=== PATIENT | female | born 1945 | race Caucasian/White ===

== ENCOUNTER → 2016-12-01 | Outpatient (REF) | payer MEDICARE, BC | LOC: M LAB REF 16:26 | PROVIDERS: ATTEND Family Medicine | DX: Z01.89 Encounter for other specified special examinations (principal) ==

== ENCOUNTER → 2016-12-31 | Outpatient (CLI) | payer MEDICARE, BC ==
--- NOTE | 2016-12-31 15:36 | REPMRS ---
Patient History The patient states she has not had a clinical breast exam in over a year. Patient is postmenopausal. Family history of ovarian cancer in mother at age 45, breast cancer in maternal aunt at age 50 or over, ovarian cancer in maternal aunt, and colorectal cancer in paternal grandmother. Digital Woman Screen Mammo: December 31, 2016 - Exam #: [id number] Bilateral CC and MLO view(s) were taken. Technologist: Karlene Colvin, Technologist Prior study comparison: December 18, 2015, digital woman screen mammo performed at [facility]. November 16, 2014, digital woman screen mammo performed at [facility]. FINDINGS: There are scattered fibroglandular densities. There has been no change in the appearance of the mammogram from the prior studies. There is a mild amount of residual fibroglandular tissue which is fairly symmetric. There is no interval development of dominant mass, architectural distortion, or clustered microcalcification suggestive of malignancy. ASSESSMENT: BI-RADS/ACR category 1 mammogram. Negative. Recommendation Routine screening mammogram in 1 year (for women over age 40). This mammogram was interpreted with the aid of an FDA-approved computer-aided dectection system. Electronically Signed By: Ron West MD 12/31/16 [id number]
== END ==
LOC: M WHC 14:25
PROVIDERS: ATTEND Obstetrics & Gynecology
DX: Z12.31 Encounter for screening mammogram for malignant neoplasm of breast (principal); Z78.0 Asymptomatic menopausal state; Z80.41 Family history of malignant neoplasm of ovary

== ENCOUNTER 2017-03-26 07:34 | Day surgery (SDC) | payer MEDICARE, BC ==
[~2017-03-26] VITALS: Ht 162.6 cm; Wt 85.3 kg
[~2017-03-26 07:34] MED LIST: FISH500C PO; LEVO175T2 PO; MULT1TAB10 PO; OMEP40CA2 PO; SERT-138 PO; SIMV20TA2 PO; TROS60CA2 PO
[2017-03-26] MEDS ORDERED: NS 1,000 ML IV ONE (08:00)
[2017-03-26] MEDS ORDERED: LIDOCAINE 2% INJ 100 MG/5 ML SDV (FOR ANES.) As Ordered ONE (08:42)
[2017-03-26] MEDS ORDERED: PROPOFOL 200 MG/20 ML VIAL As Ordered ONE ×2 (08:42→09:01)
--- NOTE | 2017-03-26 09:09 | ROOR ---
Patient Name: Jane Winkler Procedure Date: 03/26/2017 8:32 AM Date of : 1945 Age: 72 Room: [facility] Gender: Female Note Status: Finalized Procedure: Colonoscopy Indications: Screening for colorectal malignant neoplasm Providers: Roby Hunt Jr, MD Referring MD: Hari Morales MD Requesting Provider: Medicines: Propofol per Anesthesia Complications: No immediate complications. Procedure: Pre-Anesthesia Assessment: - Prior to the procedure, a History and Physical was performed, and patient medications and allergies were reviewed. The patient is competent. The risks and benefits of the procedure and the sedation options and risks were discussed with the patient. All questions were answered and informed consent was obtained. Patient identification and proposed procedure were verified by the physician and the nurse in the pre-procedure area and in the procedure room. Mental Status Examination: alert and oriented. Airway Examination: normal oropharyngeal airway and neck mobility. Respiratory Examination: clear to auscultation. CV Examination: normal. ASA Grade Assessment: II - A patient with mild systemic disease. After reviewing the risks and benefits, the patient was deemed in satisfactory condition to undergo the procedure. The anesthesia plan was to use moderate sedation / analgesia (conscious sedation). Immediately prior to administration of medications, the patient was re-assessed for adequacy to receive sedatives. The heart rate, respiratory rate, oxygen saturations, blood pressure, adequacy of pulmonary ventilation, and response to care were monitored throughout the procedure. The physical status of the patient was re-assessed after the procedure. The Colonoscope was introduced through the anus and advanced to the cecum, identified by appendiceal orifice and ileocecal valve. The colonoscopy was performed with moderate difficulty due to a redundant colon and significant looping. The patient tolerated the procedure well. The quality of the bowel preparation was adequate and good. Findings: Multiple small and large-mouthed diverticula were found in the sigmoid colon. A few small-mouthed diverticula were found in the descending colon. The rectum, recto-sigmoid colon, descending colon, transverse colon, ascending colon, cecum, appendiceal orifice and ileocecal valve appeared normal. A diminutive polyp was found in the transverse colon. The polyp was removed with a jumbo cold forceps. Resection and retrieval were complete. Impression: - Diverticulosis in the sigmoid colon. - Diverticulosis in the descending colon. - The rectum, recto-sigmoid colon, descending colon, transverse colon, ascending colon, cecum, appendiceal orifice and ileocecal valve are normal. - One diminutive polyp in the transverse colon, removed with a jumbo cold forceps. Resected and retrieved. Recommendation: - Repeat colonoscopy in 5-10 years for surveillance based on pathology results. - Telephone my office for pathology results in 1 week. Roby Hunt MD Roby Hunt Jr, MD 03/26/2017 9:09:27 AM This report has been signed electronically. Number of Addenda: 0 Note Initiated On: 03/26/2017 8:32 AM Estimated Blood Loss: Estimated blood loss: none.
[2017-03-26 09:35] VITALS: BP 148/80
== END 2017-03-26 09:35 | disposition home or self-care (01) ==
LOC: M OPP 07:34
PROVIDERS: ATTEND Surgery
DX: Z12.11 Encounter for screening for malignant neoplasm of colon (principal); Z86.010 Personal history of colon polyps; D12.3 Benign neoplasm of transverse colon; K57.30 Diverticulosis of large intestine without perforation or abscess without bleeding; E03.9 Hypothyroidism, unspecified; Z87.19 Personal history of other diseases of the digestive system; R12 Heartburn; K21.9 Gastro-esophageal reflux disease without esophagitis; Z86.718 Personal history of other venous thrombosis and embolism; M19.90 Unspecified osteoarthritis, unspecified site; I63.9 Cerebral infarction, unspecified; Z96.652 Presence of left artificial knee joint; Z88.1 Allergy status to other antibiotic agents; Z88.5 Allergy status to narcotic agent; Z79.899 Other long term (current) drug therapy; Z80.42 Family history of malignant neoplasm of prostate; Z80.41 Family history of malignant neoplasm of ovary; Z87.891 Personal history of nicotine dependence

== ENCOUNTER → 2017-04-30 | Day surgery (SDC) | payer MEDICARE, BC ==
[~2017-04-30] VITALS: Ht 160 cm; Wt 84.7 kg
[~2017-04-30] MED LIST changes: +BUPIVACAINE HCL 0.25% 10 ML VIAL As Ordered ONE; +IBUPROFEN 600 MG TAB PO PRN; +LIDOCAINE 1% MDV 20ML VIAL SQ PRN; +LIDOCAINE 2% INJ 100 MG/5 ML SDV (FOR ANES.) As Ordered ONE; +LR 1,000 ML IV ONE; +LR 1,000 ML IV SCH; +MIDAZOLAM INJ 2 MG/2 ML VIAL (J2250) As Ordered ONE; +MORPHINE 10 MG/ML 1ML VIAL IV PRN; +ONDANSETRON 4MG/2ML VIAL (J2405) As Ordered ONE; +ONDANSETRON 4MG/2ML VIAL (J2405) IV PRN; +PERCOCET 5MG/325MG TAB PO PRN; +PROPOFOL 200 MG/20 ML VIAL As Ordered ONE; +dexameTHASONE 4 MG/ML 1ML VIAL (J1100) As Ordered ONE; +fentaNYL 100 MCG/2 ML INJECTION (J3010) As Ordered ONE
[2017-04-30] MEDS: VANCOMYCIN HCL 1,000 MG, VIAL MATE ADAPTER 1 EACH in D5W 250 ML IV ONE ×2 (07:20→08:20)
[2017-04-30 10:45] VITALS: BP 166/79
--- NOTE | 2017-05-02 21:14 | RO ---
DATE OF PROCEDURE: 04/30/2017 PREOPERATIVE DIAGNOSIS: Incontinence with intrinsic sphincteric deficiency. POSTOPERATIVE DIAGNOSIS: Incontinence with intrinsic sphincteric deficiency. PROCEDURE: Cystourethroscopy with periurethral bulking using Macroplastique. SURGEON: Dr. Carlota Perea TEACHER ASSISTANT: None. ANESTHESIA: MAC and local. She also had a periurethral local anesthetic block. DESCRIPTION OF PROCEDURE: Jane was brought to the operating room where sufficient sedation and then she was prepped, draped and positioned in the usual sterile fashion and a periurethral block using 0.25% Marcaine, approximately 4 mL was given. This was allowed to set up and then a cystoscope was placed. Her bladder was normal in appearance. The ureteral orifices were normal in appearance. There were normal jets of urine. The trigone was normal. A 360-degree evaluation of the bladder showed some changes consistent with the patient's age and history but no abnormalities. Backing into the urethra, though, at the bladder neck, the opening to the urethra was just wide open as shown in the operative photo. The needle for the Macroplastique was placed and then Macroplastique was used for periurethral bulking, injecting at 7 o'clock and 4 o'clock, approximately 1-1/2 ampules of Macroplastique used and following which the procedure was then ended with the bladder, of course, emptied at the end of the procedure. Estimated blood loss for the procedure was 1 mL or less. Fluid replacement was crystalloid. Complications: None. Jane tolerated the procedure well and was recovering in the recovery room in good condition.
== END | disposition home or self-care (01) ==
LOC: M SDC 07:05
PROVIDERS: ATTEND Obstetrics & Gynecology
DX: R32 Unspecified urinary incontinence (principal); N36.42 Intrinsic sphincter deficiency (ISD); E03.9 Hypothyroidism, unspecified; I10 Essential (primary) hypertension; K27.9 Peptic ulcer, site unspecified, unspecified as acute or chronic, without hemorrhage or perforation; K21.9 Gastro-esophageal reflux disease without esophagitis; M12.9 Arthropathy, unspecified; Z88.1 Allergy status to other antibiotic agents; Z88.5 Allergy status to narcotic agent; Z79.899 Other long term (current) drug therapy; Z86.718 Personal history of other venous thrombosis and embolism; Z86.73 Personal history of transient ischemic attack (TIA), and cerebral infarction without residual deficits; Z90.710 Acquired absence of both cervix and uterus; Z96.652 Presence of left artificial knee joint
CPT/HCPCS: 51715; J1100; J2250; J2405; J3010; J3370; L8606

== ENCOUNTER → 2018-01-13 | Outpatient (CLI) | payer MEDICARE, BC | LOC: M WHC 12:58 | DX: Z12.31 Encounter for screening mammogram for malignant neoplasm of breast (principal) | CPT/HCPCS: 77067 ==

== ENCOUNTER → 2018-03-15 | Outpatient (REF) | payer MEDICARE, BC ==
[2018-03-15 18:05] LABS: APPEARANCE, URINE CLEAR (CLEAR); BACTERIA, URINE AUTO NEGATIVE (NEGATIVE); BILIRUBIN, URINE AUTO NEGATIVE (NEGATIVE); BLOOD, URINE BLOOD NEGATIVE (NEGATIVE); COLOR, URINE STRAW (YELLOW); GLUCOSE, URINE (UA) AUTO NEGATIVE (NEGATIVE); KETONE, URINE AUTO NEGATIVE (NEGATIVE); LEUKOCYTE ESTERASE, URINE AUTO 1+ (NEGATIVE); NITRITE, URINE AUTO NEGATIVE (NEGATIVE); PROTEIN, URINE AUTO NEGATIVE (NEGATIVE); RBC, URINE AUTO 1 /HPF (0-3); SPECIFIC GRAVITY URINE AUTO 1.008 (1.002-1.035); SQUAMOUS EPITHELIAL CELL UR AU 1 /HPF (0-6); UROBILINOGEN, URINE AUTO 0.2 mg/dL (0.0-2.0); WBC, URINE AUTO 1 /HPF (0-3)
== END ==
LOC: M LAB REF 16:27
DX: R35.0 Frequency of micturition (principal); M54.5 Low back pain
CPT/HCPCS: 81001

== ENCOUNTER → 2018-03-29 | Outpatient (CLI) | payer MEDICARE, BC ==
[2018-03-29 17:13] LABS: BLOOD UREA NITROGEN 19 MG/DL (7-18)
[2018-03-29 17:13] LABS: CREATININE FOR GFR 0.65 MG/DL (0.55-1.30); GLOMERULAR FILTRATION RATE > 60.0 (>39)
== END ==
LOC: M WUC 15:12
DX: R10.31 Right lower quadrant pain (principal)
CPT/HCPCS: 82565

== ENCOUNTER → 2018-07-21 | Outpatient (CLI) | payer MEDICARE, BC ==
[~2018-07-21] MED LIST changes: -BUPIVACAINE HCL 0.25% 10 ML VIAL As Ordered ONE; -IBUPROFEN 600 MG TAB PO PRN; -LIDOCAINE 1% MDV 20ML VIAL SQ PRN; -LIDOCAINE 2% INJ 100 MG/5 ML SDV (FOR ANES.) As Ordered ONE; -LR 1,000 ML IV ONE; -LR 1,000 ML IV SCH; -MIDAZOLAM INJ 2 MG/2 ML VIAL (J2250) As Ordered ONE; -MORPHINE 10 MG/ML 1ML VIAL IV PRN; -ONDANSETRON 4MG/2ML VIAL (J2405) As Ordered ONE; -ONDANSETRON 4MG/2ML VIAL (J2405) IV PRN; -PERCOCET 5MG/325MG TAB PO PRN; -PROPOFOL 200 MG/20 ML VIAL As Ordered ONE; +ZANT300T9 PO; -dexameTHASONE 4 MG/ML 1ML VIAL (J1100) As Ordered ONE; -fentaNYL 100 MCG/2 ML INJECTION (J3010) As Ordered ONE
[2018-07-21 13:38] LABS: HEMATOCRIT 40.9 % (36.0-47.0); HEMOGLOBIN 13.4 g/dl (12.0-15.5); MEAN CORPUSCULAR HEMOGLOBIN 31.3 pg (27.0-33.0); MEAN CORPUSCULAR HGB CONC 32.8 g/dl (32.0-36.5); MEAN CORPUSCULAR VOLUME 95.6 fl (80.0-96.0); PLATELET COUNT, AUTOMATED 230 10^3/uL (150-450); RED BLOOD COUNT 4.28 10^6/uL (4.00-5.40); WHITE BLOOD COUNT 5.8 10^3/uL (4.0-10.0)
[2018-07-21 14:05] LABS: ALBUMIN 3.8 GM/DL (3.2-5.2); ALT/SGPT 23 U/L (12-78); BILIRUBIN,TOTAL 0.4 MG/DL (0.2-1.0); BLOOD UREA NITROGEN 22 MG/DL (7-18); CALCIUM LEVEL 9.6 MG/DL (8.8-10.2); CARBON DIOXIDE LEVEL 31 MEQ/L (21-32); CHLORIDE LEVEL 103 MEQ/L (98-107); GLOMERULAR FILTRATION RATE > 60.0 (>39); GLUCOSE, FASTING 87 MG/DL (70-100); POTASSIUM SERUM 4.4 MEQ/L (3.5-5.1); SODIUM LEVEL 139 MEQ/L (136-145); TOTAL PROTEIN 6.9 GM/DL (6.4-8.2)
--- NOTE | 2018-07-21 17:44 | ECGEPIP ---
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
== END ==
LOC: M LAB 13:11
PROVIDERS: ATTEND Anesthesiology
DX: Z01.810 Encounter for preprocedural cardiovascular examination (principal)

== ENCOUNTER 2018-07-27 06:21 | Day surgery (SDC) | payer MEDICARE, BC ==
[~2018-07-27] VITALS: Ht 162.6 cm; Wt 78.2 kg
[2018-07-27] MEDS ORDERED: ERTAPENEM SODIUM 1 GM in NS 50 ML IV ONE (07:00)
[2018-07-27] MEDS ORDERED: LR 1,000 ML IV ONE (07:00)
[2018-07-27] MEDS ORDERED: BUPIVACAINE/EPIN 0.25% 30 ML VIAL As Ordered ONE (07:12)
[2018-07-27] MEDS ORDERED: ONDANSETRON 4MG/2ML VIAL (J2405) As Ordered ONE (07:15)
[2018-07-27] MEDS ORDERED: ROCURONIUM BROMIDE 50 MG/5 ML VIAL As Ordered ONE (07:15)
[2018-07-27] MEDS ORDERED: PROPOFOL 200 MG/20 ML VIAL As Ordered ONE (07:15)
[2018-07-27] MEDS ORDERED: LIDOCAINE 2% INJ 100 MG/5 ML SDV (FOR ANES.) As Ordered ONE (07:15)
[2018-07-27] MEDS ORDERED: METOCLOPRAMIDE INJ 10MG/2ML VIAL (J2765) As Ordered ONE (07:15)
[2018-07-27] MEDS ORDERED: fentaNYL 100 MCG/2 ML INJECTION (J3010) As Ordered ONE (07:17)
[2018-07-27] MEDS ORDERED: MIDAZOLAM INJ 2 MG/2 ML VIAL (J2250) As Ordered ONE (07:17)
[2018-07-27] MEDS ORDERED: SUGAMMADEX SODIUM 500 MG/5 ML VIAL (BRIDION) As Ordered ONE (08:02)
[2018-07-27] MEDS ORDERED: LABETALOL HCL 100 MG/20 ML VIAL As Ordered ONE (08:33)
[2018-07-27] MEDS ORDERED: BUPIVACAINE LIPOSOME/PF 1.3% 20ML VIAL (13.3MG/ML)(EXPAREL)(C9290 PER1MG) As Ordered ONE (08:35)
[2018-07-27] MEDS ORDERED: PERCOCET 5MG/325MG TAB As Ordered ONE (09:12)
[2018-07-27] MEDS ORDERED: fentaNYL 100 MCG/2 ML INJECTION (J3010) IV PRN (09:15)
[2018-07-27] MEDS ORDERED: ONDANSETRON 4MG/2ML VIAL (J2405) IV PRN ×2 (09:15)
[2018-07-27] MEDS ORDERED: LR 1,000 ML IV SCH ×2 (09:15)
[2018-07-27] MEDS ORDERED: KETOROLAC 30 MG/ML VIAL (J1885) IV SCH (09:15)
[2018-07-27] MEDS ORDERED: MEPERIDINE INJ 25 MG/ML VIAL (J2175) IV PRN (09:15)
[2018-07-27] MEDS ORDERED: METOCLOPRAMIDE INJ 10MG/2ML VIAL (J2765) IV PRN (09:15)
[2018-07-27] MEDS ORDERED: PERCOCET 5MG/325MG TAB PO PRN (09:45)
[2018-07-27 11:10] VITALS: BP 187/84
--- NOTE | 2018-07-27 22:37 | RO ---
DATE OF PROCEDURE: 07/27/2018 PREOPERATIVE DIAGNOSIS: Abnormal appendix. History of appendicitis. POSTOPERATIVE DIAGNOSIS: Abnormal appendix. History of appendicitis. OPERATIVE PROCEDURE: Laparoscopic appendectomy. SURGEON: Roby Hunt MD CNC MILLING MACHINIST: ANESTHESIA: General endotracheal anesthesia ESTIMATED BLOOD LOSS: Minimal. FLUIDS: Crystalloid. BRIEF PROCEDURE SUMMARY The patient was brought to the operating room and was given general anesthesia. After adequate anesthesia and preoperative antibiotics were given, the patient was prepped and draped in the usual sterile fashion. Next, a supraumbilical incision was made with skin knife. Blunt dissection was carried down to fascia. Veress needle placed into the abdominal cavity insufflated to 15 mm of pressure. A 5 mm trocar was placed at this time and under direct visualization a left lateral 5 mm trocar was placed. There were numerous adhesions of the omentum up against the midline incision where the previous hysterectomy lower midline incision had been performed and thus a second left lower quadrant 5 mm trocar was placed and the adhesions were taken down with harmonic scalpel. 12 mm trocar was replaced at the umbilicus. Then the colon was evaluated. It was mobilized. First the ascending colon was followed down to the right pelvic sidewall and then eventually the cecum was seen and some adhesions were taken down on the right lateral abdominal wall first and then after these were taken down, the appendix was mobilized out of the pelvis and the mesoappendix was transected using a harmonic scalpel. This provided good hemostasis and the dissection continued all the way to the base of the appendix. The appendix was quite enlarged and dilated and had a firm mass within the distal portion of this. It is hard to tell if this was a mucocele or a lesion within the appendix itself. In any case, the base of the appendix was transected using the Endo-LUI stapler placed in an EndoCatch bag and brought out through a supraumbilical incision. Once again this lesion was quite large and the incision needed to be extended to about 3 cm to get this large appendix out. Once it was removed the trocars removed under direct visualization, #0 Vicryl was used to close the fascia at the supraumbilical site and #4-0 Vicryl was used to approximate the skin. Steri-Strips and a dry sterile dressing was applied. The patient was awakened from her anesthesia, extubated, brought to the recovery room awake, alert and hemodynamically stable. Sponge and needle counts correct times two.
== END 2018-07-27 11:25 | disposition home or self-care (01) ==
LOC: M SDC 06:21
PROVIDERS: ATTEND Surgery
DX: K38.8 Other specified diseases of appendix (principal); E03.9 Hypothyroidism, unspecified; E78.00 Pure hypercholesterolemia, unspecified; E66.9 Obesity, unspecified; R32 Unspecified urinary incontinence; Z88.1 Allergy status to other antibiotic agents; Z88.5 Allergy status to narcotic agent; Z79.899 Other long term (current) drug therapy; Z87.19 Personal history of other diseases of the digestive system; Z86.718 Personal history of other venous thrombosis and embolism; Z96.652 Presence of left artificial knee joint; Z86.73 Personal history of transient ischemic attack (TIA), and cerebral infarction without residual deficits; Z90.710 Acquired absence of both cervix and uterus
CPT/HCPCS: 44970; 88304; C9290; J1335; J1885; J2250; J2405; J2765; J3010

== ENCOUNTER → 2019-02-09 | Outpatient (CLI) | payer MEDICARE, BC ==
--- NOTE | 2019-02-09 14:40 | REPMRS ---
Patient History The patient states she had a clinical breast exam in 12/2018. Patient is postmenopausal. Patient had tested negative for BRCA1 and negative for BRCA2. Family history of ovarian cancer at age 45 in mother, breast cancer at age 50 or over and ovarian cancer at age 50 or over in maternal aunt, colorectal cancer under age 50 in paternal grandmother. 3D TOMOSYNTHESIS WAS PERFORMED. The [facility] lifetime risk for breast cancer is 4.5%. Digital Woman Screen Mammo: February 09, 2019 - Exam #: [id number] Bilateral CC and MLO view(s) were taken. Technologist: Bren Grewal, Technologist Prior study comparison: January 13, 2018, bilateral digital woman screen mammo performed at [facility]. December 31, 2016, digital woman screen mammo performed at [facility]. FINDINGS: The breast tissue is heterogeneously dense. This may lower the sensitivity of mammography. There has been no change in the appearance of the mammogram from the prior studies. There is a moderate amount of residual fibroglandular tissue which is fairly symmetric. There is no interval development of dominant mass, areas of architectural distortion, or clustered microcalcification typical of malignancy. Assessment: BI-RADS/ACR category 1 mammogram. Negative Mammogram. Recommendation Routine screening mammogram in 1 year (for women over age 40). This mammogram was interpreted with the aid of an FDA-approved computer-aided dectection system. Electronically Signed By: Ron West MD 02/09/19 [id number]
== END ==
LOC: M WHC 12:55
PROVIDERS: ATTEND Obstetrics & Gynecology
DX: Z12.31 Encounter for screening mammogram for malignant neoplasm of breast (principal); Z78.0 Asymptomatic menopausal state; Z80.41 Family history of malignant neoplasm of ovary

== ENCOUNTER 2019-05-28 23:22 | Emergency (ER) | payer MEDICARE, BC ==
[~2019-05-28] VITALS: Ht 162.6 cm; Wt 77.3 kg
[~2019-05-28 23:22] MED LIST changes: -OMEP40CA2 PO; +OMEP40CA97 PO; -SIMV20TA2 PO; +SIMV20TA22 PO
--- NOTE | 2019-05-29 00:03 | REPVR ---
PROCEDURE INFORMATION: Exam: CT Head Without Contrast Exam date and time: 05/28/2019 11:40 PM Age: 74 years old Clinical indication: Injury or trauma; Fall; Initial encounter; Blunt trauma (contusions or hematomas); With loss of consciousness; Not specified; Additional info: Fall loc TECHNIQUE: Imaging protocol: Computed tomography of the head without contrast. Radiation optimization: All CT scans at this facility use at least one of these dose optimization techniques: automated exposure control; mA and/or kV adjustment per patient size (includes targeted exams where dose is matched to clinical indication); or iterative reconstruction. COMPARISON: No relevant prior studies available. FINDINGS: Brain: Thin parafalcine subdural hematoma measuring up to 6 mm thick. Hematoma extends along the right tentorial leaflet. No intra-axial hemorrhage or signs of recent infarction. Additional density over the left anterior frontal lobe may be an artifact related to motion versus additional small subdural hemorrhage. Midline shift: No midline shift or herniation. Ventricles: Normal. No ventriculomegaly. Bones/joints: Unremarkable. No acute fracture. Sinuses: Visualized sinuses are unremarkable. No fluid levels. Mastoid air cells: Visualized mastoid air cells are well aerated. Soft tissues: Large right posterior scalp hematoma . Other findings: The exam is degraded by patient motion artifact. IMPRESSION: 1. Parafalcine subdural hematoma extending along the right tentorial leaflet. 2. Possible left frontal subdural hematoma versus artifact related to patient motion. Short-term follow-up is suggested. 3. No midline shift or herniation. 4. Posterior scalp hematoma. 5. Motion limited exam. Electronically signed by: Michael rG On 05/29/2019 00:02:29 AM
--- NOTE | 2019-05-29 00:10 | REPVR ---
PROCEDURE INFORMATION: Exam: CT Cervical Spine Without Contrast Exam date and time: 05/28/2019 11:40 PM Age: 74 years old Clinical indication: Injury or trauma; Fall; Initial encounter; Blunt trauma; Additional info: Fall loc TECHNIQUE: Imaging protocol: Computed tomography images of the cervical spine without contrast. Radiation optimization: All CT scans at this facility use at least one of these dose optimization techniques: automated exposure control; mA and/or kV adjustment per patient size (includes targeted exams where dose is matched to clinical indication); or iterative reconstruction. COMPARISON: No relevant prior studies available. FINDINGS: Vertebrae: Straightening of the normal cervical lordosis without subluxation. No fracture or bone lesions. Multilevel facet DJD. Discs/Spinal canal/Neural foramina: Multilevel discogenic degenerative changes. No bony spinal stenosis. Mild multilevel foraminal stenosis. Soft tissues: Unremarkable. Lungs: Lung apices are normal. IMPRESSION: 1. Advanced degenerative spondylosis. 2. No fracture or malalignment. Electronically signed by: Michael Gr On 05/29/2019 00:10:01 AM
[2019-05-29] MEDS ORDERED: niCARdipine IV 40 MG in IV 1 EA IV SCH (00:45)
[2019-05-29 00:48] LABS: BASO # 0.1 10^3/uL (0.0-0.2); BASO % 0.8 % (0.0-1.0); EOS # 0.1 10^3/uL (0.0-0.5); EOS % 1.5 % (0.0-3.0); HEMOGLOBIN 14.9 g/dl (12.0-15.5); LYMPH # 1.4 10^3/uL (1.5-5.0); LYMPH % 15.7 % (24.0-44.0); MEAN CORPUSCULAR HEMOGLOBIN 30.8 pg (27.0-33.0); MEAN CORPUSCULAR HGB CONC 31.7 g/dl (32.0-36.5); MEAN CORPUSCULAR VOLUME 97.1 fl (80.0-96.0); MONO # 0.5 10^3/uL (0.0-0.8); MONO % 5.3 % (0.0-5.0); NEUTROPHILS # 6.8 10^3/uL (1.5-8.5); NEUTROPHILS % 76.3 % (36.0-66.0); PLATELET COUNT, AUTOMATED 211 10^3/uL (150-450); RED BLOOD COUNT 4.84 10^6/uL (4.00-5.40); WHITE BLOOD COUNT 8.9 10^3/uL (4.0-10.0)
[2019-05-29] MEDS ORDERED: MULTTAB61 PO (00:55)
[2019-05-29] MEDS ORDERED: NIZA150C4 PO (00:55)
[2019-05-29 01:01] LABS: INR 0.93; PROTHROMBIN TIME 12.1 SECONDS (11.8-14.0)
[2019-05-29 01:16] LABS: BLOOD UREA NITROGEN 18 MG/DL (7-18); CALCIUM LEVEL 9.4 MG/DL (8.8-10.2); CARBON DIOXIDE LEVEL 27 MEQ/L (21-32); CHLORIDE LEVEL 105 MEQ/L (98-107); CREATININE FOR GFR 0.69 MG/DL (0.55-1.30); GLOMERULAR FILTRATION RATE > 60.0 (>39); GLUCOSE, FASTING 101 MG/DL (70-100); POTASSIUM SERUM 3.8 MEQ/L (3.5-5.1); SODIUM LEVEL 140 MEQ/L (136-145)
[2019-05-29 01:22] VITALS: BP 123/62
== END 2019-05-29 01:28 | disposition short-term general hospital (02) ==
LOC: M ED 23:22
DX: S06.5X0A Traumatic subdural hemorrhage without loss of consciousness, initial encounter (principal); W10.8XXA Fall (on) (from) other stairs and steps, initial encounter; Y92.018 Other place in single-family (private) house as the place of occurrence of the external cause; J45.909 Unspecified asthma, uncomplicated; E78.00 Pure hypercholesterolemia, unspecified; Z79.899 Other long term (current) drug therapy; Z88.1 Allergy status to other antibiotic agents; Z88.5 Allergy status to narcotic agent

== ENCOUNTER → 2019-06-15 | Outpatient (CLI) | payer MEDICARE, BC ==
[~2019-06-15] MED LIST changes: +MULTTAB61 PO; +NIZA150C4 PO
--- NOTE | 2019-06-15 14:53 | REP ---
PA and lateral chest: Comparison is 07/28/2008. The lung dunaway are clear. The cardiac size is normal. The lewis, mediastinum, and skeletal structures are unremarkable. Impression: Negative PA and lateral chest. There is no interval change. Electronically Signed by Ron Porras MD 06/15/2019 02:44 P
[2019-06-15 18:39] LABS: INFLUENZA A AMPLIFICATION POSITIVE (NEGATIVE); INFLUENZA B AMPLIFICATION NEGATIVE (NEGATIVE)
== END ==
LOC: M WUC 14:34
PROVIDERS: ATTEND Registered Nurse
DX: R50.9 Fever, unspecified (principal); R05 Cough

== ENCOUNTER 2019-08-13 10:22 | Emergency (ER) | payer MEDICARE, BC ==
[~2019-08-13] VITALS: Ht 162.6 cm; Wt 79.0 kg
[2019-08-13] MEDS ORDERED: VALA1TAB5 (10:32)
[2019-08-13] MEDS ORDERED: VALT1TAB PO (12:08)
[2019-08-13] MEDS ORDERED: ERYT1OIN26 OP (12:09)
[2019-08-13 12:17] VITALS: BP 159/86
== END 2019-08-13 12:18 | disposition home or self-care (01) ==
LOC: M ED 10:22
DX: H10.32 Unspecified acute conjunctivitis, left eye (principal); B02.9 Zoster without complications; Z88.1 Allergy status to other antibiotic agents; Z88.5 Allergy status to narcotic agent; Z79.899 Other long term (current) drug therapy; Z79.890 Hormone replacement therapy

== ENCOUNTER → 2020-03-20 | Outpatient (CLI) | payer MEDICARE, BC ==
[~2020-03-20] MED LIST changes: +ERYT5OIN25 OP; +VALA1TAB5; +VALT1TAB PO
--- NOTE | 2020-03-20 14:40 | REPMRS ---
Patient History The patient states she had a clinical breast exam in 01/2020. Patient is postmenopausal. Patient had tested negative for BRCA1 and negative for BRCA2. Family history of ovarian cancer at age 45 in mother, breast cancer at age 50 or over and ovarian cancer at age 50 or over in maternal aunt, colorectal cancer under age 50 in paternal grandmother. No Hormone Replacement Therapy Digital Woman Screen Mammo: March 20, 2020 - Exam #: [id number] Bilateral CC and MLO view(s) were taken. Technologist: Karlene Colvin, Technologist Prior study comparison: February 09, 2019, bilateral digital woman screen mammo performed at [facility]. January 13, 2018, bilateral digital woman screen mammo performed at [facility]. December 31, 2016, digital woman screen mammo performed at [facility]. FINDINGS: There are scattered fibroglandular densities. The Volpara volumetric breast density category is:B. There has been no change in the appearance of the mammogram from the prior studies. There is a mild amount of scattered fibroglandular density which is fairly symmetric. There is no interval development of dominant mass, architectural distortion, or grouped microcalcification suggestive of malignancy. 3-D tomosynthesis shows no additional findings. Assessment: BI-RADS/ACR category 1 mammogram. Negative Mammogram. Recommendation Routine screening mammogram of both breasts in 1 year (for women over age 40). This patient's Lifetime Breast Cancer Risk is estimated at 4.0 %. This mammogram was interpreted with the aid of an FDA-approved computer-aided dectection system. Electronically Signed By: Mihir Gilmore MD 03/20/20 [id number]
== END ==
LOC: M WHC 13:35
PROVIDERS: ATTEND Obstetrics & Gynecology
DX: Z12.31 Encounter for screening mammogram for malignant neoplasm of breast (principal); Z80.41 Family history of malignant neoplasm of ovary; Z80.0 Family history of malignant neoplasm of digestive organs

== ENCOUNTER 2020-07-30 16:10 | Emergency (ER) | payer MEDICARE, BC ==
[~2020-07-30] VITALS: Ht 160 cm; Wt 81.8 kg
[~2020-07-30 16:10] MED LIST changes: -COLA100C5 PO; -GASTROGRAFIN SOLUTION 30ML (Q9963) As Ordered ONE; -ISOVUE-370 76% 100ML VIAL As Ordered ONE
[2020-07-30 16:57] LABS: BASO # 0.1 10^3/uL (0.0-0.2); EOS # 0.2 10^3/uL (0.0-0.5); EOS % 3.9 % (0.0-3.0); HEMATOCRIT 41.5 % (36.0-47.0); HEMOGLOBIN 13.6 g/dl (12.0-15.5); LYMPH # 1.6 10^3/uL (1.5-5.0); LYMPH % 26.8 % (24.0-44.0); MEAN CORPUSCULAR HEMOGLOBIN 31.9 pg (27.0-33.0); MEAN CORPUSCULAR HGB CONC 32.8 g/dl (32.0-36.5); MEAN CORPUSCULAR VOLUME 97.4 fl (80.0-96.0); MONO # 0.5 10^3/uL (0.0-0.8); MONO % 8.1 % (2.0-8.0); NEUTROPHILS # 3.5 10^3/uL (1.5-8.5); NEUTROPHILS % 59.9 % (36.0-66.0); PLATELET COUNT, AUTOMATED 253 10^3/uL (150-450); RED BLOOD COUNT 4.26 10^6/uL (4.00-5.40); WHITE BLOOD COUNT 5.8 10^3/uL (4.0-10.0)
[2020-07-30] MEDS ORDERED: COLA100C5 PO (18:43)
[2020-07-30 19:33] VITALS: BP 141/82
== END 2020-07-30 19:34 | disposition home or self-care (01) ==
LOC: M ED 16:10
DX: K59.00 Constipation, unspecified (principal); J45.909 Unspecified asthma, uncomplicated; E07.9 Disorder of thyroid, unspecified; E78.5 Hyperlipidemia, unspecified; Z87.19 Personal history of other diseases of the digestive system; Z79.899 Other long term (current) drug therapy; Z79.890 Hormone replacement therapy; Z88.5 Allergy status to narcotic agent; Z88.8 Allergy status to other drugs, medicaments and biological substances
CPT/HCPCS: 36415; 74178; 80047; 83605; 83690; 85025; 86677; 99284; Q9963; Q9967

== ENCOUNTER → 2020-07-30 | Outpatient (CLI) | payer MEDICARE, BC ==
[~2020-07-30] MED LIST changes: +COLA100C5 PO; +GASTROGRAFIN SOLUTION 30ML (Q9963) As Ordered ONE; +ISOVUE-370 76% 100ML VIAL As Ordered ONE
--- NOTE | 2020-07-30 15:54 | REP ---
INDICATION: EPIGASTRIC PAIN RT FLANK PAIN. COMPARISON: Abdomen/pelvis CT of 03/30/2018. TECHNIQUE: Abdomen pelvis CT without and with IV contrast and with bowel contrast FINDINGS: The distal approximate 20-30 cm of small bowel including the terminal ileum have a distinctly abnormal appearance as a change from the comparison study. This could represent ischemic versus infectious versus inflammatory ileitis and enteritis. There is no ascites. There is no pneumoperitoneum. There is no bowel obstruction. However, there is a large volume of fecal residue throughout the entire colon ho more predominant in the ascending and transverse colon, compatible with constipation.. There is diverticulosis of the descending colon and sigmoid colon without CT evidence of diverticulitis. The visualized lung dunaway are unremarkable except for fiber linear scarring. The ovoid right pelvic cystic mass identified previously is no longer present. The patient has an appendectomy and hysterectomy. The hepatic parenchyma, gallbladder, pancreas, spleen, adrenals, kidneys and abdominal aorta are unremarkable. There is no periaortic adenopathy or mass. There is calcified atheroma throughout the abdominal aorta. A [place] filter is again noted in the vena cava. Pelvis: The bladder is distended but otherwise unremarkable. The vaginal cuff and adnexa are unremarkable. IMPRESSION: Abnormal distal 20 to 30 cm the small bowel including the terminal ileum compatible with ischemic versus inflammatory versus infectious ileitis and enteritis. There is no ascites or pneumoperitoneum. There is a large volume of fecal residue particularly in the ascending colon and transverse colon compatible with constipation. There are no masses or adenopathy. Hysterectomy and appendectomy. On the comparison study there was an ovoid cystic structure in the pelvis on the right. This is no longer present. Telma filter. <Electronically signed by Ron Porras > 07/30/20 [id number]
[2020-07-30 19:05] LABS: H PYLORI QUALITATIVE IgG NEGATIVE (NEGATIVE)
== END ==
LOC: M RAD 13:10
PROVIDERS: ATTEND Nurse Practitioner Adult Health
DX: R10.13 Epigastric pain (principal)
CPT/HCPCS: 74178; 83690; 86677; Q9963; Q9967

== ENCOUNTER → 2021-03-16 | Outpatient (CLI) | payer MEDICARE, BC ==
[~2021-03-16] MED LIST changes: +ALBU8.5H; +COLA100C5 PO; +GABA-282 PO; +OMEP40CA4 PO; -OMEP40CA97 PO; +SYNT175T2; +TROS20TA3; +ZOLO100T PO
== END ==
LOC: M LABSMTC 10:44
PROVIDERS: ATTEND Anesthesiology
DX: Z01.818 Encounter for other preprocedural examination (principal); Z11.52 Encounter for screening for COVID-19

== ENCOUNTER 2021-03-21 06:12 | Day surgery (SDC) | payer MEDICARE, BC ==
[~2021-03-21] VITALS: Ht 160 cm; Wt 85.3 kg
[~2021-03-21 06:12] MED LIST changes: +LIDOCAINE 1% MDV 20ML VIAL SQ PRN; +LR 1,000 ML IV ONE; +VANCOMYCIN HCL 1,000 MG, VIAL MATE ADAPTER 1 EACH in NS 250 ML IV ONE
--- OUTSIDE RECORDS SUMMARY | 2021-03-21 06:16 | CCD | Continuity of Care Document ---
Author Author Jane MORALES M.D. Organization Unknown Address [address] [address] Phone [phone] Care Team Providers [facility] Climate Change Analyst Name Role Phone Hari Morales MD AUTM [phone] Carlota Perea MD AUTM [phone] [facility] AUTM [phone] Problems Active Problems Provider Date Backache Onset: 03/12/2011 Hemorrhoids Onset: 04/17/2010 Mixed hyperlipidemia Onset: 04/04/2010 Chronic osteoarthritis Onset: Hypothyroidism Onset: Anxiety disorder Onset: Chronic obstructive lung disease Onset: Anemia Onset: Social History Type Date Description Comments Sex Unknown ETOH Use Occasionally consumes alcohol 1 bottle of wine per week Tobacco Use Start: Unknown End: Unknown Patient is a former smoker ppd x 25 years quit 1996 Allergies, Adverse Reactions, Alerts Active Allergies Criticality Reaction | Severity Comments Date Penicillin Unable to assess criticality Mild 07/03/2008 Hydrocodone Unable to assess criticality Moderate 07/03/2008 Cephalosporins Unable to assess criticality Moderate rash, heidy a 07/03/2008 Medications Active Medications SIG Qnty Indications Ordering Provide r Date Pepcid 20mg Tablets 1 by mouth twice a day (takes OTC) 60tabs Hari Morales M.D. 03/12/2020 Neurontin 300mg Capsules 1 tablet by mouth four times a day 360caps Hari Morales M.D. 08/16/2019 Proair HFA 108(90Base) mcg/Act Aer osol 2 puffs every 4 hours as needed for cough/shortness of breath 8.500gm J20.9 Hari Morales M.D. 06/17/2018 Ketoconazole 2% Cream apply to effected area topically twice a day (face) 15gm Hari Morales M.D. 12/02/2017 Multivitamins Capsules 1 by mouth every day Hari Morales M.D. 05/25/2015 Synthroid 175mcg Tablets 1pill by mouth every day Charlie 90tapaulina Morales M.D. 11/20/2014 Sertraline HCL 100mg Tablets take one and a half tabs by mouth every day 135tabs Murray Ybarra 07/24/2014 Simvastatin 20mg Tablets 1 by mouth daily 90tabs Hari Morales M.D. Alprazolam 0.25mg Tablets one pill by mouth every eight hours as needed, 40tabs Hari hooker M.D. Trospium Chloride ER 60mg Caps ER 24HR take one capsule daily Unknown 0 Administration Of Flu Vaccine Inj ection Unknown Medications Administered in Office Medication SIG Qnty Indications Ordering Provider Date Administration Of Flu Vaccine Inj micky Morales M.D. 02/09/2020 Administration Of Flu Vaccine Inj ronion Hari Morales M.D. 02/10/2019 Administration Of Flu Vaccine Inj ronion Hari Morales M.D. 02/18/2018 Administration Of Flu Vaccine Inj ronion Hari Morales M.D. 02/19/2017 Administration Of Flu Vaccine Inj ronion Hari Morales M.D. 02/13/2016 Administration Of Flu Vaccine Inj ection KEVIN Montes 03/05/2015 Immunizations CPT Code Status Date Vaccine Lot # 51825 Given 02/09/2020 Influenza Vaccin e Quadrivalent Preser/Antibiotic Free Im Use [id number] 75065 Given 02/10/2019 Influenza Vaccin e Quadrivalent Preser/Antibiotic Free Im Use 675356 41714 Given 02/18/2018 Influenza Virus Vaccine, Quadrivalent ([id number]), Derived From 8 Given 02/19/2017 Influenza Vaccin e Quadrivalent Preser/Antibiotic Free Im Use 190220 Q2037 Given 02/13/2016 Fluvirin Virus Vaccine 38918 01 Q2037 Given 03/05/2015 Fluvirin Virus Vaccine 75924 01 65135 Given 03/07/2014 Influenza Virus Vaccine 16236 Given 08/08/2013 Pneumovax 23 16620 Given 02/14/2013 Influenza Virus Vaccine 66071 Given 03/04/2012 Influenza Virus Vaccine 46980 Given 02/19/2011 Influenza Virus Vaccine 92498 Given 10/02/2010 Zoster Vaccine 44030 Given 04/18/2010 Adacel- Tetanus Diphtheria P ertussis 19349 Given 02/27/2010 Influenza Virus Vaccine 17654 Given 04/10/1999 Hepatitis B Rey Adoles For I ntramuscular Use 15190 Given 04/10/1999 Hepatitis A Vaccine Adult Do moon Vital Signs Date Vital Result Comment 01/28/2021 11:31am BP Systolic 140 mmHg BP Diastolic 76 mmHg Heart Rate 70 /min Height 64 inches 5'4" Weight 188.00 lb BMI (Body Mass Index) 32.3 kg/m2 09/11/2020 1:36pm BP Systolic 140 mmHg BP Diastolic 76 mmHg Heart Rate 68 /min Height 64 inches 5'4" Weight 191.00 lb BMI (Body Mass Index) 32.8 kg/m2 Results Test Acquired Date Facility Test Result H/L Range Note Comprehensive Chem Profile 01/25/2021 [facility] [employer] Machine Operator: [place] [address] [phone] Glucose 92 mg/dL 74 - 99 1 BUN 17 mg/dL 7 - 18 Creatinine 0.7 mg/dL 0.6 - 1.3 Sodium 141 mEq/L 136 - 145 Potassium 4.6 mEq/L 3.5 - 5.1 Chloride 104 mEq/L 98 - 107 Carbon Dioxide 32 mEq/L 21 - 32 Calcium 9.7 mg/dL 8.5 - 10.1 Alk. Phosphatase 67 mg/dL 46 - 116 Total Bilirubin 0.6 mg/dL 0.2 - 1.0 Ast (Sgot) 19 U/L 15 - 37 Alt (SGPT) 29 U/L 12 - 78 Albumin 3.9 g/dL 3.4 - 5.0 Total Protein 7.0 g/dL 6.4 - 8.2 A/G Ratio 1.26 CALC 1.00 - 1.90 GFR >= 60 mL/min >60 GFR >= 60 mL/min >60 2 Lipid Profile 01/25/2021 [facility] , [employer] Operator: [place] [address] [phone] Cholesterol 226 mg/dL High 131 - 200 Triglycerides 49 mg/dL 30 - 150 HDL Cholesterol 91 mg/dL High 35 - 60 LDL (Calculated) 125 CALC 50 - 159 Laboratory test finding 01/25/2021 [facility], [employer] Machine Operator: Dr eKhinde [place]ckenna [place] [id number] [phone] Thyroid Stimulating Hormone 4.31 uIU/mL High 0.3 6 - 3.74 Complete Blood Count 01/25/2021 [facility] [employer] Machine Operator: Dr [place] [address] [phone] WBC 4.0 x10*3/UL Low 4.1 - 10.9 RBC 4.33 x10*6/UL 4.20 - 6.30 Hemoglobin 13.5 g/dL 12.0 - 18.0 Hematocrit 40.5 % 37.0 - 51.0 MCV 93.7 fL 80.0 - 97.0 MCH 31.3 pg 26.0 - 32.0 MCHC 33.4 g/dL 31.0 - 38.0 RDW 13.8 % High 11.6 - 13.7 PLT 225 x10*3/UL 140 - 440 MPV 7.3 FL Low 7.8 - 11.0 Lymph % 29.7 % 10.0 - 58.5 Mid % 7.0 % 1.7 - 9.3 Neut % 63.3 % 37.0 - 92.0 Lymph # 1.2 x10*3/UL 0.6 - 4.1 Mid # 0.3 x10*3/UL 0.1 - 0.6 Neut # 2.5 x10*3/UL 2.0 - 7.8 Laboratory test finding 09/10/2020 [facility], [employer] Machine Operator: [place] [address] [phone] T4 Free 0.76 ng/dL 0.76 - 1.46 Laboratory test finding 09/10/2020 [facility] [employer] Machine Operator: [place] [address] [phone] Thyroid Stimulating Hormone 3.10 uIU/mL 0.3 6 - 3.74 Lipid Profile 09/10/2020 [facility] [employer] Operator: Dr [place] [address] [phone] Cholesterol 201 mg/dL High 131 - 200 Triglycerides 46 mg/dL 30 - 150 HDL Cholesterol 95 mg/dL High 35 - 60 LDL (Calculated) 97 CALC 50 - 159 Comprehensive Chem Profile 09/10/2020 [facility] [employer] Operator: Dr [place] [address] [phone] Glucose 83 mg/dL 74 - 99 3 BUN 23 mg/dL High 7 - 18 Creatinine 0.7 mg/dL 0.6 - 1.3 Sodium 143 mEq/L 136 - 145 Potassium 4.6 mEq/L 3.5 - 5.1 Chloride 103 mEq/L 98 - 107 Carbon Dioxide 32 mEq/L 21 - 32 Calcium 8.8 mg/dL 8.5 - 10.1 Alk. Phosphatase 76 mg/dL 46 - 116 Total Bilirubin 0.6 mg/dL 0.2 - 1.0 Ast (Sgot) 23 U/L 15 - 37 Alt (SGPT) 30 U/L 12 - 78 Albumin 4.0 g/dL 3.4 - 5.0 Total Protein 7.2 g/dL 6.4 - 8.2 A/G Ratio 1.25 CALC 1.00 - 1.90 GFR >= 60 mL/min >60 GFR >= 60 mL/min >60 4 Complete Blood Count 09/10/2020 [facility] [employer] Machine Operator: [place] [address] [phone] WBC 3.9 x10*3/UL Low 4.1 - 10.9 RBC 4.26 x10*6/UL 4.20 - 6.30 Hemoglobin 13.3 g/dL 12.0 - 18.0 Hematocrit 39.7 % 37.0 - 51.0 MCV 93.3 fL 80.0 - 97.0 MCH 31.3 pg 26.0 - 32.0 MCHC 33.5 g/dL 31.0 - 38.0 RDW 14.2 % High 11.6 - 13.7 PLT 219 x10*3/UL 140 - 440 MPV 7.1 FL Low 7.8 - 11.0 Lymph % 33.2 % 10.0 - 58.5 Mid % 6.6 % 1.7 - 9.3 Neut % 60.2 % 37.0 - 92.0 Lymph # 1.3 x10*3/UL 0.6 - 4.1 Mid # 0.3 x10*3/UL 0.1 - 0.6 Neut # 2.3 x10*3/UL 2.0 - 7.8 Istat Chem8+ Panel 07/30/2020 [facility] nter [address] [place] [address] [phone] iSTAT HCT 41.0 % Normal 38.0-51.0 iSTAT Glucose 69 mg/dL Low 70-105 iSTAT Sodium 139 mEq/L Normal 136-145 iSTAT Potassium 4.1 mEq/L Normal 3.5-5.1 iSTAT CA++ 5.4 mg/dL High 4.5-5.3 iSTAT Chloride 101 mEq/L Normal 98-109 iSTAT Co2 31.0 MM/L High 23.0-27.0 iSTAT BUN 17 mg/dL Normal 8-26 iSTAT Creatinine 0.7 mg/dL Normal 0.6-1.3 Laboratory test finding 07/30/[address] [address] [phone] iSTAT Lactate 0.49 Normal 0.4-2.0 CBC With Differential 07/30/[address] [address] [phone] White Blood Count 5.8 10 Normal 4.0-10.0 Red Blood Count 4.26 10 Normal 4.00-5.40 Hemoglobin 13.6 g/dL Normal 12.0-15.5 Hematocrit 41.5 % Normal 36.0-47.0 Mean Corpuscular Volume 97.4 fl High 80.0-96.0 Mean Corpuscular Hemoglobin 31.9 pg Normal 27.0-33.0 Mean Corpuscular HGB Conc 32.8 g/dL Normal 32.0-36.5 Red Cell Distribution Width 13.2 % Normal 11.5-14.5 Platelet Count, Automated 253 10 Normal 150-450 Neutrophils % 59.9 % Normal 36.0-66.0 Lymph % 26.8 % Normal 24.0-44.0 [place] % 8.1 % High 2.0-8.0 Eos % 3.9 % High 0.0-3.0 Baso % 1.0 % Normal 0.0-1.0 Immature Granulocyte % 0.3 % Normal 0-3.0 Nucleated Red Blood Cell % 0.0 % Normal 0-0 Neutrophils # 3.5 10 Normal 1.5-8.5 Lymph # 1.6 10 Normal 1.5-5.0 [place] # 0.5 10 Normal 0.0-0.8 Eos # 0.2 10 Normal 0.0-0.5 Baso # 0.1 10 Normal 0.0-0.2 Laboratory test finding 07/30/2020 [facility] [address] [place], [place] [id number] [phone] Lipase 93 U/L Normal 73-393 H Pylori Qualitative Igg NEGATIVE Normal Negative 5 Complete Blood Count 07/30/2020 [facility] [employer] Machine Operator: [place] [address] [phone] WBC 4.9 x10*3/UL 4.1 - 10.9 RBC 4.04 x10*6/UL Low 4.20 - 6.30 Hemoglobin 12.9 g/dL 12.0 - 18.0 Hematocrit 37.1 % 37.0 - 51.0 MCV 91.8 fL 80.0 - 97.0 MCH 32.0 pg 26.0 - 32.0 MCHC 34.8 g/dL 31.0 - 38.0 RDW 13.6 % 11.6 - 13.7 PLT 277 x10*3/UL 140 - 440 MPV 7.2 FL Low 7.8 - 11.0 Lymph % 26.4 % 10.0 - 58.5 Mid % 5.9 % 1.7 - 9.3 Neut % 67.7 % 37.0 - 92.0 Lymph # 1.3 x10*3/UL 0.6 - 4.1 Mid # 0.3 x10*3/UL 0.1 - 0.6 Neut # 3.3 x10*3/UL 2.0 - 7.8 Comprehensive Chem Profile 07/30/2020 [facility] [employer] Operator: [place] [address] [phone] Glucose 80 mg/dL 74 - 99 6 BUN 18 mg/dL 7 - 18 Creatinine 0.8 mg/dL 0.6 - 1.3 Sodium 141 mEq/L 136 - 145 Potassium 4.6 mEq/L 3.5 - 5.1 Chloride 103 mEq/L 98 - 107 Carbon Dioxide 30 mEq/L 21 - 32 Calcium 9.7 mg/dL 8.5 - 10.1 Alk. Phosphatase 65 mg/dL 46 - 116 Total Bilirubin 0.5 mg/dL 0.2 - 1.0 Ast (Sgot) 18 U/L 15 - 37 Alt (SGPT) 24 U/L 12 - 78 Albumin 3.8 g/dL 3.4 - 5.0 Total Protein 7.0 g/dL 6.4 - 8.2 A/G Ratio 1.19 CALC 1.00 - 1.90 GFR >= 60 mL/min >60 GFR >= 60 mL/min >60 7 Ua Dipstick Only 07/30/2020 [facility] , [employer] Machine Operator: [place] [address] [phone] Urine Color YELLOW Yellow Urine Appearance CLEAR Clear Urine PH 6.5 units 5.0 - 9.0 Urine Specific Roy 1.015 1.005 - 1.030 Urine Leukocytes NEGATIVE Negative Urine Blood NEGATIVE Negative Urine Protein NEGATIVE Negative -Trace Urine Glucose NEGATIVE mg/dL Negative Urine Nitrite NEGATIVE Negative Urine Ketone NEGATIVE mg/dL Negative Urine Bilirubin NEGATIVE Negative Urine Urobilinogen 0.2 mg/dL 0.2 - 1.0 1 100-125 mg/dL PRE-DIABET ES/FASTING >126 mg/dL DIABETES/FASTING 2 CHRONIC KIDNEY DISEASE STAGI NG PER NKF STAGE I & II GFR >= 60 NORMAL TO MILDLY DECREASED STAGE III GFR 30-59 MODERATELY DECREASED STAGE IV GFR 15-29 SEVERELY DECREASED STAGE V GFR <15 VERY LITTLE GFR LEFT ESRD GFR <15 ON [employer]ILY [employer]ET[employer] 3 100-125 mg/dL PRE-DIABET ES/FASTING >126 mg/dL DIABETES/FASTING 4 CHRONIC KIDNEY DISEASE STAGI NG PER NKF STAGE I & II GFR >= 60 NORMAL TO MILDLY DECREASED STAGE III GFR 30-59 MODERATELY DECREASED STAGE IV GFR 15-29 SEVERELY DECREASED STAGE V GFR <15 VERY LITTLE GFR LEFT ESRD GFR <15 ON [employer]ILY [employer] 5 SERUM SAMPLES OBTAINED TOO E JACQUELINE DURING INFECTION MAY NOT CONTAIN DETECTABLE ANTIBODIES. IF H. PYLORI INFECTION IS SUSPECTED WITH A "NEGATIVE" SERUM RESULT, A FOLLOW UP SPECIMEN IS RECOMMENDED IN 2-7 WEEKS. 6 100-125 mg/dL PRE-DIABET ES/FASTING >126 mg/dL DIABETES/FASTING 7 CHRONIC KIDNEY DISEASE STAGI NG PER NKF STAGE I & II GFR >= 60 NORMAL TO MILDLY DECREASED STAGE III GFR 30-59 MODERATELY DECREASED STAGE IV GFR 15-29 SEVERELY DECREASED STAGE V GFR <15 VERY LITTLE GFR LEFT ESRD GFR <15 ON [employer]ILY [employer] Procedures Date Code Description Status 09/11/2020 45794 Office/Outpatient Established Mo d MDM 30-39 Min Completed 07/30/2020 39049 Office/Outpatient Established Lo w MDM 20-29 Min Completed 07/30/2020 28537 EKG/Interpretation & Report Comp leted 08/20/2019 [id number] Diabetic Retinal Eye Exam Comple parris 08/19/2019 [id number] Diabetic Retinal Eye Exam Comple parris 08/18/2019 [id number] Diabetic Retinal Eye Exam Comple parris 08/16/2019 [id number] Diabetic Retinal Eye Exam Comple parris 02/09/2019 [id number] Mammogram Completed 03/26/2017 [id number] Colonoscopy Completed 12/18/2015 [id number] Mammogram Completed 12/18/2011 [id number] Colonoscopy Completed Medical Devices Description No Information Available Encounters Type Date Location Provider Dx Diagnosis Office Visit 09/11/2020 1:30p [facility] Morales M.D. 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 09/11/2020 E03.9 Hypothyroidism, unspecified Alo Morales M.D. 09/11/2020 F41.9 Anxiety disorder, unspecified Wilder Morales M.D. 09/11/2020 D64.9 Anemia, unspecified Hari callejas M.D. 09/11/2020 B02.22 Postherpetic trigeminal neuralgi a Hari Morales M.D. 09/11/2020 J44.9 Chronic obstructive pulmonary di sease, aldoified Hari Morales M.D. 09/10/2020 D64.9 Anemia, unspecified Hari callejas M.D. 09/10/2020 D64.9 Anemia, unspecified Lab Schedule 09/10/2020 K21.9 Gastro-esophageal reflux disease without esophagitis Hari Morales M.D. 09/10/2020 K21.9 Gastro-esophageal reflux disease without esophagitis Lab Schedule 09/10/2020 E78.00 Pure hypercholesterolemia, unspe cified Hari Morales M.D. 09/10/2020 E78.00 Pure hypercholesterolemia, unspe cified Lab Schedule 09/10/2020 E03.9 Hypothyroidism, unspecified Alo Morales M.D. 09/10/2020 E03.9 Hypothyroidism, unspecified Lab Schedule 07/30/2020 R10.13 Epigastric pain Chantal Roca, ANP 07/30/2020 K21.9 Gastro-esophageal reflux disease without esophagitis Chantal Roca, ANP 07/30/2020 F41.9 Anxiety disorder, unspecified Na taryn Roca, ANP 07/30/2020 R06.02 Shortness of breath Chantal aly, ANP 07/30/2020 R10.84 Generalized abdominal pain NACHO Don Plan of Treatment No Information Available Functional Status Description No Information Available Mental Status Description No Information Available Referrals Description No Information Available
--- OUTSIDE RECORDS SUMMARY | 2021-03-21 06:16 | CCD ---
Continuity of Care Document (CCD) Created on: 03/08/2021 Jane Winkler External Reference #: [id number] : [id number] Sex: Female Author Author Jane MORALES M.D. Organization Unknown Address [address] [address] Phone [phone] Care Team Providers Care Fabrication And Layout Craftsman Name Role Phone Hari Morales MD AUTM [phone] Carlota Perea MD AUTM [phone] [facility] AUTM [phone] Problems Active Problems Provider Date Backache Onset: [...] smoker ppd x 25 years quit 1996 Allergies and adverse reactions Active Allergies Criticality Reaction | Severity Comments [...] a half tabs by mouth every day 135taMurray Jones 07/24/2014 Simvastatin 20mg Tablets 1 by mouth [...] CPT Code Status Date Vaccine Lot # [id number] Given 02/09/2020 Influenza Vaccin e Quadrivalent Preser/Antibiotic Free Im Use [id number] 23326 Given 02/10/2019 Influenza Vaccin e Quadrivalent Preser/Antibiotic Free Im Use [id number] 78599 Given 02/18/2018 Influenza Virus Vaccine, Quadrivalent (Cciiv4), Derived From 8 Given 02/19/2017 Influenza Vaccin e Quadrivalent Preser/Antibiotic Free Im Use [id number] Q2037 Given 02/13/2016 Fluvirin Virus Vaccine 96171 01 Q2037 Given 03/05/2015 Fluvirin Virus Vaccine 76085 01 63469 Given 03/07/2014 Influenza Virus Vaccine 47889 Given 08/08/2013 Pneumovax 23 13633 Given 02/14/2013 Influenza Virus Vaccine 79578 Given 03/04/2012 Influenza Virus Vaccine 69184 Given 02/19/2011 Influenza Virus Vaccine 49998 Given 10/02/2010 Zoster Vaccine 51673 Given 04/18/2010 Adacel- Tetanus Diphtheria P ertussis 52850 Given 02/27/2010 Influenza Virus Vaccine 84604 Given 04/10/1999 Hepatitis B Rey Adoles For I ntramuscular Use 67955 Given 04/10/1999 Hepatitis A Vaccine Adult Do moon Vital Signs Date Vital Result Comment 03/08/2021 10:15am BP Systolic 138 mmHg BP Diastolic 78 mmHg Heart Rate 66 /min Height 64 inches 5'4" Weight 189.00 lb BMI (Body Mass Index) 32.4 kg/m2 01/28/2021 11:31am BP Systolic 140 mmHg BP Diastolic 76 mmHg BP Systolic Recheck 125 mmHg BP Diastolic Recheck 70 mmHg Heart Rate 70 /min Height 64 inches 5'4" Weight 188.00 lb BMI (Body Mass Index) 32.3 kg/m2 Results Test Acquired Date Facility Test Result H/L Range Note Complete Blood Count 03/08/2021 [facility] Puzzle Assembler: Dr Kehinde Mckenna [place] [id number] [phone] WBC 4.5 x10*3/UL 4.1 - 10.9 RBC 4.26 x10*6/UL 4.20 - 6.30 Hemoglobin 13.3 g/dL 12.0 - 18.0 Hematocrit 39.2 % 37.0 - 51.0 MCV 92.0 fL 80.0 - 97.0 MCH 31.1 pg 26.0 - 32.0 MCHC 33.8 g/dL 31.0 - 38.0 RDW 13.2 % 11.6 - 13.7 PLT 236 x10*3/UL 140 - 440 MPV 7.0 FL Low 7.8 - 11.0 Lymph % 29.2 % 10.0 - 58.5 Mid % 6.1 % 1.7 - 9.3 Neut % 64.7 % 37.0 - 92.0 Lymph # 1.3 x10*3/UL 0.6 - 4.1 Mid # 0.3 x10*3/UL 0.1 - 0.6 Neut # 2.9 x10*3/UL 2.0 - 7.8 Basic Metabolic Panel 03/08/2021 [facility] Puzzle Assembler: Dr Kehinde [place] [address] [phone] Glucose 88 mg/dL 74 - 99 1 BUN 19 mg/dL High 7 - 18 Creatinine 0.6 mg/dL 0.6 - 1.3 Sodium 139 mEq/L 136 - 145 Potassium 5.1 mEq/L 3.5 - 5.1 Chloride 103 mEq/L 98 - 107 Carbon Dioxide 31 mEq/L 21 - 32 Calcium 9.6 mg/dL 8.5 - 10.1 GFR >= 60 mL/min >60 GFR >= 60 mL/min >60 2 Laboratory test finding 03/08/2021 [facility] parisa gauthier Puzzle Assembler: Dr Kehinde [place]ckenna [place] [id number] [phone] Thyroid Stimulating Hormone 1.49 uIU/mL 0.3 6 - 3.74 Laboratory test finding 03/08/2021 [facility] par[facility] Coombs Puzzle Assembler: Dr Kehinde [place]ckenna [place] [id number] [phone] T4 Free 0.99 ng/dL 0.76 - 1.46 Complete Blood Count 01/25/2021 [facility] Puzzle Assembler: Dr [place]hinde [place], [place] [id number] [phone] WBC 4.0 x10*3/UL Low 4.1 - 10.9 [...] Neut # 2.5 x10*3/UL 2.0 - 7.8 Comprehensive Chem Profile 01/25/2021 [facility], Puzzle Assembler: [place] [address] [phone] Glucose 92 mg/dL 74 - 99 3 BUN 17 mg/dL 7 - 18 Creatinine [...] >60 GFR >= 60 mL/min >60 4 Lipid Profile 01/25/2021 [facility] , Puzzle Assembler: [place] [address] [phone] Cholesterol 226 mg/dL High 131 - 200 Triglycerides 49 mg/dL 30 - 150 HDL Cholesterol 91 mg/dL High 35 - 60 LDL (Calculated) 125 CALC 50 - 159 Laboratory test finding 01/25/2021 [facility] Puzzle Assembler: Dr Kehinde [place] [address] [phone] Thyroid Stimulating Hormone 4.31 uIU/mL High 0.3 6 - 3.74 Complete Blood Count 09/10/2020 [facility] Puzzle Assembler: [place] [address] [phone] WBC 3.9 x10*3/UL Low 4.1 - 10.9 [...] Neut # 2.3 x10*3/UL 2.0 - 7.8 Comprehensive Chem Profile 09/10/2020 [facility] par[facility] pantoja Puzzle Assembler: [place] [address] [phone] Glucose 83 mg/dL 74 - 99 5 BUN 23 mg/dL High 7 - 18 [...] mL/min >60 GFR >= 60 mL/min >60 6 Lipid Profile 09/10/2020 [facility] Puzzle Assembler: [place] [address] [phone] Cholesterol 201 mg/dL High 131 - 200 Triglycerides 46 mg/dL 30 - 150 HDL Cholesterol 95 mg/dL High 35 - 60 LDL (Calculated) 97 CALC 50 - 159 Laboratory test finding 09/10/2020 [facility] Puzzle Assembler: ZEUS Zimmer [id number] [phone] Thyroid Stimulating Hormone 3.10 uIU/mL 0.3 6 - 3.74 Laboratory test finding 09/10/2020 [facility] parisa gauthier Puzzle Assembler: [place] [address] [phone] T4 Free 0.76 ng/dL 0.76 - 1.46 1 100-125 mg/dL PRE-DIABET ES/FASTING >126 mg/dL DIABETES/FASTING 2 CHRONIC KIDNEY DISEASE STAGI NG PER NKF STAGE I & II GFR >= 60 NORMAL TO MILDLY DECREASED STAGE III GFR 30-59 MODERATELY DECREASED STAGE IV GFR 15-29 SEVERELY DECREASED STAGE V GFR <15 VERY LITTLE GFR LEFT ESRD GFR <15 ON SINGLE CORNER CUTTER 3 100-125 mg/dL PRE-DIABET ES/FASTING >126 mg/dL DIABETES/FASTING 4 CHRONIC KIDNEY DISEASE STAGI NG PER NKF STAGE I & II GFR >= 60 NORMAL TO MILDLY DECREASED STAGE III GFR 30-59 MODERATELY DECREASED STAGE IV GFR 15-29 SEVERELY DECREASED STAGE V GFR <15 VERY LITTLE GFR LEFT ESRD GFR <15 ON SINGLE CORNER CUTTER 5 100-125 mg/dL PRE-DIABET ES/FASTING >126 mg/dL DIABETES/FASTING 6 CHRONIC KIDNEY DISEASE STAGI NG PER NKF STAGE I & II GFR >= 60 NORMAL TO MILDLY DECREASED STAGE III GFR 30-59 MODERATELY DECREASED STAGE IV GFR 15-29 SEVERELY DECREASED STAGE V GFR <15 VERY LITTLE GFR LEFT ESRD GFR <15 ON SINGLE CORNER CUTTER Procedures Date Code Description Status 09/11/2020 14946 Office/Outpatient Established Mo d MDM 30-39 Min Completed 08/20/2019 360077858 Diabetic Retinal Eye Exam Comple parris 08/19/2019 [id number] Diabetic Retinal Eye Exam Comple parris 08/18/2019 839174505 Diabetic Retinal Eye Exam Comple parris 08/16/2019 [id number] Diabetic Retinal Eye Exam Comple [facility] 02/09/2019 [id number] Mammogram Completed 03/26/2017 [id number] Colonoscopy Completed 12/18/2015 [id number] Mammogram Completed 12/18/2011 [id number] Colonoscopy Completed Medical Devices Description No Information Available Encounters Type Date Location Provider Dx Diagnosis Office Visit 09/11/2020 1:30p [facility] Hari Morales M.D. 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 03/08/2021 R32 Unspecified urinary incontinence Hari Morales M.D. 03/08/2021 E03.9 Hypothyroidism, unspecified Alo Morales M.D. 03/08/2021 F41.9 Anxiety disorder, unspecified Wilder Morales M.D. 03/08/2021 E78.00 Pure hypercholesterolemia, unspe cified Hari Morales M.D. 03/08/2021 D64.9 Anemia, unspecified Hari callejas M.D. 03/08/2021 B02.22 Postherpetic trigeminal neuralgi a Hari Morales M.D. 03/08/2021 J44.9 Chronic obstructive pulmonary di sease, unspecified Hari Morales M.D. 01/28/2021 E78.00 Pure hypercholesterolemia, unspe cified Hari Morales M.D. 01/28/2021 E03.9 Hypothyroidism, unspecified Alo Morales M.D. 01/28/2021 F41.9 Anxiety disorder, unspecified Wilder Morales M.D. 01/28/2021 D64.9 Anemia, unspecified Hari callejas M.D. 01/28/2021 B02.22 Postherpetic trigeminal neuralgi a Hari Morales M.D. 01/28/2021 J44.9 Chronic obstructive pulmonary di sease, unspecified Hari Morales M.D. 01/28/2021 R32 Unspecified urinary incontinence Hari Morales M.D. 01/28/2021 H68.003 Unspecified Eustachian salpingit is, bilateral Hari Morales M.D. 01/28/2021 Z86.010 Personal history of colonic poly ps Hari Morales M.D. 01/25/2021 D64.9 Anemia, unspecified Hari callejas M.D. 01/25/2021 D64.9 Anemia, unspecified Lab Schedule 01/25/2021 E78.00 Pure hypercholesterolemia, unspe cified Hari Morales M.D. 01/25/2021 E78.00 Pure hypercholesterolemia, unspe cified Lab Schedule 01/25/2021 E03.9 Hypothyroidism, unspecified Alo Mroales M.D. 01/25/2021 E03.9 Hypothyroidism, unspecified Lab Schedule 09/11/2020 E78.00 Pure hypercholesterolemia, unspe cified Hari Morales M.D. 09/11/2020 E03.9 Hypothyroidism, unspecified Alo Morales M.D. 09/11/2020 F41.9 Anxiety disorder, unspecified Wilder Morales M.D. 09/11/2020 D64.9 Anemia, unspecified Hari callejas M.D. 09/11/2020 B02.22 Postherpetic trigeminal neuralgi a Hari Morales M.D. 09/11/2020 J44.9 Chronic obstructive pulmonary di sease, unspecified Hari Morales M.D. 09/10/2020 D64.9 Anemia, unspecified [...] M.D. 09/10/2020 E03.9 Hypothyroidism, unspecified Lab Schedule Plan of Treatment Future Appointment(s):* 07/29/2021 10:40 am - [facility] * 07/26/2021 9:40 am - Lab Schedule at [facility] * 07/29/2021 11:00 am - Hari Morales M.D. at [facility] 03/08/2021 - Hari Morales M.D.* Z01.818 Encounter for other preprocedural examination * R32 Unspecified urinary incontinence * E03.9 Hypothyroidism, unspecified * F41.9 Anxiety disorder, unspecified * E78.00 Pure hypercholesterolemia, unspecified * D64.9 Anemia, unspecified * B02.22 Postherpetic trigeminal neuralgia * J44.9 Chronic obstructive pulmonary disease, unspecified Functional Status Description No Information Available Mental Status Description No Information Available Referrals Description No Information Available
--- OUTSIDE RECORDS SUMMARY | 2021-03-21 06:16 | CCD | Continuity of Care Document ---
Author Author Lab Schedule, Jane Gao Organization Unknown Address [address] [place] [address] Phone Unavailable Care Team Providers Care Clay Products Glazer Name Role Phone Hari Morales MD AUTM [phone] Carlota Perea MD AUTM [phone] [facility] AUTM [phone] Problems Active Problems Provider Date Backache Onset: [...] M.D. 02/10/2019 Administration Of Flu Vaccine Inj micky Morales M.D. 02/18/2018 Administration Of Flu Vaccine Inj ronion Hari Morales M.D. 02/19/2017 Administration Of Flu Vaccine Inj ornion Hari Morales M.D. 02/13/2016 Administration Of Flu Vaccine Inj ection KVEIN Montes 03/05/2015 Immunizations CPT Code Status Date Vaccine Lot # [id number] Given 02/09/2020 Influenza Vaccin e Quadrivalent Preser/Antibiotic Free Im Use 743121 94602 Given 02/10/2019 Influenza Vaccin e Quadrivalent Preser/Antibiotic Free Im Use 884304 69067 Given 02/18/2018 Influenza Virus Vaccine, Quadrivalent (Cciiv4), Derived From 3 Given 02/19/2017 Influenza Vaccin e Quadrivalent Preser/Antibiotic Free Im Use 118335 Q2037 Given 02/13/2016 Fluvirin Virus Vaccine 62336 01 Q2037 Given 03/05/2015 Fluvirin Virus Vaccine 95116 46852 Given 03/07/2014 Influenza Virus Vaccine 58447 Given 08/08/2013 Pneumovax 23 44851 Given 02/14/2013 Influenza Virus Vaccine 96305 Given 03/04/2012 Influenza Virus Vaccine 11499 Given 02/19/2011 Influenza Virus Vaccine 54750 Given 10/02/2010 Zoster Vaccine 78836 Given 04/18/2010 Adacel- Tetanus Diphtheria P ertussis 76074 Given 02/27/2010 Influenza Virus Vaccine 66332 Given 04/10/1999 Hepatitis B Rey Adoles For I ntramuscular Use 24799 Given 04/10/1999 Hepatitis A Vaccine Adult Do [...] H/L Range Note Comprehensive Chem Profile 01/25/2021 [place] parisa Jones Barrel Assembly Inspector: [place] [address] [phone] Glucose 92 mg/dL 74 - 99 1 [...] 60 mL/min >60 2 Lipid Profile 01/25/2021 [facility] , Barrel Assembly Inspector: Dr Kehinde [place]ckenna [place] [id number] [phone] Cholesterol 226 mg/dL High 131 - 200 Triglycerides 49 mg/dL 30 - 150 HDL Cholesterol 91 mg/dL High 35 - 60 LDL (Calculated) 125 CALC 50 - 159 Laboratory test finding 01/25/2021 [facility] Accounts Receivable Administrator disha, Barrel Assembly Inspector: Dr Kehinde [place]ckenna [place] [id number] [phone] Thyroid Stimulating Hormone 4.31 uIU/mL High 0.3 6 - 3.74 Complete Blood Count 01/25/2021 [facility] Equipment Mechanic s, Barrel Assembly Inspector: Dr Kehinde [place]enna [place] [address] [phone] WBC 4.0 x10*3/UL Low 4.1 - 10.9 [...] 2.0 - 7.8 Laboratory test finding 09/10/2020 [facility] Accounts Receivable Administrator disha Barrel Assembly Inspector: Dr Kehinde [place]enna [place] [id number] [phone] T4 Free 0.76 ng/dL 0.76 - 1.46 Laboratory test finding 09/10/2020 [facility] Receivable Administrator ists, pc Barrel Assembly Inspector: [place] [address] [phone] Thyroid Stimulating Hormone 3.10 uIU/mL 0.3 6 - 3.74 Lipid Profile 09/10/2020 [facility] Barrel Assembly Inspector: Dr Kehinde [place]ck[place] [address] [phone] Cholesterol 201 mg/dL High 131 - 200 Triglycerides 46 mg/dL 30 - 150 HDL Cholesterol 95 mg/dL High 35 - 60 LDL (Calculated) 97 CALC 50 - 159 Comprehensive Chem Profile 09/10/2020 [facility] Barrel Assembly Inspector: Dr Kehinde [place] [address] [phone] Glucose 83 mg/dL 74 - 99 3 [...] mL/min >60 4 Complete Blood Count 09/10/2020 [facility] [employer] [facility] [facility] Barrel Assembly Inspector: Dr Kehinde [place] [address] [phone] WBC 3.9 x10*3/UL Low 4.1 - 10.9 [...] 2.0 - 7.8 Istat Chem8+ Panel 07/30/2020 [facility] nter [address] [place] [id number] [phone] iSTAT HCT 41.0 % Normal 38.0-51.0 iSTAT Glucose 69 mg/dL Low 70-105 iSTAT Sodium 139 mEq/L Normal 136-145 iSTAT Potassium 4.1 mEq/L Normal 3.5-5.1 iSTAT CA++ 5.4 mg/dL High 4.5-5.3 iSTAT Chloride 101 mEq/L Normal 98-109 iSTAT Co2 31.0 MM/L High 23.0-27.0 iSTAT BUN 17 mg/dL Normal 8-26 iSTAT Creatinine 0.7 mg/dL Normal 0.6-1.3 Laboratory test finding 07/30/2020 [facility] [address] [place] [address] [id number] [phone] iSTAT Lactate 0.49 Normal 0.4-2.0 CBC With Differential 07/30/[address] [address] [phone] White Blood Count 5.8 10 Normal 4.0-10.0 [...] 36.0-66.0 Lymph % 26.8 % Normal 24.0-44.0 [place] % 8.1 % High 2.0-8.0 Eos % 3.9 % High 0.0-3.0 Baso % 1.0 % Normal 0.0-1.0 Immature Granulocyte % 0.3 % Normal 0-3.0 Nucleated Red Blood Cell % 0.0 % Normal 0-0 Neutrophils # 3.5 10 Normal 1.5-8.5 Lymph # 1.6 10 Normal 1.5-5.0 [place] # 0.5 10 Normal 0.0-0.8 Eos # 0.2 10 Normal 0.0-0.5 Baso # 0.1 10 Normal 0.0-0.2 Laboratory test finding 07/30/2020 [facility] [address] [place], [place] [id number] [phone] Lipase 93 U/L Normal 73-393 H Pylori Qualitative Igg NEGATIVE Normal Negative 5 Complete Blood Count 07/30/2020 [facility] [employer] [facility] Barrel Assembly Inspector: [place] [address] [phone] WBC 4.9 x10*3/UL 4.1 - 10.9 RBC [...] 2.0 - 7.8 Comprehensive Chem Profile 07/30/2020 [place] Camille erndisha, parisa Barrel Assembly Inspector: [place] [address] [phone] Glucose 80 mg/dL 74 - 99 6 [...] mL/min >60 7 Ua Dipstick Only 07/30/2020 [facility] , parisa Barrel Assembly Inspector: [place] [address] [phone] Urine Color YELLOW Yellow Urine Appearance CLEAR Clear Urine PH 6.5 units 5.0 - 9.0 Urine Specific [place] 1.015 1.005 - 1.030 Urine Leukocytes NEGATIVE [...] LITTLE GFR LEFT ESRD GFR <15 ON INCOME TAX ADMINISTRATOR 3 100-125 mg/dL PRE-DIABET ES/FASTING >126 mg/dL DIABETES/FASTING 4 CHRONIC KIDNEY DISEASE STAGI NG PER NKF STAGE I & II GFR >= 60 NORMAL TO MILDLY DECREASED STAGE III GFR 30-59 MODERATELY DECREASED STAGE IV GFR 15-29 SEVERELY DECREASED STAGE V GFR <15 VERY LITTLE GFR LEFT ESRD GFR <15 ON INCOME TAX ADMINISTRATOR 5 SERUM SAMPLES OBTAINED TOO E JACQUELINE [...] LITTLE GFR LEFT ESRD GFR <15 ON INCOME TAX ADMINISTRATOR Procedures Date Code Description Status 09/11/2020 81035 Office/Outpatient Established Mo d MDM 30-39 Min Completed 07/30/2020 90573 Office/Outpatient Established Lo w MDM 20-29 Min Completed 07/30/2020 71110 EKG/Interpretation & Report Comp leted 08/20/2019 [id number] Diabetic Retinal Eye Exam Comple parris 08/19/2019 [id number] Diabetic Retinal Eye Exam Comple parris 08/18/2019 914596485 Diabetic Retinal Eye Exam Comple parris 08/16/2019 066985029 Diabetic Retinal Eye Exam Comple parris 02/09/2019 89832923 Mammogram Completed 03/26/2017 [id number] Colonoscopy Completed 12/18/2015 [id number] Mammogram Completed 12/18/2011 [id number] Colonoscopy Completed Medical Devices Description No Information Available Encounters Type Date Location Provider Dx Diagnosis Office Visit 09/11/2020 1:30p [facility] Hari Morales M.D. 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 Chantal Roca, ANP R10.13 Epigastric pain K21.9 Gastro-esophageal reflux dis ease without esophagitis F41.9 Anxiety disorder, unspecifie d R06.02 Shortness of breath R10.84 Generalized abdominal pain Assessments Date Code Description Provider 01/28/2021 E78.00 Pure hypercholesterolemia, unspe cified Hari [...] Lab Schedule 01/25/2021 E03.9 Hypothyroidism, unspecified Alo Morales M.D. 01/25/2021 E03.9 Hypothyroidism, unspecified Lab Schedule [...] aly, ANP 07/30/2020 R10.84 Generalized abdominal pain Chantal Roca, ANP Plan of Treatment Future Appointment(s):* 07/26/2021 9:40 am - Lab Schedule at [facility] * 07/29/2021 11:00 am - Hari Morales M.D. at [facility] 01/28/2021 - Hari Morales M.D.* E78.00 Pure hypercholesterolemia, unspecified * E03.9 Hypothyroidism, unspecified * F41.9 Anxiety disorder, unspecified * D64.9 Anemia, unspecified * B02.22 Postherpetic trigeminal neuralgia * J44.9 Chronic obstructive pulmonary disease, unspecified * R32 Unspecified urinary incontinence * H68.003 Unspecified Eustachian salpingitis, bilateral * Z86.010 Personal history of colonic polyps * * Comments:* 1. Hypercholesterolemia: Slightly increased cholesterol and LDL, although HDL remains protective. She will continue with positive lifestyle changes along with her simvastatin daily. We will continue to monitor.2. Hypothyroidism: Slightly increased TSH level, on replacement daily. She feels well. We discussed about this and will monitor her on present dose.3. Anxiety disorder: She appears to be doing well with increased dose of sertraline at 150 mg daily. She is no longer having crying episode and was in significant grief when her friend, Neris, . She has no thoughts of hurting self or others. We will continue to monitor.4. Anemia: 5. Postherpetic trigeminal neuralgia: Generally doing well with the use of Neurontin. She has received Shingrix shot. We will continue to monitor.6. Chronic obstructive pulmonary disease: Doing well on current regimen, will continue and monitor. 7. Urinary incontinence: 8. Eustachian salpingitis, bilateral: We discussed about using Flonase Sensimist and gargling with warm salt water to clear the phlegm from the back of her throat. She will let us know if her symptoms are not improved.9. Personal history of colonic polyps: Presence of tubular adenomatous polyp on last colonoscopy that was done in 03/[address] Roby Hunt and patient will need a colonoscopy in 2021. She will follow up appropriately. Ongoing cares: I am going to see her again in months with . If she has new problems or issues sooner she will let us know.will see me for preop before interstim for urinary incomtenence. THen at 6 months with CMP, lipids, CBC, TSH and FT4. Functional Status Description No Information Available Mental Status Description No Information Available Referrals Description No Information Available
--- OUTSIDE RECORDS SUMMARY | 2021-03-21 06:16 | CCD | Continuity of Care Document ---
Author Author Jane MORALES M.D. Organization Unknown Address [address] [address] Phone [phone] Care Team Providers Care Electronics Technician Apprentice Name Role Phone Hari Morales MD AUTM [phone] Carlota Perea MD AUTM [phone] [facility] AUTM [phone] Problems Active Problems Provider Date Backache Onset: [...] CPT Code Status Date Vaccine Lot # 18712 Given 02/09/2020 Influenza Vaccin e Quadrivalent Preser/Antibiotic Free Im Use [id number] 98511 Given 02/10/2019 Influenza Vaccin e Quadrivalent Preser/Antibiotic Free Im Use [id number] 26557 Given 02/18/2018 Influenza Virus Vaccine, Quadrivalent (Cciiv4), Derived From 4 Given 02/19/2017 Influenza Vaccin e Quadrivalent Preser/Antibiotic Free Im Use 228407 Q2037 Given 02/13/2016 Fluvirin Virus Vaccine 70965 01 Q2037 Given 03/05/2015 Fluvirin Virus Vaccine 59377 01 86298 Given 03/07/2014 Influenza Virus Vaccine 29846 Given 08/08/2013 Pneumovax 23 87447 Given 02/14/2013 Influenza Virus Vaccine 14988 Given 03/04/2012 Influenza Virus Vaccine 01409 Given 02/19/2011 Influenza Virus Vaccine 77267 Given 10/02/2010 Zoster Vaccine 90753 Given 04/18/2010 Adacel- Tetanus Diphtheria P ertussis 04621 Given 02/27/2010 Influenza Virus Vaccine 26158 Given 04/10/1999 Hepatitis B Rey Adoles For I ntramuscular Use 98305 Given 04/10/1999 Hepatitis A Vaccine Adult Do [...] H/L Range Note Complete Blood Count 03/08/2021 [facility] Saturation Equipment Operator: Dr Kehinde Mckenna [place] [id number] [phone] WBC 4.5 x10*3/UL 4.1 - 10.9 RBC [...] 2.0 - 7.8 Basic Metabolic Panel 03/08/2021 [facility] Saturation Equipment Operator: Dr Kehinde [place] [address] [phone] Glucose 88 mg/dL 74 - 99 1 [...] mL/min >60 2 Laboratory test finding 03/08/[address] [facility] [address] [facility] par[facility] gauthier Saturation Equipment Operator: Dr Kehinde [place]ckenna [place] [id number] [phone] Thyroid Stimulating Hormone 1.49 uIU/mL 0.3 6 - 3.74 Laboratory test finding 03/08/2021 [facility] Coombs Saturation Equipment Operator: Dr Kehinde [place]ckenna [place] [id number] [phone] T4 Free 0.99 ng/dL 0.76 - 1.46 Complete Blood Count 01/25/2021 [facility] Saturation Equipment Operator: Dr Kehinde [place], [place] [id number] [phone] WBC 4.0 x10*3/UL Low 4.1 - 10.9 [...] 2.0 - 7.8 Comprehensive Chem Profile 01/25/2021 [facility], Saturation Equipment Operator: [place] [address] [phone] Glucose 92 mg/dL 74 - 99 3 [...] 60 mL/min >60 4 Lipid Profile 01/25/2021 [facility] , Saturation Equipment Operator: [place] [address] [phone] Cholesterol 226 mg/dL High 131 - 200 Triglycerides 49 mg/dL 30 - 150 HDL Cholesterol 91 mg/dL High 35 - 60 LDL (Calculated) 125 CALC 50 - 159 Laboratory test finding 01/25/[address] [facility] Saturation Equipment Operator: Dr Kehinde [place] [address] [phone] Thyroid Stimulating Hormone 4.31 uIU/mL High 0.3 6 - 3.74 Complete Blood Count 09/10/2020 [facility] Saturation Equipment Operator: [place] [address] [phone] WBC 3.9 x10*3/UL Low 4.1 - 10.9 [...] 2.0 - 7.8 Comprehensive Chem Profile 09/10/2020 [facility] pantoja Saturation Equipment Operator: [place] [address] [phone] Glucose 83 mg/dL 74 - 99 5 [...] 60 mL/min >60 6 Lipid Profile 09/10/2020 [facility] Saturation Equipment Operator: [place] [address] [phone] Cholesterol 201 mg/dL High 131 - 200 Triglycerides 46 mg/dL 30 - 150 HDL Cholesterol 95 mg/dL High 35 - 60 LDL (Calculated) 97 CALC 50 - 159 Laboratory test finding 09/10/2020 [facility] Saturation Equipment Operator: ZEUS Zimmer [id number] [phone] Thyroid Stimulating Hormone 3.10 uIU/mL 0.3 6 - 3.74 Laboratory test finding 09/10/[address] [facility] [address] [facility] parisa gauthier Saturation Equipment Operator: [place] [address] [phone] T4 Free 0.76 ng/dL 0.76 - 1.46 1 100-125 mg/dL PRE-DIABET ES/FASTING >126 mg/dL DIABETES/FASTING 2 CHRONIC KIDNEY DISEASE STAGI NG PER NKF STAGE I & II GFR >= 60 NORMAL TO MILDLY DECREASED STAGE III GFR 30-59 MODERATELY DECREASED STAGE IV GFR 15-29 SEVERELY DECREASED STAGE V GFR <15 VERY LITTLE GFR LEFT ESRD GFR <15 ON CENTRAL AISLE CASHIER 3 100-125 mg/dL PRE-DIABET ES/FASTING >126 mg/dL DIABETES/FASTING 4 CHRONIC KIDNEY DISEASE STAGI NG PER NKF STAGE I & II GFR >= 60 NORMAL TO MILDLY DECREASED STAGE III GFR 30-59 MODERATELY DECREASED STAGE IV GFR 15-29 SEVERELY DECREASED STAGE V GFR <15 VERY LITTLE GFR LEFT ESRD GFR <15 ON CENTRAL AISLE CASHIER 5 100-125 mg/dL PRE-DIABET ES/FASTING >126 mg/dL DIABETES/FASTING 6 CHRONIC KIDNEY DISEASE STAGI NG PER NKF STAGE I & II GFR >= 60 NORMAL TO MILDLY DECREASED STAGE III GFR 30-59 MODERATELY DECREASED STAGE IV GFR 15-29 SEVERELY DECREASED STAGE V GFR <15 VERY LITTLE GFR LEFT ESRD GFR <15 ON CENTRAL AISLE CASHIER Procedures Date Code Description Status 09/11/2020 72640 Office/Outpatient Established Mo d MDM 30-39 Min Completed 08/20/2019 [id number] Diabetic Retinal Eye Exam Comple [facility] 08/19/2019 [id number] Diabetic Retinal Eye Exam Comple [facility] 08/18/2019 [id number] Diabetic Retinal Eye Exam Comple parris 08/16/2019 [id number] Diabetic Retinal Eye Exam Comple [facility] 02/09/2019 [id number] Mammogram Completed 03/26/2017 [id number] Colonoscopy Completed 12/18/2015 [id number] Mammogram Completed 12/18/2011 [id number] Colonoscopy Completed Medical Devices Description No Information Available Encounters Type Date Location Provider Dx Diagnosis Office Visit 09/11/2020 1:30p [facility] Hari Morales M.D. E78.00 Pure [...] 07/29/2021 10:40 am - [facility] [place] * 07/26/2021 9:40 am - [facility] [place] * 07/29/2021 11:00 am - Hari Morales M.D. at [facility] 03/08/2021 - Hari Morales M.D.* [...]
--- OUTSIDE RECORDS SUMMARY | 2021-03-21 06:16 | CCD | Continuity of Care Document ---
Author Author Lab Schedule, Jane Gao Organization Unknown Address [address] [place] [address] Phone Unavailable Care Team Providers Care Fund Accounting Manager Name Role Phone Hari Morales MD AUTM [phone] Carlota Perea MD AUTM [phone] [facility] AUTM [phone] Problems Active Problems Provider Date Backache Onset: [...] CPT Code Status Date Vaccine Lot # 22537 Given 02/09/2020 Influenza Vaccin e Quadrivalent Preser/Antibiotic Free Im Use 071814 44521 Given 02/10/2019 Influenza Vaccin e Quadrivalent Preser/Antibiotic Free Im Use 986246 03618 Given 02/18/2018 Influenza Virus Vaccine, Quadrivalent (Cciiv4), Derived From 6 Given 02/19/2017 Influenza Vaccin e Quadrivalent Preser/Antibiotic Free Im Use 701703 Q2037 Given 02/13/2016 Fluvirin Virus Vaccine 30863 01 Q2037 Given 03/05/2015 Fluvirin Virus Vaccine 22889 94289 Given 03/07/2014 Influenza Virus Vaccine 16061 Given 08/08/2013 Pneumovax 23 25803 Given 02/14/2013 Influenza Virus Vaccine 25851 Given 03/04/2012 Influenza Virus Vaccine 93765 Given 02/19/2011 Influenza Virus Vaccine 05548 Given 10/02/2010 Zoster Vaccine 11535 Given 04/18/2010 Adacel- Tetanus Diphtheria P ertussis 32543 Given 02/27/2010 Influenza Virus Vaccine 55866 Given 04/10/1999 Hepatitis B Rey Adoles For I ntramuscular Use 90604 Given 04/10/1999 Hepatitis A Vaccine Adult Do moon Vital Signs Date Vital Result Comment 09/11/2020 1:36pm BP Systolic 140 mmHg BP Diastolic 76 mmHg Heart Rate 68 /min Height 64 inches 5'4" Weight 191.00 lb BMI (Body Mass Index) 32.8 kg/m2 07/30/2020 11:42am BP Systolic 136 mmHg BP Diastolic 74 mmHg Heart Rate 80 /min Height 64 inches 5'4" Weight 180.00 lb O2 % BldC Oximetry 97 % BMI (Body Mass Index) 30.9 kg/m2 Results Test Acquired Date Facility Test Result H/L Range Note Comprehensive Chem Profile 01/25/2021 [facility] Crystal Slicer: [place] [address] [phone] Glucose 92 mg/dL 74 - 99 1 [...] 60 mL/min >60 2 Lipid Profile 01/25/2021 [facility] , Crystal Slicer: Dr Kehinde Mckenna [place] [id number] [phone] Cholesterol 226 mg/dL High 131 - 200 Triglycerides 49 mg/dL 30 - 150 HDL Cholesterol 91 mg/dL High 35 - 60 LDL (Calculated) 125 CALC 50 - 159 Laboratory test finding 01/25/2021 [facility], Crystal Slicer: Dr Kehinde [place] [address] [phone] Thyroid Stimulating Hormone 4.31 uIU/mL High 0.3 6 - 3.74 Complete Blood Count 01/25/2021 [facility] Crystal Slicer: Dr Kehinde Mckenna [place] [id number] [phone] WBC 4.0 x10*3/UL Low 4.1 - 10.9 [...] 2.0 - 7.8 Laboratory test finding 09/10/2020 [facility], Crystal Slicer: Dr Kehinde [place] [address] [phone] T4 Free 0.76 ng/dL 0.76 - 1.46 Laboratory test finding 09/10/2020 [facility] Crystal Slicer: [place] [address] [phone] Thyroid Stimulating Hormone 3.10 uIU/mL 0.3 6 - 3.74 Lipid Profile 09/10/2020 [facility] Crystal Slicer: [place] [address] [phone] Cholesterol 201 mg/dL High 131 - 200 Triglycerides 46 mg/dL 30 - 150 HDL Cholesterol 95 mg/dL High 35 - 60 LDL (Calculated) 97 CALC 50 - 159 Comprehensive Chem Profile 09/10/2020 [facility] Crystal Slicer: [place] [address] [phone] Glucose 83 mg/dL 74 - 99 3 [...] mL/min >60 4 Complete Blood Count 09/10/2020 [facility] Crystal Slicer: [place] [address] [phone] WBC 3.9 x10*3/UL Low 4.1 - 10.9 [...] 2.0 - 7.8 Istat Chem8+ Panel 07/30/2020 [facility] [place] nter [address] [place] [address] [phone] iSTAT HCT 41.0 % Normal 38.0-51.0 iSTAT Glucose 69 mg/dL Low 70-105 iSTAT Sodium 139 mEq/L Normal 136-145 iSTAT Potassium 4.1 mEq/L Normal 3.5-5.1 iSTAT CA++ 5.4 mg/dL High 4.5-5.3 iSTAT Chloride 101 mEq/L Normal 98-109 iSTAT Co2 31.0 MM/L High 23.0-27.0 iSTAT BUN 17 mg/dL Normal 8-26 iSTAT Creatinine 0.7 mg/dL Normal 0.6-1.3 Laboratory test finding 07/30/2020 [facility] [address] [place] [address] [phone] iSTAT Lactate 0.49 Normal 0.4-2.0 CBC With Differential 07/30/[address] [address] [phone] White Blood Count 5.8 10 Normal 4.0-10.0 [...] 36.0-66.0 Lymph % 26.8 % Normal 24.0-44.0 Stewart % 8.1 % High 2.0-8.0 Eos % 3.9 % High 0.0-3.0 Baso % 1.0 % Normal 0.0-1.0 Immature Granulocyte % 0.3 % Normal 0-3.0 Nucleated Red Blood Cell % 0.0 % Normal 0-0 Neutrophils # 3.5 10 Normal 1.5-8.5 Lymph # 1.6 10 Normal 1.5-5.0 Stewart # 0.5 10 Normal 0.0-0.8 Eos # 0.2 10 Normal 0.0-0.5 Baso # 0.1 10 Normal 0.0-0.2 Laboratory test finding 07/30/2020 [facility] [address] [place], [place] 509[address] [phone] Lipase 93 U/L Normal 73-393 H Pylori Qualitative Igg NEGATIVE Normal Negative 5 Complete Blood Count 07/30/2020 [facility] Crystal Slicer: [place] [address] [phone] WBC 4.9 x10*3/UL 4.1 - 10.9 RBC [...] 2.0 - 7.8 Comprehensive Chem Profile 07/30/2020 [facility] Crystal Slicer: [place] [address] [phone] Glucose 80 mg/dL 74 - 99 6 [...] mL/min >60 7 Ua Dipstick Only 07/30/2020 [facility] Crystal Slicer: [place] [address] [phone] Urine Color YELLOW Yellow Urine Appearance CLEAR Clear Urine PH 6.5 units 5.0 - 9.0 Urine Specific [place] 1.015 1.005 - 1.030 Urine Leukocytes NEGATIVE [...] LITTLE GFR LEFT ESRD GFR <15 ON PERSONNEL RECRUITER 3 100-125 mg/dL PRE-DIABET ES/FASTING >126 mg/dL DIABETES/FASTING 4 CHRONIC KIDNEY DISEASE STAGI NG PER NKF STAGE I & II GFR >= 60 NORMAL TO MILDLY DECREASED STAGE III GFR 30-59 MODERATELY DECREASED STAGE IV GFR 15-29 SEVERELY DECREASED STAGE V GFR <15 VERY LITTLE GFR LEFT ESRD GFR <15 ON PERSONNEL RECRUITER 5 SERUM SAMPLES OBTAINED TOO E JACQUELINE [...] LITTLE GFR LEFT ESRD GFR <15 ON PERSONNEL RECRUITER Procedures Date Code Description Status 09/11/2020 03303 Office/Outpatient Established Mo d MDM 30-39 Min Completed 07/30/2020 08460 Office/Outpatient Established Lo w MDM 20-29 Min Completed 07/30/2020 81294 EKG/Interpretation & Report Comp leted 08/20/2019 [id number] Diabetic Retinal Eye Exam Comple parris 08/19/2019 [id number] Diabetic Retinal Eye Exam Comple parris 08/18/2019 [id number] Diabetic Retinal Eye Exam Comple parris 08/16/2019 [id number] Diabetic Retinal Eye Exam Comple [facility] 02/09/2019 [id number] Mammogram Completed 03/26/2017 [id number] Colonoscopy Completed 12/18/2015 [id number] Mammogram Completed 12/18/2011 [id number] Colonoscopy Completed Medical Devices Description No Information Available Encounters Type Date Location Provider Dx Diagnosis Office Visit 09/11/2020 1:30p [facility] Hari Morales M.D. E78.00 Pure [...] Schedule 07/30/2020 R10.13 Epigastric pain Chantal Roca, NACHO 07/30/2020 K21.9 Gastro-esophageal reflux disease without esophagitis Chantal Roca, NACHO 07/30/2020 F41.9 Anxiety disorder, unspecified Na taryn Roca, NACHO 07/30/2020 R06.02 Shortness of breath Chantal aly, NACHO 07/30/2020 R10.84 Generalized abdominal pain NACHO Don Plan of Treatment Future Appointment(s):* 01/28/2021 11:30 am - Hari Morales M.D. at [facility]. 09/11/2020 - Hari Morales M.D.* E78.00 Pure hypercholesterolemia, unspecified * E03.9 Hypothyroidism, unspecified * F41.9 Anxiety disorder, unspecified * D64.9 Anemia, unspecified * B02.22 Postherpetic trigeminal neuralgia * J44.9 Chronic obstructive pulmonary disease, unspecified * * Comments:* 1. Hypercholesterolemia: Slightly increased cholesterol, although Favorable HDL and LDL is less than 100. She will continue with positive lifestyle changes along with her Simvastatin. We will continue to monitor.2. Hypothyroidism: Normal TSH, on replacement, will continue and monitor. 3. Anxiety disorder: Although anxiety is okay, significant grief with tears daily after her friend Neris passed. Will increase Sertraline to 150 mg and we discussed the situation. Will let me know how she is in 2 weeks (no thoughts of hurting self or others).4. Anemia: Improved blood counts with no evidence of bleeding. We will continue to monitor CBC in follow up.5. Postherpetic trigeminal neuralgia: Good results with the use of Neurontin. She will receive Shingrix shot this year appropriately.6. Chronic obstructive pulmonary disease: Doing well on current regimen, will continue and monitor.7. GERD: Good results with Pepcid daily, will continue and monitor.8. Urinary incontinence: Doing well. She will continue to follow up with Dr. Perea.9. Eustachian tube dysfunction: Education was done. She w ill let me know if her symptoms worsen.10. Heberden's nodes: Education was done. Appears to be symptoms of osteoarthritis. She will let me know if her symptoms worsen.Ongoing cares: She will have her next colonoscopy in 2021. I am going to see her again in 4 months with CMP, lipids TSH and CBC. If she has new problems or issues sooner she will let us know. Functional Status Description No Information Available Mental Status Description No Information Available Referrals Description No Information Available
--- OUTSIDE RECORDS SUMMARY | 2021-03-21 06:16 | CCD | Continuity of Care Document ---
Author Author Jane MORALES M.D. Organization Unknown Address [address] [address] Phone [phone] Care Team Providers Care Fractionation Plant Supervisor Name Role Phone Hari Morales MD AUTM [phone] Carlota Perea MD AUTM [phone] [facility] AUTM [phone] Problems Active Problems Provider Date Backache Onset: [...] 1pill by mouth every day Charlie 90tapaulina Moarles M.D. 11/20/2014 Sertraline HCL 100mg Tablets take [...] CPT Code Status Date Vaccine Lot # 74970 Given 02/09/2020 Influenza Vaccin e Quadrivalent Preser/Antibiotic Free Im Use 043906 39952 Given 02/10/2019 Influenza Vaccin e Quadrivalent Preser/Antibiotic Free Im Use 999333 45237 Given 02/18/2018 Influenza Virus Vaccine, Quadrivalent (Cciiv4), Derived From 8 Given 02/19/2017 Influenza Vaccin e Quadrivalent Preser/Antibiotic Free Im Use 825652 Q2037 Given 02/13/2016 Fluvirin Virus Vaccine 88478 01 Q2037 Given 03/05/2015 Fluvirin Virus Vaccine 86707 01 09075 Given 03/07/2014 Influenza Virus Vaccine 87501 Given 08/08/2013 Pneumovax 23 70877 Given 02/14/2013 Influenza Virus Vaccine 79353 Given 03/04/2012 Influenza Virus Vaccine 98504 Given 02/19/2011 Influenza Virus Vaccine 33493 Given 10/02/2010 Zoster Vaccine 22179 Given 04/18/2010 Adacel- Tetanus Diphtheria P ertussis 48573 Given 02/27/2010 Influenza Virus Vaccine 78743 Given 04/10/1999 Hepatitis B Rey Adoles For I ntramuscular Use 90730 Given 04/10/1999 Hepatitis A Vaccine Adult Do [...] H/L Range Note Complete Blood Count 03/08/2021 [facility] Swedger: Dr Kehinde Mckenna [place] [id number] [phone] WBC 4.5 x10*3/UL 4.1 - 10.9 RBC [...] 2.0 - 7.8 Basic Metabolic Panel 03/08/2021 [facility] Swedger: Dr Kehinde [place] [address] [phone] Glucose 88 mg/dL 74 - 99 1 [...] mL/min >60 2 Laboratory test finding 03/08/2021 [facility] gauthier Swedger: Dr Kehinde [place]ckenna [place] [id number] [phone] Thyroid Stimulating Hormone 1.49 uIU/mL 0.3 6 - 3.74 Laboratory test finding 03/08/2021 [facility] Coombs Swedger: Dr Kehinde [place]enna [place], [place] [address]14[address] [phone] T4 Free 0.99 ng/dL 0.76 - 1.46 Complete Blood Count 01/25/2021 [facility] Swedger: Dr [place]e [place], [place] 3966217 [phone] WBC 4.0 x10*3/UL Low 4.1 - 10.9 [...] 2.0 - 7.8 Comprehensive Chem Profile 01/25/2021 [facility], Swedger: [place] [address] [phone] Glucose 92 mg/dL 74 - 99 3 [...] 60 mL/min >60 4 Lipid Profile 01/25/2021 [facility] Swedger: [place] [address] [phone] Cholesterol 226 mg/dL High 131 - 200 Triglycerides 49 mg/dL 30 - 150 HDL Cholesterol 91 mg/dL High 35 - 60 LDL (Calculated) 125 CALC 50 - 159 Laboratory test finding 01/25/2021 [facility] Swedger: Dr Kehinde [place] [address] [phone] Thyroid Stimulating Hormone 4.31 uIU/mL High 0.3 6 - 3.74 Complete Blood Count 09/10/2020 [facility] Swedger: [place] [address] [phone] WBC 3.9 x10*3/UL Low 4.1 - 10.9 [...] 2.0 - 7.8 Comprehensive Chem Profile 09/10/2020 [facility] Swedger: [place] [address] [phone] Glucose 83 mg/dL 74 - 99 5 [...] 60 mL/min >60 6 Lipid Profile 09/10/2020 [facility] Swedger: [place] [address] [phone] Cholesterol 201 mg/dL High 131 - 200 Triglycerides 46 mg/dL 30 - 150 HDL Cholesterol 95 mg/dL High 35 - 60 LDL (Calculated) 97 CALC 50 - 159 Laboratory test finding 09/10/2020 [facility] Swedger: ZEUS Zimmer [id number] [phone] Thyroid Stimulating Hormone 3.10 uIU/mL 0.3 6 - 3.74 Laboratory test finding 09/10/2020 [facility] parisa gauthier Swedger: [place] [address] [phone] T4 Free 0.76 ng/dL 0.76 - 1.46 1 100-125 mg/dL PRE-DIABET ES/FASTING >126 mg/dL DIABETES/FASTING 2 CHRONIC KIDNEY DISEASE STAGI NG PER NKF STAGE I & II GFR >= 60 NORMAL TO MILDLY DECREASED STAGE III GFR 30-59 MODERATELY DECREASED STAGE IV GFR 15-29 SEVERELY DECREASED STAGE V GFR <15 VERY LITTLE GFR LEFT ESRD GFR <15 ON LOGGING TRACTOR OPERATOR 3 100-125 mg/dL PRE-DIABET ES/FASTING >126 mg/dL DIABETES/FASTING 4 CHRONIC KIDNEY DISEASE STAGI NG PER NKF STAGE I & II GFR >= 60 NORMAL TO MILDLY DECREASED STAGE III GFR 30-59 MODERATELY DECREASED STAGE IV GFR 15-29 SEVERELY DECREASED STAGE V GFR <15 VERY LITTLE GFR LEFT ESRD GFR <15 ON LOGGING TRACTOR OPERATOR 5 100-125 mg/dL PRE-DIABET ES/FASTING >126 mg/dL DIABETES/FASTING 6 CHRONIC KIDNEY DISEASE STAGI NG PER NKF STAGE I & II GFR >= 60 NORMAL TO MILDLY DECREASED STAGE III GFR 30-59 MODERATELY DECREASED STAGE IV GFR 15-29 SEVERELY DECREASED STAGE V GFR <15 VERY LITTLE GFR LEFT ESRD GFR <15 ON LOGGING TRACTOR OPERATOR Procedures Date Code Description Status 09/11/2020 07016 Office/Outpatient Established Mo d MDM 30-39 Min Completed 08/20/2019 [id number] Diabetic Retinal Eye Exam Comple [facility]ris 08/19/2019 [id number] Diabetic Retinal Eye Exam Comple [facility] 08/18/2019 [id number] Diabetic Retinal Eye Exam Comple [facility] 08/16/2019 [id number] Diabetic Retinal Eye Exam Comple [facility] 02/09/2019 [id number] Mammogram Completed 03/26/2017 [id number] Colonoscopy Completed 12/18/2015 [id number] Mammogram Completed 12/18/2011 [id number] Colonoscopy Completed Medical Devices Description No Information Available Encounters Type Date Location Provider Dx Diagnosis Office Visit 09/11/2020 1:30p [facility] Hari Morales M.D. E78.00 Pure [...] 07/29/2021 10:40 am - [facility] * 07/26/2021 9:40 am - [facility] * 07/29/2021 11:00 am - Hari Morales M.D. at [facility] 03/08/2021 - Hari Morales M.D.* [...]
--- OUTSIDE RECORDS SUMMARY | 2021-03-21 06:16 | CCD | Continuity of Care Document ---
Author Author Jane MORALES M.D. Organization Unknown Address [address] [address] Phone [phone] Care Team Providers Care Geophysical Support Specialist Name Role Phone Hari Morales MD [facility] [phone] Carlota Perea MD [facility] [phone] [facility] [phone] Problems Active Problems Provider Date Backache Onset: [...] CPT Code Status Date Vaccine Lot # [id number] Given 02/09/2020 Influenza Vaccin e Quadrivalent Preser/Antibiotic Free Im Use [id number] 06558 Given 02/10/2019 Influenza Vaccin e Quadrivalent Preser/Antibiotic Free Im Use 820400 76219 Given 02/18/2018 Influenza Virus Vaccine, Quadrivalent ([id number]), Derived From 3 Given 02/19/2017 Influenza Vaccin e Quadrivalent Preser/Antibiotic Free Im Use [id number] Q2037 Given 02/13/2016 Fluvirin Virus Vaccine 49923 01 Q2037 Given 03/05/2015 Fluvirin Virus Vaccine 49248 01 51407 Given 03/07/2014 Influenza Virus Vaccine 54198 Given 08/08/2013 Pneumovax 23 58992 Given 02/14/2013 Influenza Virus Vaccine 27830 Given 03/04/2012 Influenza Virus Vaccine 85745 Given 02/19/2011 Influenza Virus Vaccine 19973 Given 10/02/2010 Zoster Vaccine 41337 Given 04/18/2010 Adacel- Tetanus Diphtheria P ertussis 64034 Given 02/27/2010 Influenza Virus Vaccine 55725 Given 04/10/1999 Hepatitis B Rey Adoles For I ntramuscular Use 80536 Given 04/10/1999 Hepatitis A Vaccine Adult Do [...] H/L Range Note Complete Blood Count 03/08/2021 [facility] Cattle Inspector: Dr Kehinde Mckenna [place] [id number] [phone] WBC 4.5 x10*3/UL 4.1 - 10.9 RBC [...] 2.0 - 7.8 Basic Metabolic Panel 03/08/2021 [facility] Cattle Inspector: [place] [address] [phone] Glucose 88 mg/dL 74 - 99 1 [...] mL/min >60 2 Laboratory test finding 03/08/2021 [facility] gauthier Cattle Inspector: Dr Kehinde [place]ckenna [place] [id number] [phone] Thyroid Stimulating Hormone 1.49 uIU/mL 0.3 6 - 3.74 Laboratory test finding 03/08/2021 [facility] Coom[facility] Cattle Inspector: Dr Kehinde Mckenna [place], [place] [id number] [phone] T4 Free 0.99 ng/dL 0.76 - 1.46 Complete Blood Count 01/25/2021 [facility] Cattle Inspector: Dr [place]e [place], [place] [id number] [phone] WBC 4.0 x10*3/UL Low 4.1 - 10.9 [...] 2.0 - 7.8 Comprehensive Chem Profile 01/25/2021 [facility] Cattle Inspector: [place] [address] [phone] Glucose 92 mg/dL 74 - 99 3 [...] 60 mL/min >60 4 Lipid Profile 01/25/2021 [facility] Cattle Inspector: [place] [address] [phone] Cholesterol 226 mg/dL High 131 - 200 Triglycerides 49 mg/dL 30 - 150 HDL Cholesterol 91 mg/dL High 35 - 60 LDL (Calculated) 125 CALC 50 - 159 Laboratory test finding 01/25/2021 [facility] Cattle Inspector: [place] [address] [phone] Thyroid Stimulating Hormone 4.31 uIU/mL High 0.3 6 - 3.74 Complete Blood Count 09/10/2020 [facility] Cattle Inspector: [place] [address] [phone] WBC 3.9 x10*3/UL Low 4.1 - 10.9 [...] 2.0 - 7.8 Comprehensive Chem Profile 09/10/2020 [facility] Cattle Inspector: [place] [address] [phone] Glucose 83 mg/dL 74 - 99 5 [...] 60 mL/min >60 6 Lipid Profile 09/10/2020 [facility] Cattle Inspector: [place] [address] [phone] Cholesterol 201 mg/dL High 131 - 200 Triglycerides 46 mg/dL 30 - 150 HDL Cholesterol 95 mg/dL High 35 - 60 LDL (Calculated) 97 CALC 50 - 159 Laboratory test finding 09/10/2020 [facility] Cattle Inspector: ZEUS Zimmer [id number] [phone] Thyroid Stimulating Hormone 3.10 uIU/mL 0.3 6 - 3.74 Laboratory test finding 09/10/2020 [facility] par[facility] gauthier Cattle Inspector: [place] [address] [phone] T4 Free 0.76 ng/dL 0.76 - 1.46 1 100-125 mg/dL PRE-DIABET ES/FASTING >126 mg/dL DIABETES/FASTING 2 CHRONIC KIDNEY DISEASE STAGI NG PER NKF STAGE I & II GFR >= 60 NORMAL TO MILDLY DECREASED STAGE III GFR 30-59 MODERATELY DECREASED STAGE IV GFR 15-29 SEVERELY DECREASED STAGE V GFR <15 VERY LITTLE GFR LEFT ESRD GFR <15 ON CHIN STRAP SEWER 3 100-125 mg/dL PRE-DIABET ES/FASTING >126 mg/dL DIABETES/FASTING 4 CHRONIC KIDNEY DISEASE STAGI NG PER NKF STAGE I & II GFR >= 60 NORMAL TO MILDLY DECREASED STAGE III GFR 30-59 MODERATELY DECREASED STAGE IV GFR 15-29 SEVERELY DECREASED STAGE V GFR <15 VERY LITTLE GFR LEFT ESRD GFR <15 ON CHIN STRAP SEWER 5 100-125 mg/dL PRE-DIABET ES/FASTING >126 mg/dL DIABETES/FASTING 6 CHRONIC KIDNEY DISEASE STAGI NG PER NKF STAGE I & II GFR >= 60 NORMAL TO MILDLY DECREASED STAGE III GFR 30-59 MODERATELY DECREASED STAGE IV GFR 15-29 SEVERELY DECREASED STAGE V GFR <15 VERY LITTLE GFR LEFT ESRD GFR <15 ON CHIN STRAP SEWER Procedures Date Code Description Status 09/11/2020 03581 Office/Outpatient Established Mo d MDM 30-39 Min Completed 08/20/2019 [id number] Diabetic Retinal Eye Exam Comple [facility] 08/19/2019 [id number] Diabetic Retinal Eye Exam Comple [facility] 08/18/2019 [id number] Diabetic Retinal Eye Exam Comple [facility] 08/16/2019 [id number] Diabetic Retinal Eye Exam Comple [facility] 02/09/2019 [id number] Mammogram Completed 03/26/2017 [id number] Colonoscopy Completed 12/18/2015 [id number] Mammogram Completed 12/18/2011 [id number] Colonoscopy Completed Medical Devices Description No Information Available Encounters Type Date Location Provider Dx Diagnosis Office Visit 09/11/2020 1:30p [facility] Hari Morales M.D. E78.00 Pure [...] 07/29/2021 10:40 am - [facility] * 07/26/2021 9:40 am - [facility] * 07/29/2021 11:00 am - Hari Morales M.D. at [facility] 03/08/2021 - Hari Morales M.D.* [...]
--- OUTSIDE RECORDS SUMMARY | 2021-03-21 06:17 | CCD ---
Author Author [facility] Organization [facility] Address Unknown Phone Unavailable Care Team Providers Care American Indian Studies Professor Name Role Phone Carmela Morales MD Unavailable Unavailable Carmela Morales MD Unavailable Unavailable Carmela Morales MD Unavailable Unavailable Carmela Morales MD Unavailable Unavailable Carmela Morales MD Unavailable Unavailable Carmela Morales MD Unavailable Unavailable Carmela Morales MD Unavailable Unavailable Carmela Morales MD Unavailable Unavailable Carmela Morales MD Unavailable Unavailable Carmela Morales MD Unavailable Unavailable Carmela Morales MD Unavailable Unavailable Carmela Morales MD Unavailable Unavailable Carmela Morales MD Unavailable Unavailable Carmela Morales MD Unavailable Unavailable Carmela Morales MD Unavailable Unavailable Carmela Morales MD Unavailable Unavailable Carmela Morales MD Unavailable Unavailable Carmela Morales MD Unavailable Unavailable Carmela Morales MD Unavailable Unavailable Carmela Morales MD Unavailable Unavailable Carmela Morales MD Unavailable Unavailable Carmela Morales MD Unavailable Unavailable Carmela Morales MD Unavailable Unavailable Carmela Morales MD Unavailable Unavailable Carmela Morales MD Unavailable Unavailable Carmela Morales MD Unavailable Unavailable Carmela Morales MD Unavailable Unavailable Carmela Morales MD Unavailable Unavailable Carmela Morales MD Unavailable Unavailable Carmen F Hari Unavailable Unavailable White F Hari Unavailable Unavailable White F Hari Unavailable Unavailable Carmen F Hari MCINTOSH Unavailable Unavailable White F Hari MCINTOSH Unavailable Unavailable White F Hari Unavailable Unavailable White F Hari MCINTOSH Unavailable Unavailable White F Hari Unavailable Unavailable White F Hari MCINTOSH Unavailable Unavailable White F Hari MCINTOSH Unavailable Unavailable White F Hari MCINTOSH Unavailable Unavailable Carmen F Hari MCINTOSH Unavailable Unavailable White F Hari MCINTOSH Unavailable Unavailable White F Hari MCINTOSH Unavailable Unavailable White F Hari MCINTOSH Unavailable Unavailable White F Hari Unavailable Unavailable White F Hari MCINTOSH Unavailable Unavailable White F Hari Unavailable Unavailable Carmen F Hari MCINTOSH Unavailable Unavailable Carmen F Hari MCINTOSH Unavailable Unavailable Carmen F Hari MCINTOSH Unavailable Unavailable Carmen F Hari MCINTOSH Unavailable Unavailable Carmen F Hari MCINTOSH Unavailable Unavailable Carmen F Hari MCINTOSH Unavailable Unavailable Carmen F Hari MCINTOSH Unavailable Unavailable Carmen F Hari MCINTOSH Unavailable Unavailable Carmen F Hari MCINTOSH Unavailable Unavailable Carmen F Hari MCINTOSH Unavailable Unavailable Carmen F Hari MCINTOSH Unavailable Unavailable Carmen F Hari MCINTOSH Unavailable Unavailable Carmen F Hari MCINTOSH Unavailable Unavailable Carmen F Hari MCINTOSH Unavailable Unavailable Carmen F Hari MCINTOSH Unavailable Unavailable Carmen F Hari MCINTOSH Unavailable Unavailable Carmen F Hari MCINTOSH Unavailable Unavailable Carmen F Hari MCINTOSH Unavailable Unavailable Carmen F Hari MCINTOSH Unavailable Unavailable Carmen F Hari MCINTOSH Unavailable Unavailable Carmen F Hari MCINTOSH Unavailable Unavailable Carmen F Hari MCINTOSH Unavailable Unavailable Carmen F Hari MCINTOSH Unavailable Unavailable Carmela Morales MD Unavailable Unavailable Carmela Morales MD Unavailable Unavailable Carmen F Hari MCINTOSH Unavailable Unavailable Carmen F Hari MCINTOSH Unavailable Unavailable Carmen F Hari MCINTOSH Unavailable Unavailable Carmen F Hari MCINTOSH Unavailable Unavailable Carmen F Hari MCINTOSH Unavailable Unavailable Iraj LAY MD Unavailable Unavailable Iraj LAY MD Unavailable Unavailable Iraj LAY MD Unavailable Unavailable Iraj LAY MD Unavailable Unavailable Iraj LAY MD Unavailable Unavailable Iraj LAY MD Unavailable Unavailable Iraj LAY MD Unavailable Unavailable Iraj LAY MD Unavailable Unavailable Iraj LAY MD Unavailable Unavailable Iraj LAY MD Unavailable Unavailable Iraj LAY MD Unavailable Unavailable Iraj LAY MD Unavailable Unavailable Iraj LAY MD Unavailable Unavailable LAY, L SABRINA MCINTOSH Unavailable Unavailable LAY, L SABRINA MCINTOSH Unavailable Unavailable LAY, L SABRINA MCINTOSH Unavailable Unavailable LAY, L SABRINA MCINTOSH Unavailable Unavailable LAY, L SABRINA MCINTOSH Unavailable Unavailable LAY, L SABRINA MCINTOSH Unavailable Unavailable LAY, L SABRINA MCINTOSH Unavailable Unavailable LAY, L SABRINA MCINTOSH Unavailable Unavailable LAY, L SABRINA MCINTOSH Unavailable Unavailable LAY, L SABRINA MCINTOSH Unavailable Unavailable LAY, L SABRINA MCINTOSH Unavailable Unavailable LAY, L SABRINA MCINTOSH Unavailable Unavailable LAY, L SABRINA MCINTOSH Unavailable Unavailable LAY, L SABRINA MCINTOSH Unavailable Unavailable LAY, L SABRINA MCINTOSH Unavailable Unavailable LAY, L SABRINA MCINTOSH Unavailable Unavailable LAY, L SABRINA MCINTOSH Unavailable Unavailable LAY, L SABRINA MCINTOSH Unavailable Unavailable LAY, L SABRINA MCINTOSH Unavailable Unavailable LAY, L SABRINA MCINTOSH Unavailable Unavailable LAY, L SABRINA MCINTOSH Unavailable Unavailable LAY, L SABRINA MCINTOSH Unavailable Unavailable LAY, L SABRINA MCINTOSH Unavailable Unavailable LAY, L SABRINA MCINTOSH Unavailable Unavailable LAY, L SABRINA MCINTOSH Unavailable Unavailable LAY, L SABRINA MCINTOSH Unavailable Unavailable LAY, L SABRINA MCINTOSH Unavailable Unavailable LAY, L SABRINA MCINTOSH Unavailable Unavailable LAY, L SABRINA MCINTOSH Unavailable Unavailable LAY, L SABRINA MCINTOSH Unavailable Unavailable LAY, L SABRINA MCINTOSH Unavailable Unavailable LAY, L SABRINA MCINTOSH Unavailable Unavailable JEANNETTE, J Chantal ANP Unavailable Unavailable JEANNETTE, J Chantal ANP Unavailable Unavailable JEANNETTE, J Chantal ANP Unavailable Unavailable JEANNETTE, J Chantal ANP Unavailable Unavailable JEANNETTE, J Chantal ANP Unavailable Unavailable JEANNETTE, J Chantal ANP Unavailable Unavailable JEANNETTE, J Chantal ANP Unavailable Unavailable JEANNETTE, J Chantal ANP Unavailable Unavailable JEANNETTE, J Chantal ANP Unavailable Unavailable JEANNETTE, J Chantal ANP Unavailable Unavailable JEANNETTE, J Chantal ANP Unavailable Unavailable JEANNETTE, J Chantal ANP Unavailable Unavailable JEANNETTE, J Chantal ANP Unavailable Unavailable JEANNETTE, J Chantal ANP Unavailable Unavailable JEANNETTE, J Chantal ANP Unavailable Unavailable JEANNETTE, J Chantal ANP Unavailable Unavailable JEANNETTE, J Chantal ANP Unavailable Unavailable JEANNETTE, J Chantal ANP Unavailable Unavailable JEANNETTE, J Chantal ANP Unavailable Unavailable JEANNETTE, J Chantal ANP Unavailable Unavailable JEANNETTE, J Chantal ANP Unavailable Unavailable JEANNETTE, J Chantal ANP Unavailable Unavailable JEANNETTE, J Chantal ANP Unavailable Unavailable JEANNETTE, J Chantal ANP Unavailable Unavailable JEANNETTE, J Chantal ANP Unavailable Unavailable JEANNETTE, J Chantal ANP Unavailable Unavailable JEANNETTE, J Chantal ANP Unavailable Unavailable JEANNETTE, J Chantal ANP Unavailable Unavailable JEANNETTE, J Chantal ANP Unavailable Unavailable JEANNETTE, J Chantal ANP Unavailable Unavailable JEANNETTE, J Chantal ANP Unavailable Unavailable JEANNETTE, J Chantal ANP Unavailable Unavailable JEANNETTE, J Chantal ANP Unavailable Unavailable JEANNETTE, J Chantal ANP Unavailable Unavailable JEANNETTE, J Chantal ANP Unavailable Unavailable JEANNETTE, J Chantal ANP Unavailable Unavailable JEANNETTE, J Chantal ANP Unavailable Unavailable JEANNTETE, J Chantal ANP Unavailable Unavailable JEANNETTE, J Chantal ANP Unavailable Unavailable JEANNETTE, J Chantal ANP Unavailable Unavailable JEANNETTE, J Chantal ANP Unavailable Unavailable JEANNETTE, J Chantal ANP Unavailable Unavailable JEANNETTE, J Chantal ANP Unavailable Unavailable JEANNETTE, J Chanatl ANP Unavailable Unavailable JEANNETTE, J Chantal ANP Unavailable Unavailable JEANNETTE, J Chantal ANP Unavailable Unavailable JEANNETTE, J Chantal ANP Unavailable Unavailable JEANNETTE, J Chantal ANP Unavailable Unavailable JEANNETTE, J Chantal ANP Unavailable Unavailable JEANNETTE, J Chantal ANP Unavailable Unavailable JEANNETTE, J Chantal ANP Unavailable Unavailable JEANNETTE, J Chantal ANP Unavailable Unavailable JEANNETTE, J Chantal ANP Unavailable Unavailable JEANNETTE, J Chantal ANP Unavailable Unavailable JEANNETTE, J Chantal ANP Unavailable Unavailable JEANNETTE, J Chantal ANP Unavailable Unavailable JEANNETTE, J Chantal ANP Unavailable Unavailable JEANNETTE, J Chantal ANP Unavailable Unavailable JEANNETTE, J Chantal ANP Unavailable Unavailable JEANNETTE, J Chantal ANP Unavailable Unavailable JEANNETTE, J Chantal ANP Unavailable Unavailable JEANNETTE, J Chantal ANP Unavailable Unavailable JEANNETTE, J Chantal ANP Unavailable Unavailable JEANNETTE, J Chantal ANP Unavailable Unavailable Re-disclosure Warning The records that you are about to access may contain information from federally-assisted alcohol or drug abuse programs. If such information is present, then the following federally mandated warning applies: This information has been disclosed to you from records protected by federal confidentiality rules (42 CFR part 2). The federal rules prohibit you from making any further disclosure of this information unless further disclosure is expressly permitted by the written consent of the person to whom it pertains or as otherwise permitted by 42 CFR part 2. A general authorization for the release of medical or other information is NOT sufficient for this purpose. The Federal rules restrict any use of the information to criminally investigate or prosecute any alcohol or drug abuse patient.The records that you are about to access may contain highly sensitive health information, the redisclosure of which is protected by Article 27-F of the [facility] Public Health law. If you continue you may have access to information: Regarding HIV / AIDS; Provided by facilities licensed or operated by the [facility] Office of Mental Health; or Provided by the [facility] Office for People With Developmental Disabilities. If such information is present, then the following [facility] mandated warning applies: This information has been disclosed to you from confidential records which are protected by state law. State law prohibits you from making any further disclosure of this information without the specific written consent of the person to whom it pertains, or as otherwise permitted by law. Any unauthorized further disclosure in violation of state law may result in a fine or mcfp sentence or both. A general authorization for the release of medical or other information is NOT sufficient authorization for further disc losure. 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 COVID-19 VACCINE Moderna 07/12/2020 12:00:00 AM EST completed [facility] Vaccine Series Complete: NOThis Data was Submitted to [facility]. Influenza, injectable, MDCK, preservative free, hanh valent 02/09/2020 11:39:00 AM EDT completed [facility] ([facility]) Medications Medication Brand Name Start Date Product Form Dose Route Admi nistrative Instructions Pharmacy Instructions Status Indications Reaction Description Data Source(s) 0.05 % 03/03/2021 12:00:00 AM EDT ointment 15 APPLY TO FINGERTIPS SPARINGLY TWO TIMES A DAY FOR 2 WEEKS APPLY TO [facility] SPARINGLY TWO TIMES A DAY FOR 2 WEEKS SOLD: 03/05/2021 [facility] 20 mg 01/10/2021 12:00:00 AM EDT tablet 180 TAKE ONE TABLET BY MOUTH TWICE A DAY TAKE ONE TABLET BY MOUTH TWICE A DAY SOLD: 01/15/2021 [facility] 300 mg 12/07/2020 12:00:00 AM EDT capsule 120 TAKE ONE CAPSULE BY MOUTH FOUR TIMES A DAY TAKE ONE CAPSULE BY MOUTH FOUR TIMES A DAY SOLD: 01/10/2021 [facility] 300 mg 12/07/2020 12:00:00 AM EDT capsule 120 TAKE ONE CAPSULE BY MOUTH FOUR TIMES A DAY TAKE ONE CAPSULE BY MOUTH FOUR TIMES A DAY SOLD: 12/10/2020 [facility] 300 mg 12/07/2020 12:00:00 AM EDT capsule 120 TAKE ONE CAPSULE BY MOUTH FOUR TIMES A DAY TAKE ONE CAPSULE BY MOUTH FOUR TIMES A DAY SOLD: 02/14/2021 [facility] 100 mg 09/20/2020 12:00:00 AM EDT tablet 135 TAKE 1 & 1/2 TABLETS BY MOUTH EVERY DAY TAKE 1 & 1/2 TABLETS BY MOUTH EVERY DAY SOLD: 09/21/2020 [facility] 300 mg 09/03/2020 12:00:00 AM EDT capsule 120 TAKE ONE CAPSULE BY MOUTH FOUR TIMES A DAY TAKE ONE CAPSULE BY MOUTH FOUR TIMES A DAY SOLD: 11/05/2020 [facility] 300 mg 09/03/2020 12:00:00 AM EDT capsule 120 TAKE ONE CAPSULE BY MOUTH FOUR TIMES A DAY TAKE ONE CAPSULE BY MOUTH FOUR TIMES A DAY SOLD: 10/06/2020 [facility] 175 mcg 07/25/2020 12:00:00 AM EDT tablet 90 TAKE ONE TABLET BY MOUTH EVERY DAY TAKE ONE TABLET BY MOUTH EVERY DAY SOLD: 07/31/2020 [facility] 175 mcg 07/25/2020 12:00:00 AM EDT tablet 90 TAKE ONE TABLET BY MOUTH EVERY DAY TAKE ONE TABLET BY MOUTH EVERY DAY SOLD: 11/09/2020 [facility] 175 mcg 07/25/2020 12:00:00 AM EDT tablet 90 TAKE ONE TABLET BY MOUTH EVERY DAY TAKE ONE TABLET BY MOUTH EVERY DAY SOLD: 02/21/2021 [facility] 300 mg 05/24/2020 12:00:00 AM EST capsule 120 TAKE ONE CAPSULE BY MOUTH FOUR TIMES A DAY TAKE ONE CAPSULE BY MOUTH FOUR TIMES A DAY SOLD: 07/31/2020 [facility] 0.05 % 05/24/2020 12:00:00 AM EST ointment 15 APPLY TO FINGERTIPS SPARINGLY TWO TIMES A DAY FOR TWOWEEKS APPLY TO [facility]INGERTIPS SPARINGLY TWO TIMES A DAY FOR TWOWEEKS SOLD: 07/31/2020 [facility] 0.05 % 05/24/2020 12:00:00 AM EST ointment 15 APPLY TO FINGERTIPS SPARINGLY TWO TIMES A DAY FOR TWOWEEKS APPLY TO FINGERTIPS SPARINGLY TWO TIMES A DAY FOR TWOWEEKS SOLD: 05/25/2020 [facility] 300 mg 05/24/2020 12:00:00 AM EST capsule 120 TAKE ONE CAPSULE BY MOUTH FOUR TIMES A DAY TAKE ONE CAPSULE BY MOUTH FOUR TIMES A DAY SOLD: 05/25/2020 [facility] 300 mg 05/24/2020 12:00:00 AM EST capsule 120 TAKE ONE CAPSULE BY MOUTH FOUR TIMES A DAY TAKE ONE CAPSULE BY MOUTH FOUR TIMES A DAY SOLD: 06/27/2020 [facility] 300 mg 04/24/2020 12:00:00 AM EST capsule 120 TAKE ONE CAPSULE BY MOUTH FOUR TIMES A DAY TAKE ONE CAPSULE BY MOUTH FOUR TIMES A DAY SOLD: 04/25/2020 [facility] 300 mg 03/23/2020 12:00:00 AM EST capsule 120 TAKE ONE CAPSULE BY MOUTH FOUR TIMES A DAY TAKE ONE CAPSULE BY MOUTH FOUR TIMES A DAY SOLD: 03/26/2020 [facility] 90 mcg/actuation 2020 12:00:00 AM EST HFA aerosol inha ler 8 INHALE TWO PUFFS BY MOUTH EVERY 4 HOURS NEEDED FOR COUGH/ SHORTNESS OF BREATH INHALE TWO PUFFS BY MOUTH EVERY 4 HOURS NEEDED FOR COUGH/ SHORTNESS OF BREATH SOLD: 03/19/2020 [facility] 90 mcg/actuation 2020 12:00:00 AM EST HFA aerosol inha ler 8 INHALE TWO PUFFS BY MOUTH EVERY 4 HOURS NEEDED FOR COUGH/ SHORTNESS OF BREATH INHALE TWO PUFFS BY MOUTH EVERY 4 HOURS NEEDED FOR COUGH/ SHORTNESS OF BREATH SOLD: 08/23/2020 [facility] Famotidine 20 MG Oral Tablet [Pepcid] Pepcid 03/12/2020 12:00:00 AM EST ORAL active [facility] ([facility]) 300 mg 02/17/2020 12:00:00 AM EDT capsule 120 TAKE ONE CAPSULE BY MOUTH FOUR TIMES A DAY TAKE ONE CAPSULE BY MOUTH FOUR TIMES A DAY SOLD: 02/21/2020 [facility] Administration Of Flu Vaccine 02/09/2020 12:00:00 AM EDT completed [facility] ([facility]) Medication administered onsite 20 mg 01/19/2020 12:00:00 AM EDT tablet 180 TAKE ONE TABLET BY MOUTH TWICE A DAY TAKE ONE TABLET BY MOUTH TWICE A DAY SOLD: 07/31/2020 [facility] 20 mg 01/19/2020 12:00:00 AM EDT tablet 180 TAKE ONE TABLET BY MOUTH TWICE A DAY TAKE ONE TABLET BY MOUTH TWICE A DAY SOLD: 11/05/2020 [facility] 20 mg 01/19/2020 12:00:00 AM EDT tablet 180 TAKE ONE TABLET BY MOUTH TWICE A DAY TAKE ONE TABLET BY MOUTH TWICE A DAY SOLD: 01/24/2020 [facility] 20 mg 01/19/2020 12:00:00 AM EDT tablet 180 TAKE ONE TABLET BY MOUTH TWICE A DAY TAKE ONE TABLET BY MOUTH TWICE A DAY SOLD: 05/01/2020 [facility] Insurance Providers Payer name Policy type / Coverage type Policy ID Covered alliance party ID Covered alliance party's relationship to husain Policy Husain Plan Information SONAL Man [facility] Part B [id number] Self [id number] EXCELLUS C [id number] Self [id number] EXCELLUS H [id number] Self [id number] BCBS [employer] [id number]/803 [id number] SP [id number] Medicare Natl Govt Servic Medicare Primary [id number] Self MEDICARE [id number] SP [id number] Medicare [place] Primary [id number] Self [id number] Medicare [place] Primary [id number] Self [id number] MEDICARE [id number] SP [id number] MEDICARE A [id number] Self [id number] U88 MEDICARE A [id number] Self [id number] A [facility] Jurisdiction A [facility] C [id number] SELF [id number] Medicare Natl Govt Servic Medicare Primary [id number] Self [id number] Medicare Natl Govt Servic Medicare Primary [id number] Self [id number] Medicare Natl Govt Serv Medicare Primary [id number] Self [id number] Medicare [place] Medicare Primary [id number] Self [id number] MEDICARE [id number] SP [id number] A Medicare C [id number] SELF [id number] EXCELLUS H [id number] Self [id number] [place] 302/307 [id number] SP [id number] BLUE CARD C [id number] Self [id number] Blue Cross Blue Shield P [id number] SELF [id number] Blue Cross Blue Shield P [id number] SELF [id number] [place] 302/307 [id number] SP [id number] [employer] [id number] S [id number] BC/BS [place] Ppo Health Maintenance Organization (HMO) [id number] Self [id number] BCBS EXCELLUS [id number] S [id number] BS [place] Trad/MX Medigap Part B [id number] Self [id number] MEDICARE C [id number] S [id number] A [place] PPO 302/307 [id number] SP [id number] MEDICARE [id number] SP [id number] A BCBS [employer] 303/803 [id number] SP [id number] BS [place] Trad/MX Commercial [id number] Self [id number] BS [place] Trad/MX Medigap Part B [id number] Self [id number] Medicare [place] Medicare Primary [id number] Self [id number] BS [place] Trad/MX Commercial [id number] Self [id number] MEDICARE - [place] [id number] S [id number] BLUE CROSS BLUE SHIELD -O/P [id number] MEDICARE -O/P [id number] 18 [id number] EXCELLUS BCBS B [id number] S [id number] BC/BS [facility] Part B [id number] Self Medicare [place] Primary [id number] Self [place] MEDICARE DIVISION [id number] S [id number] BCBS EXCELLUS [id number] S [facility] [id number] EXCELLUS BCBS B [id number] S [id number] MEDICARE [id number] S [id number] U88 BC/[place] Ppo Health Maintenance Organization (HMO) [id number] Self [id number] MEDICARE - [place] [id number] S [id number] Problems, Conditions, and Diagnoses No Information Surgeries/Procedures Procedure Description Date Indications Data Source(s) OFFICE OUTPATIENT VISIT 25 MINUTES 01/09/2021 12:00:00 AM EDT [facility] ([facility]) OFFICE OUTPATIENT VISIT 25 MINUTES 09/11/2020 12:00:00 AM EDT [facility] ([facility]) ECG ROUTINE ECG W/LEAST 12 LDS W/I&R 07/30/2020 12:00: 00 AM EDT [facility] ([facility]) OFFICE OUTPATIENT VISIT 15 MINUTES 07/30/2020 12:00:00 AM EDT [facility] Results ID Date Data Source [id number] 03/08/2021 11:26:00 AM EDT [facility] ([facility]) Name Value Range Interpretation Code Description Data Gina rce(s) Supporting Document(s) Thyroxine (T4) free [Mass/volume] in Serum or Plasma 0.99 ng/dL 0.76- 1.46 [facility] ([facility]) ID Date Data Source [id number] 03/08/2021 11:26:00 AM EDT [facility] ([facility]) Name Value Range Interpretation Code Description Data Gina rce(s) Supporting Document(s) Thyrotropin [Units/volume] in Serum or Plasma by Detec tion limit <= 0.05 mIU/L 1.49 uIU/mL 0.36-3.74 [facility] ([facility] ) ID Date Data Source [id number] 03/08/2021 11:26:00 AM EDT [facility] ([facility]) Name Value Range Interpretation Code Description Data Gina rce(s) Supporting Document(s) Glucose [Mass/volume] in Serum or Plasma 88 mg/dL 74-99 [facility] ([facility]) 100-125 mg/dL PRE-DIABETES/FASTING >126 mg/dL DIABETES/FASTING Creatinine 0.6 mg/dL 0.6-1.3 [facility] ([facility] Urea nitrogen [Mass/volume] in Serum or Plasma 19 mg/dL 7-18 [facility] ([facility]) Potassium [Moles/volume] in Serum or Plasma 5.1 meq/L 3.5-5.1 [facility] ([facility]) Sodium [Moles/volume] in Serum or Plasma 139 meq/L 136-145 [facility] ([facility]) Chloride [Moles/volume] in Serum or Plasma 103 meq/L 98-107 [facility] ([facility]) Glomerular filtration rate/1.73 sq M pre dicted among non-blacks [Volume Rate/Area] in Serum or Plasma by Creatinine-based formula (MDRD) Laboratory test result [facility] ([facility] ) Carbon dioxide, total [Moles/volume] in Serum or Plasma 31 meq/L 21 -32 [facility] ([facility]) Calcium [Mass/volume] in Serum or Plasma 9.6 mg/dL 8.5-10.1 [facility] Glomerular filtration rate/1.73 sq M pre dicted among blacks [Volume Rate/Area] in Serum or Plasma by Creatinine-based formula (MDRD) Laboratory test result [facility] ([facility]) <content>CHRONIC KIDNEY DISEASE STAGING PER NKF</content>
<content></content>
<content>STAGE I & II GFR >= 60 NORMAL TO MILDLY DECREASED</content>
<content>STAGE III GFR 30-59 MODERATELY DECREASED</content>
<content>STAGE IV GFR 15-29 SEVERELY DECREASED</content>
<content>STAGE V GFR <15 VERY LITTLE GFR LEFT</content>
<content>ESRD GFR <15 ON BALL SORTER</content>
<content></content> ID Date Data Source [id number] 03/08/2021 11:26:00 AM EDT [facility] ([facility]) Name Value Range Interpretation Code Description Data Gina rce(s) Supporting Document(s) Leukocytes [#/volume] in Blood by Automated count 4.5 x10*3/UL 4.1-10 .9 [facility] ([facility]) Erythrocytes [#/volume] in Blood by Automated count 4.26 x10*6/UL 4.2 0-6.30 [facility] ([facility]) MCV 92.0 fL 80.0-97.0 [facility] Hemoglobin [Mass/volume] in Blood 13.3 g/dL 12.0-18.0 [facility] ([facility]) Hematocrit [Volume Fraction] of Blood by Automated count 39.2 % 3 7.0-51.0 [facility] ([facility]) MCH 31.1 pg 26.0-32.0 [facility] Erythrocyte distribution width [Ratio] by Automated count 13.2 % 11.6-13.7 [facility] ([facility]) MCHC 33.8 g/dL 31.0-38.0 [facility]) MPV 7.0 FL 7.8-11.0 [facility] Platelets [#/volume] in Blood by Automated count 236 x10*3/UL 140-440 [facility] ([facility]) Lymph % 29.2 % 10.0-58.5 [facility] Mid % 6.1 % 1.7-9.3 [facility] ([facility] Neut % 64.7 % 37.0-92.0 [facility] Lymph # 1.3 x10*3/UL 0.6-4.1 [facility] ([facility]) Neut # 2.9 x10*3/UL 2.0-7.8 [facility] ([facility]) Mid # 0.3 x10*3/UL 0.1-0.6 [facility] ([facility]) ID Date Data Source [id number] 01/25/2021 09:45:00 AM EDT [facility] ([facility]) Name Value Range Interpretation Code Description Data Gina rce(s) Supporting Document(s) Thyrotropin [Units/volume] in Serum or Plasma by Detec tion limit <= 0.05 mIU/L 4.31 uIU/mL 0.36-3.74 [facility] ([facility] ) ID Date Data Source [id number] 01/25/2021 09:45:00 AM EDT [facility] ([facility]) Name Value Range Interpretation Code Description Data Gina rce(s) Supporting Document(s) Cholesterol [Mass/volume] in Serum or Plasma 226 mg/dL 131-200 [facility] ([facility]) Cholesterol in HDL [Mass/volume] in Serum or Plasma 91 mg/dL 35-60 [facility] ([facility]) Triglyceride [Mass/volume] in Serum or Plasma 49 mg/dL 30-150 [facility] ([facility]) Cholesterol in LDL [Mass/volume] in Serum or Plasma by calcu lation 125 CALC 50-159 [facility] ([facility]) ID Date Data Source [id number] 01/25/2021 09:45:00 AM EDT [facility] ([facility]) Name Value Range Interpretation Code Description Data Gina rce(s) Supporting Document(s) Glucose [Mass/volume] in Serum or Plasma 92 mg/dL 74-99 [facility] ([facility]) 100-125 mg/dL PRE-DIABETES/FASTING >126 mg/dL DIABETES/FASTING Sodium [Moles/volume] in Serum or Plasma 141 meq/L 136-145 [facility] ([facility]) Creatinine 0.7 mg/dL 0.6-1.3 [facility] Urea nitrogen [Mass/volume] in Serum or Plasma 17 mg/dL 7-18 [facility] ([facility]) Potassium [Moles/volume] in Serum or Plasma 4.6 meq/L 3.5-5.1 [facility] ([facility]) Chloride [Moles/volume] in Serum or Plasma 104 meq/L 98-107 [facility] ([facility]) Calcium [Mass/volume] in Serum or Plasma 9.7 mg/dL 8.5-10.1 [facility] ([facility]) Carbon dioxide, total [Moles/volume] in Serum or Plasma 32 meq/L 21 -32 [facility] ([facility]) Aspartate aminotransferase [Enzymatic activity/volume] in Serum or Plasma 19 U/L 15-37 [facility] ([facility] ) Alkaline phosphatase isoenzyme [Units/volume] in Serum or Pl asma 67 mg/dL 46-116 [facility] ([facility]) Total Bilirubin 0.6 mg/dL 0.2-1.0 [facility] ([facility]) Albumin [Mass/volume] in Serum or Plasma 3.9 g/dL 3.4-5.0 [facility] ([facility]) Alanine aminotransferase [Enzymatic activity/volume] in Seru m or Plasma 29 U/L 12-78 [facility] ([facility]) A/G Ratio 1.26 CALC 1.00-1.90 [facility] Proteinase 3 Ab [Units/volume] in Serum 7.0 g/dL 6.4-8.2 [facility] ([facility]) Glomerular filtration rate/1.73 sq M pre dicted among blacks [Volume Rate/Area] in Serum or Plasma by Creatinine-based formula (MDRD) Laboratory test [facility] <content>CHRONIC KIDNEY DISEASE STAGING PER NKF</content>
<content></content>
<content>STAGE I & II GFR >= 60 NORMAL TO MILDLY DECREASED</content>
<content>STAGE III GFR 30-59 MODERATELY DECREASED</content>
<content>STAGE IV GFR 15-29 SEVERELY DECREASED</content>
<content>STAGE V GFR <15 VERY LITTLE GFR LEFT</content>
<content>ESRD GFR <15 ON BALL SORTER</content>
<content></content> Glomerular filtration rate/1.73 sq M pre dicted among non-blacks [Volume Rate/Area] in Serum or Plasma by Creatinine-based formula (MDRD) Laboratory test result [facility] ID Date Data Source [id number] 01/25/2021 09:45:00 AM EDT [facility] Name Value Range Interpretation Code Description Data Gina rce(s) Supporting Document(s) Leukocytes [#/volume] in Blood by Automated count 4.0 x10*3/UL 4.1-10 .9 [facility] Erythrocytes [#/volume] in Blood by Automated count 4.33 x10*6/UL 4.2 0-6.30 [facility] Hemoglobin [Mass/volume] in Blood 13.5 g/dL 12.0-18.0 [facility] Hematocrit [Volume Fraction] of Blood by Automated count 40.5 % 3 7.0-51.0 [facility] MCV 93.7 fL 80.0-97.0 [facility] MCH 31.3 pg 26.0-32.0 [facility] ([facility]) MCHC 33.4 g/dL 31.0-38.0 [facility] ([facility]) Platelets [#/volume] in Blood by Automated count 225 x10*3/UL 140-440 [facility] Erythrocyte distribution width [Ratio] by Automated count 13.8 % 11.6-13.7 [facility] ([facility]) Lymph % 29.7 % 10.0-58.5 [facility] Mid % 7.0 % 1.7-9.3 [facility] ([facility]) MPV 7.3 FL 7.8-11.0 [facility] ([facility]) Lymph # 1.2 x10*3/UL 0.6-4.1 [facility] ([facility]) Neut % 63.3 % 37.0-92.0 [facility] Mid # 0.3 x10*3/UL 0.1-0.6 [facility] ([facility]) Neut # 2.5 x10*3/UL 2.0-7.8 [facility] ([facility]) ID Date Data Source [id number] 01/09/2021 12:00:00 PM EDT [facility] ([facility]) Name Value Range Interpretation Code Description Data Gina rce(s) Supporting Document(s) TP Reflex HPV ASCUS Laboratory test result [facility] ([facility]) SPECIMEN PART------ A. Vaginal, ThinPrep Pap (Gis Professor) CYTOLOGY HX-------- Other Information: Hysterectomy Previous Normal Pap: 01/07/19 FINAL DIAGNOSIS---- INTERPRETATION: Negative for Intraepithelial Lesion or Malignancy. SPECIMEN ADEQUACY:Satisfactory for evaluation. ADDITIONAL FINDINGS:Atrophic pattern. TP Reflex HPV ASCUS Laboratory test result [facility] ([facility]) ID Date Data Source [id number] 09/10/2020 09:46:00 AM EDT [facility] ([facility]) Name Value Range Interpretation Code Description Data Gina rce(s) Supporting Document(s) Thyroxine (T4) free [Mass/volume] in Serum or Plasma 0.76 ng/dL 0.76- 1.46 [facility] ([facility]) ID Date Data Source [id number] 09/10/2020 09:46:00 AM EDT [facility] ([facility]) Name Value Range Interpretation Code Description Data Gina rce(s) Supporting Document(s) Thyrotropin [Units/volume] in Serum or Plasma by Detec tion limit <= 0.05 mIU/L 3.10 uIU/mL 0.36-3.74 [facility] ([facility] ) ID Date Data Source [id number] 09/10/2020 09:46:00 AM EDT [facility] ([facility]) Name Value Range Interpretation Code Description Data Gina rce(s) Supporting Document(s) Cholesterol [Mass/volume] in Serum or Plasma 201 mg/dL 131-200 [facility] ([facility]) Triglyceride [Mass/volume] in Serum or Plasma 46 mg/dL 30-150 [facility] ([facility]) Cholesterol in HDL [Mass/volume] in Serum or Plasma 95 mg/dL 35-60 [facility] ([facility]) Cholesterol in LDL [Mass/volume] in Serum or Plasma by calcu lation 97 CALC 50-159 [facility] ([facility]) ID Date Data Source [id number] 09/10/2020 09:46:00 AM EDT [facility] ([facility]) Name Value Range Interpretation Code Description Data Gina rce(s) Supporting Document(s) Glucose [Mass/volume] in Serum or Plasma 83 mg/dL 74-99 [facility] ([facility]) 100-125 mg/dL PRE-DIABETES/FASTING >126 mg/dL DIABETES/FASTING Urea nitrogen [Mass/volume] in Serum or Plasma 23 mg/dL 7-18 [facility] ([facility]) Creatinine 0.7 mg/dL 0.6-1.3 [facility] Chloride [Moles/volume] in Serum or Plasma 103 meq/L 98-107 [facility] ([facility]) Sodium [Moles/volume] in Serum or Plasma 143 meq/L 136-145 [facility] ([facility]) Potassium [Moles/volume] in Serum or Plasma 4.6 meq/L 3.5-5.1 [facility] ([facility]) Calcium [Mass/volume] in Serum or Plasma 8.8 mg/dL 8.5-10.1 [facility] ([facility]) Carbon dioxide, total [Moles/volume] in Serum or Plasma 32 meq/L 21 -32 [facility] ([facility]) Aspartate aminotransferase [Enzymatic activity/volume] in Serum or Plasma 23 U/L 15-37 [facility] ([facility] ) Alkaline phosphatase isoenzyme [Units/volume] in Serum or Pl asma 76 mg/dL 46-116 [facility] Total Bilirubin 0.6 mg/dL 0.2-1.0 [facility] ([facility]) Albumin [Mass/volume] in Serum or Plasma 4.0 g/dL 3.4-5.0 [facility] Alanine aminotransferase [Enzymatic activity/volume] in Seru m or Plasma 30 U/L 12-78 [facility] ([facility]) A/G Ratio 1.25 CALC 1.00-1.90 [facility] Proteinase 3 Ab [Units/volume] in Serum 7.2 g/dL 6.4-8.2 [facility] Glomerular filtration rate/1.73 sq M pre dicted among non-blacks [Volume Rate/Area] in Serum or Plasma by Creatinine-based formula (MDRD) Laboratory test result [facility] Glomerular filtration rate/1.73 sq M pre dicted among blacks [Volume Rate/Area] in Serum or Plasma by Creatinine-based formula (MDRD) Laboratory test result [facility] <content>CHRONIC KIDNEY DISEASE STAGING PER NKF</content>
<content></content>
<content>STAGE I & II GFR >= 60 NORMAL TO MILDLY DECREASED</content>
<content>STAGE III GFR 30-59 MODERATELY DECREASED</content>
<content>STAGE IV GFR 15-29 SEVERELY DECREASED</content>
<content>STAGE V GFR <15 VERY LITTLE GFR LEFT</content>
<content>ESRD GFR <15 ON BALL SORTER</content>
<content></content> ID Date Data Source [id number] 09/10/2020 09:46:00 AM EDT [facility] ([facility]) Name Value Range Interpretation Code Description Data Gina rce(s) Supporting Document(s) Leukocytes [#/volume] in Blood by Automated count 3.9 x10*3/UL 4.1-10 .9 [facility] Erythrocytes [#/volume] in Blood by Automated count 4.26 x10*6/UL 4.2 0-6.30 [facility] MCV 93.3 fL 80.0-97.0 [facility] Hemoglobin [Mass/volume] in Blood 13.3 g/dL 12.0-18.0 [facility] Hematocrit [Volume Fraction] of Blood by Automated count 39.7 % 3 7.0-51.0 [facility] MCHC 33.5 g/dL 31.0-38.0 [facility] MCH 31.3 pg 26.0-32.0 [facility] ([facility]) Platelets [#/volume] in Blood by Automated count 219 x10*3/UL 140-440 [facility] Erythrocyte distribution width [Ratio] by Automated count 14.2 % 11.6-13.7 [facility] ([facility]) Lymph % 33.2 % 10.0-58.5 [facility] MPV 7.1 FL 7.8-11.0 [facility] ([facility]) Mid % 6.6 % 1.7-9.3 [facility] ([facility]) Lymph # 1.3 x10*3/UL 0.6-4.1 [facility] ([facility]) Neut % 60.2 % 37.0-92.0 [facility] Mid # 0.3 x10*3/UL 0.1-0.6 [facility] ([facility]) Neut # 2.3 x10*3/UL 2.0-7.8 [facility] ([facility]) ID Date Data Source [id number] 07/30/2020 04:43:00 PM EDT [facility] Name Value Range Interpretation Code Description Data Gina rce(s) Supporting Document(s) Laboratory test finding (navigational concept) 41.0 % 38.0-51.0 [facility] ([facility]) Laboratory test finding (navigational concept) 69 mg/dL 70-105 [facility] ([facility]) Laboratory test finding (navigational concept) 139 meq/L 136-145 [facility] ([facility]) Laboratory test finding (navigational concept) 101 meq/L 98-109 [facility] ([facility]) Laboratory test finding (navigational concept) 4.1 meq/L 3.5-5.1 [facility] ([facility]) Laboratory test finding (navigational concept) 5.4 mg/dL 4.5-5.3 [facility] ([facility]) Laboratory test finding (navigational concept) 31.0 MM/L 23.0-27.0 [facility] ([facility]) Laboratory test finding (navigational concept) 0.7 mg/dL 0.6-1.3 [facility] ([facility]) Laboratory test finding (navigational concept) 17 mg/dL 8-26 [facility] ([facility]) ID Date Data Source [id number] 07/30/2020 04:40:00 PM EDT [facility] ([facility]) Name Value Range Interpretation Code Description Data Gina rce(s) Supporting Document(s) Laboratory test finding (navigational concept) 0.49 0.4-2.0 [facility] ([facility]) ID Date Data Source [id number] 07/30/2020 04:38:00 PM EDT [facility] ([facility]) Name Value Range Interpretation Code Description Data Gina rce(s) Supporting Document(s) White Blood Count 5.8 10 4.0-10.0 [facility] ([facility]) Hemoglobin 13.6 g/dL 12.0-15.5 [facility] ([facility]) Red Blood Count 4.26 10 4.00-5.40 [facility] ([facility]) Hematocrit 41.5 % 36.0-47.0 [facility] Mean Corpuscular Volume 97.4 fl 80.0-96.0 [facility] ([facility]) Mean Corpuscular Hemoglobin 31.9 pg 27.0-33.0 [facility] ([facility]) Mean Corpuscular HGB Conc 32.8 g/dL 32.0-36.5 [facility] ([facility]) Red Cell Distribution Width 13.2 % 11.5-14.5 [facility] ([facility]) Neutrophils % 59.9 % 36.0-66.0 [facility] ([facility]) Platelet Count, Automated 253 10 150-450 [facility] ([facility]) Lymph % 26.8 % 24.0-44.0 [facility] Pope % 8.1 % 2.0-8.0 [facility] Eos % 3.9 % 0.0-3.0 [facility] Baso % 1.0 % 0.0-1.0 [facility] Nucleated Red Blood Cell % 0.0 % 0-0 [facility] ([facility]) Immature Granulocyte % 0.3 % 0-3.0 [facility] ([facility]) Neutrophils # 3.5 10 1.5-8.5 [facility] ([facility]) Lymph # 1.6 10 1.5-5.0 [facility] Pope # 0.5 10 0.0-0.8 [facility] Eos # 0.2 10 0.0-0.5 [facility] Baso # 0.1 10 0.0-0.2 [facility] ID Date Data Source [id number] 07/30/2020 12:07:00 PM EDT [facility] ([facility]) Name Value Range Interpretation Code Description Data Gina rce(s) Supporting Document(s) Lipoprotein lipase [Enzymatic activity/volume] in Serum or Plasm a 93 U/L 73-393 [facility] ([facility]) Helicobacter pylori IgG Ab [Presence] in Serum or Plas ma by Immunoassay Laboratory test result [facility] ([facility]) SERUM SAMPLES OBTAINED TOO EARLY DURING INFECTION MAY NOT CONTAIN DETECTABLE ANTIBODIES. IF H. PYLORI INFECTION IS SUSPECTED WITH A "NEGATIVE" SERUM RESULT, A FOLLOW UP SPECIMEN IS RECOMMENDED IN 2-7 WEEKS. ID Date Data Source [id number] 07/30/2020 12:06:00 PM EDT [facility] ([facility]) Name Value Range Interpretation Code Description Data Gina rce(s) Supporting Document(s) Urine Color Laboratory test result [facility] ([facility]) Urine PH 6.5 units 5.0-9.0 [facility] Urine Appearance Laboratory test result [facility] ([facility]) Urine Leukocytes Laboratory test result [facility] Specific gravity of Urine 1.015 1.005-1.030 [facility] ([facility]) Urine Blood Laboratory test result [facility] ([facility]) Urine Protein Laboratory test result 0-0 [facility] ([facility] Urine Ketone Laboratory [facility]) Urine Nitrite Laboratory test result [facility] ([facility]) Glucose [Presence] in Urine Laboratory test result [facility] ([facility]) Urine Urobilinogen 0.2 mg/dL 0.2-1.0 [facility] ([facility]) Bilirubin.total [Mass/volume] in Serum or Plasma Laboratory test resu lt [facility] ID Date Data Source [id number] 07/30/2020 12:06:00 PM EDT [facility] ([facility]) Name Value Range Interpretation Code Description Data Gina rce(s) Supporting Document(s) Glucose [Mass/volume] in Serum or Plasma 80 mg/dL 74-99 [facility] ([facility]) 100-125 mg/dL PRE-DIABETES/FASTING >126 mg/dL DIABETES/FASTING Sodium [Moles/volume] in Serum or Plasma 141 meq/L 136-145 [facility] ([facility]) Urea nitrogen [Mass/volume] in Serum or Plasma 18 mg/dL 7-18 [facility] ([facility]) Creatinine 0.8 mg/dL 0.6-1.3 [facility] ([facility]) Potassium [Moles/volume] in Serum or Plasma 4.6 meq/L 3.5-5.1 [facility] ([facility]) Chloride [Moles/volume] in Serum or Plasma 103 meq/L 98-107 [facility] ([facility]) Carbon dioxide, total [Moles/volume] in Serum or Plasma 30 meq/L 21 -32 [facility] ([facility]) Calcium [Mass/volume] in Serum or Plasma 9.7 mg/dL 8.5-10.1 [facility] ([facility]) Aspartate aminotransferase [Enzymatic activity/volume] in Serum or Plasma 18 U/L 15-37 [facility] ([facility] ) Total Bilirubin 0.5 mg/dL 0.2-1.0 [facility] ([facility]) Alkaline phosphatase isoenzyme [Units/volume] in Serum or Pl asma 65 mg/dL 46-116 [facility] ([facility]) Albumin [Mass/volume] in Serum or Plasma 3.8 g/dL 3.4-5.0 [facility] ([facility]) Proteinase 3 Ab [Units/volume] in Serum 7.0 g/dL 6.4-8.2 [facility] ([facility]) Alanine aminotransferase [Enzymatic activity/volume] in Seru m or Plasma 24 U/L 12-78 [facility] ([facility]) A/G Ratio 1.19 CALC 1.00-1.90 [facility]) Glomerular filtration rate/1.73 sq M pre dicted among non-blacks [Volume Rate/Area] in Serum or Plasma by Creatinine-based formula (MDRD) Laboratory test result [facility] ([facility] ) Glomerular filtration rate/1.73 sq M pre dicted among blacks [Volume Rate/Area] in Serum or Plasma by Creatinine-based formula (MDRD) Laboratory test result [facility] <content>CHRONIC KIDNEY DISEASE STAGING PER NKF</content>
<content></content>
<content>STAGE I & II GFR >= 60 NORMAL TO MILDLY DECREASED</content>
<content>STAGE III GFR 30-59 MODERATELY DECREASED</content>
<content>STAGE IV GFR 15-29 SEVERELY DECREASED</content>
<content>STAGE V GFR <15 VERY LITTLE GFR LEFT</content>
<content>ESRD GFR <15 ON BALL SORTER</content>
<content></content> ID Date Data Source [id number] 07/30/2020 12:06:00 PM EDT [facility] ([facility]) Name Value Range Interpretation Code Description Data Gina rce(s) Supporting Document(s) Leukocytes [#/volume] in Blood by Automated count 4.9 x10*3/UL 4.1-10 .9 [facility] ([facility]) Erythrocytes [#/volume] in Blood by Automated count 4.04 x10*6/UL 4.2 0-6.30 [facility] ([facility]) Hematocrit [Volume Fraction] of Blood by Automated count 37.1 % 3 7.0-51.0 [facility] ([facility]) Hemoglobin [Mass/volume] in Blood 12.9 g/dL 12.0-18.0 [facility] ([facility]) MCV 91.8 fL 80.0-97.0 [facility] MCH 32.0 pg 26.0-32.0 [facility] Erythrocyte distribution width [Ratio] by Automated count 13.6 % 11.6-13.7 [facility] ([facility]) MCHC 34.8 g/dL 31.0-38.0 [facility] Platelets [#/volume] in Blood by Automated count 277 x10*3/UL 140-440 [facility] ([facility]) MPV 7.2 FL 7.8-11.0 [facility] Lymph % 26.4 % 10.0-58.5 [facility] Mid % 5.9 % 1.7-9.3 [facility] Neut % 67.7 % 37.0-92.0 [facility] Lymph # 1.3 x10*3/UL 0.6-4.1 [facility] ([facility]) Mid # 0.3 x10*3/UL 0.1-0.6 [facility] ([facility]) Neut # 3.3 x10*3/UL 2.0-7.8 [facility] ([facility]) Procedure Social History Code Duration Value Status Description Data Source(s ) Smoking 01/09/2021 12:00:00 AM EDT Patient is a former smoker completed Patient is a former smoker [facility] ([facility]) Vital Signs ID Date Data Source UNK Name Value Range Interpretation Code Description Data Source(s) Body height 64 [in_i] 64 [in_i] [facility] ([facility] 5'4" Body weight 189.00 [lb_av] 189.00 [lb_av] [facility] ([facility]) Body mass index (BMI) [Ratio] 32.4 kg/m2 32.4 k g/m2 [facility] ([facility]) Systolic blood pressure 138 mm[Hg] 138 mm[Hg] M [facility] ([facility]) Diastolic blood pressure 78 mm[Hg] 78 mm[Hg] [facility] ([facility]) Heart rate 66 /min 66 /min [facility] ([facility]) Systolic blood pressure 140 mm[Hg] 140 mm[Hg] M [facility] ([facility]) Diastolic blood pressure 76 mm[Hg] 76 mm[Hg] [facility] ([facility]) Systolic blood pressure 125 mm[Hg] 125 mm[Hg] M [facility] ([facility]) Diastolic blood pressure 70 mm[Hg] 70 mm[Hg] [facility] ([facility]) Heart rate 70 /min 70 /min [facility] ([facility]) Body height 64 [in_i] 64 [in_i] [facility] ([facility] 5'4" Body weight 188.00 [lb_av] 188.00 [lb_av] [facility] ([facility]) Body mass index (BMI) [Ratio] 32.3 kg/m2 32.3 k g/m2 [facility] ([facility]) Body weight 191.00 [lb_av] 191.00 [lb_av] [facility] ([facility]) Body mass index (BMI) [Ratio] 34.1 kg/m2 34.1 k g/m2 [facility] ([facility]) Body surface area Derived from formula 1.89 m2 1.89 m2 [facility] ([facility]) Diastolic blood pressure 76 mm[Hg] 76 mm[Hg] [facility] ([facility]) Body height 62.75 [in_i] 62.75 [in_i] [facility] ([facility]) 5'2.75" Systolic blood pressure 136 mm[Hg] 136 mm[Hg] M [facility] ([facility]) Systolic blood pressure 140 mm[Hg] 140 mm[Hg] [facility] ([facility]) Diastolic blood pressure 76 mm[Hg] 76 mm[Hg] [facility] ([facility]) Heart rate 68 /min 68 /min [facility] ([facility]) Body height 64 [in_i] 64 [in_i] [facility] ([facility] 5'4" Body weight 191.00 [lb_av] 191.00 [lb_av] [facility] ([facility]) Body mass index (BMI) [Ratio] 32.8 kg/m2 32.8 k g/m2 [facility] ([facility]) Systolic blood pressure 136 mm[Hg] 136 mm[Hg] M [facility] ([facility]) Diastolic blood pressure 74 mm[Hg] 74 mm[Hg] [facility] ([facility]) Heart rate 80 /min 80 /min [facility] ([facility]) Body height 64 [in_i] 64 [in_i] [facility] ([facility] 5'4" Body weight 180.00 [lb_av] 180.00 [lb_av] [facility] ([facility]) Oxygen saturation in Arterial blood by Pulse oximetry 97 % 97 % [facility] ([facility]) Body mass index (BMI) [Ratio] 30.9 kg/m2 30.9 k g/m2 [facility] ([facility]) Heart rate 73 /min 73 /min [facility] ([facility]) Systolic blood pressure 140 mm[Hg] 140 mm[Hg] M [facility] ([facility]) Diastolic blood pressure 72 mm[Hg] 72 mm[Hg] [facility] ([facility]) Diastolic blood pressure 80 mm[Hg] 80 mm[Hg] [facility] ([facility]) Oxygen saturation in Arterial blood by Pulse oximetry 96 % 96 % [facility] ([facility]) RM Air Systolic blood pressure 138 mm[Hg] 138 mm[Hg] M [facility] ([facility]) Respiratory rate 16 /min 16 /min [facility] ( [facility]) Body height 64 [in_i] 64 [in_i] [facility] ([facility] 5'4" Body weight 179.50 [lb_av] 179.50 [lb_av] MERCEDES Peñaloza ([facility]) Body mass index (BMI) [Ratio] 30.8 kg/m2 30.8 k g/m2 ERIKA ([facility])
--- OUTSIDE RECORDS SUMMARY | 2021-03-21 06:17 | CCD | Continuity of Care Document ---
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 AUTM [phone] Problems Active Problems Provider Date Hypertensive disorder Carlota Lay MD Onset: 08/31/2015 Social History Type Date Description Comments Sex Unknown Tobacco Use Start: Unknown End: Unknown Quit ETOH Use Non-smoker, Occasional Drinker, Non-drug User Tobacco Use Start: Unknown End: Unknown Patient is a former smoker Smoking Status Reviewed: 01/09/21 Patient is a former smoker Exercise Type/Frequency Exercises regularly Allergies, Adverse Reactions, Alerts Active Allergies Criticality Reaction | Severity Comments Date Cephalosporins Unable to assess criticality 08/31/2015 Medications Active Medications SIG Qnty Indications Ordering Provide r Date Trospium Chloride 20mg Tablets 1 by mouth twice a day 180tabs Carlota Lay MD 10/14/2019 Trospium Chloride ER 60mg Caps ER 24HR 1 by mouth every day 90caps Carlota Lay MD 08/13/2016 Synthroid 175mcg Tablets Unknown Sertraline HCL 150mg Tablets Unknown Simvastatin 20mg Tablets Unknown Omeprazole 40mg Capsules DR Unknown Alprazolam 0.25mg Tablets Dispers Unknown Multi-Vitamin Tablets Unknown C-Estradiol 0.1mg/GM Cream use small amount to vulva nightly as directed Kate Lay MD Immunizations Description No Information Available Vital Signs Date Vital Result Comment 01/09/2021 11:43am BP Systolic 136 mmHg BP Diastolic 76 mmHg Height 62.75 inches 5'2.75" Weight 191.00 lb BMI (Body Mass Index) 34.1 kg/m2 BSA (Body Surface Area) 1.89 m2 01/18/2020 2:19pm BP Systolic 148 mmHg BP Diastolic 68 mmHg Results Test Acquired Date Facility Test Result H/L Range Note Thinprep W/Reflex HR HPV If Asc-US 01/09/2021 Propa th TP Reflex HPV ASCUS Normal Normal 1 TP Reflex HPV ASCUS SEE IMAGE 1 SPECIME N PART A. Vaginal, ThinPrep Pap ([place] [facility]) CYTOLOGY HX-------- Other Information: Hysterectomy Previous Normal Pap: 01/07/19 FINAL DIAGNOSIS---- INTERPRETATION: Negative for Intraepithelial Lesion or Malignancy. SPECIMEN ADEQUACY:Satisfactory for evaluation. ADDITIONAL FINDINGS:Atrophic pattern. Procedures Date Code Description Status 01/09/2021 28273 Office/Outpatient Established Mo d MDM 30-39 Min Completed 02/09/2019 [id number] Mammogram Completed 01/13/2018 [id number] Mammogram Completed 01/21/2017 008052675 Bone Mineral Density Test Comple Siemens Description No Information Available Encounters Type Date Location Provider Dx Diagnosis Office Visit 01/09/2021 12:15p [facility] business specialist Carlota Lay MD N3 2.81 Overactive bladder N39.41 Urge incontinence Z12.4 Encounter for screening for malignant neoplasm of cervix Z12.39 Encounter for oth screening for malignant neoplasm of breast Assessments Date Code Description Provider 01/09/2021 N32.81 Overactive bladder Ivan Lay i, MD 01/09/2021 N39.41 Urge incontinence Carlota Lay MD 01/09/2021 Z12.4 Encounter for screening for jordi gnant neoplasm of cervix Carlota Lay MD 01/09/2021 Z12.39 Encounter for other screening for malignant neoplasm of breast Carlota Lay MD Plan of Treatment Future Appointment(s):* 04/09/2021 11:00 am - Carlota Lay MD at [facility] e business specialist * 03/26/2021 10:00 am - Carlota Lay MD at [facility] e business specialist * 03/28/2021 9:00 am - Carlota Lay MD at [facility] * 03/21/2021 9:00 am - Carlota Lay MD at [facility] * 01/17/2022 2:00 pm - Carlota Lay MD at [facility] e business specialist 01/09/2021 - Carlota Lay MD* N32.81 Overactive bladder * N39.41 Urge incontinence * Z12.4 Encounter for screening for malignant neoplasm of cervix * Z12.39 Encounter for other screening for malignant neoplasm of breast Functional Status Description No Information Available Mental Status Description No Information Available Referrals Description No Information Available
--- OUTSIDE RECORDS SUMMARY | 2021-03-21 06:17 | CCD | Continuity of Care Document ---
Author Author Jane LAY Organization Unknown Address [address] [place] [address] Phone [phone] Care Team Providers Care Chemist Pharmaceutical Name Role Phone Mindy Tenorio NP AUTM [phone] Hari Morales M.D. AUTM [phone] Problems Active Problems Provider Date Hypertensive disorder [...] 148 mmHg BP Diastolic 68 mmHg Results Description No Information Available Procedures Date Code Description Status 01/09/2021 31745 Office/Outpatient Established Mo d MDM 30-39 Min Completed 02/09/2019 [id number] Mammogram Completed 01/13/2018 [id number] Mammogram Completed 01/21/2017 [id number] Bone Mineral Density Test Comple [employer] Description No Information Available Encounters Type Date Location Provider Dx Diagnosis Office Visit 01/09/2021 12:15p [facility] resident care provider Carlota Lay MD N3 2.81 Overactive bladder [...] 11:00 am - Carlota Lay MD at [facility] resident care provider * 03/26/2021 10:00 am - Carlota Lay MD at [facility] resident care provider * 03/28/2021 9:00 am - [facility] * 03/21/2021 9:00 am - [facility] * 01/17/2022 2:00 pm - Carlota Lay MD at [facility] resident care provider 01/09/2021 - Carlota Lay MD* N32.81 Overactive bladder * N39.41 Urge incontinence * Z12.4 Encounter for screening for malignant neoplasm of cervix* New Labs:* Thinprep W/Reflex HR HPV If Asc-US, Ordered: 01/09/21 * Z12.39 Encounter for other screening for malignant neoplasm of breast Functional Status Description No Information Available Mental Status Description No Information Available Referrals Description No Information Available
--- OUTSIDE RECORDS SUMMARY | 2021-03-21 06:17 | CCD ---
Continuity of Care Document (CCD) Created on: 01/09/2021 Jane Winkler External Reference #: [id number] : [id number] Sex: Female Author Author Jane LAY Organization Unknown Address [address] [place] [address] Phone [phone] Care Team Providers Care Digital Composer Name Role Phone Mindy Tenorio NP AUTM [phone] Hari Morales M.D. AUTM [phone] Problems Active Problems Provider Date Hypertensive disorder Carlota Lay MD Onset: 08/31/2015 Social History Type Date Description Comments Sex Unknown Tobacco Use Start: Unknown End: Unknown Quit ETOH Use Non-smoker, Occasional Drinker, Non-drug User Tobacco Use Start: Unknown End: Unknown Patient is a former smoker Smoking Status Reviewed: 01/18/20 Patient is a former smoker Exercise Type/Frequency [...] Information Available Procedures Date Code Description Status 02/09/2019 [id number] Mammogram Completed 01/13/2018 [id number] Mammogram Completed 01/21/2017 [id number] Bone Mineral Density Test Comple Mesosphere Description No Information Available Encounters Description No Information Available Assessments Description No Information Available Plan of Treatment Future Appointment(s):* 01/17/2022 2:00 pm - Carlota Lay MD at [facility] director of casework department Functional Status Description No Information Available Mental Status Description No Information Available Referrals Description No Information Available
--- OUTSIDE RECORDS SUMMARY | 2021-03-21 06:17 | CCD | Continuity of Care Document ---
Author Author Lab Schedule, Jane Gao Organization Unknown Address [address] [place] [address] Phone Unavailable Care Team Providers Care Appliance Technician Name Role Phone Hari Morales MD AUTM [phone] Carlota Perea MD AUTM [phone] [facility] AUTM [phone] Problems Active Problems Provider Date Backache Onset: [...] CPT Code Status Date Vaccine Lot # [id number] Given 02/09/2020 Influenza Vaccin e Quadrivalent Preser/Antibiotic Free Im Use [id number] 47158 Given 02/10/2019 Influenza Vaccin e Quadrivalent Preser/Antibiotic Free Im Use 139877 07231 Given 02/18/2018 Influenza Virus Vaccine, Quadrivalent (Cciiv4), Derived From 9 Given 02/19/2017 Influenza Vaccin e Quadrivalent Preser/Antibiotic Free Im Use [id number] Q2037 Given 02/13/2016 Fluvirin Virus Vaccine 39855 01 Q2037 Given 03/05/2015 Fluvirin Virus Vaccine 80309 60261 Given 03/07/2014 Influenza Virus Vaccine 83596 Given 08/08/2013 Pneumovax 23 15486 Given 02/14/2013 Influenza Virus Vaccine 26149 Given 03/04/2012 Influenza Virus Vaccine 94118 Given 02/19/2011 Influenza Virus Vaccine 53327 Given 10/02/2010 Zoster Vaccine 04591 Given 04/18/2010 Adacel- Tetanus Diphtheria P ertussis 10716 Given 02/27/2010 Influenza Virus Vaccine 40762 Given 04/10/1999 Hepatitis B Rey Adoles For I ntramuscular Use 02699 Given 04/10/1999 Hepatitis A Vaccine Adult Do [...] Result H/L Range Note Complete Blood Count 09/10/2020 [facility] Paramedic Rn: [place] [address] [phone] WBC 3.9 x10*3/UL Low 4.1 - 10.9 [...] 2.0 - 7.8 Comprehensive Chem Profile 09/10/2020 [facility] Paramedic Rn: Dr Kehind[place] [address] [phone] Glucose 83 mg/dL 74 - 99 1 BUN 23 mg/dL High 7 - 18 [...] >= 60 mL/min >60 2 Lipid Profile 09/10/2020 [facility] Paramedic Rn: Dr Kehinde [place] [id number] [phone] Cholesterol 201 mg/dL High 131 - 200 Triglycerides 46 mg/dL 30 - 150 HDL Cholesterol 95 mg/dL High 35 - 60 LDL (Calculated) 97 CALC 50 - 159 Laboratory test finding 09/10/2020 [facility] Paramedic Rn: Dr Kehinde [place] [address] [phone] Thyroid Stimulating Hormone 3.10 uIU/mL 0.3 6 - 3.74 Laboratory test finding 09/10/2020 [facility] Paramedic Rn: Dr Kehinde [place] [address] [phone] T4 Free 0.76 ng/dL 0.76 - 1.46 Istat Chem8+ Panel 07/30/2020 [facility] nter [address] [place] [address] [phone] iSTAT HCT 41.0 % Normal 38.0-51.0 iSTAT Glucose 69 mg/dL Low 70-105 iSTAT Sodium 139 mEq/L Normal 136-145 iSTAT Potassium 4.1 mEq/L Normal 3.5-5.1 iSTAT CA++ 5.4 mg/dL High 4.5-5.3 iSTAT Chloride 101 mEq/L Normal 98-109 iSTAT Co2 31.0 MM/L High 23.0-27.0 iSTAT BUN 17 mg/dL Normal 8-26 iSTAT Creatinine 0.7 mg/dL Normal 0.6-1.3 Laboratory test finding 07/30/[address] [address] [phone] iSTAT Lactate 0.49 Normal 0.4-2.0 CBC With Differential 07/30/[address] [address] [phone] White Blood Count 5.8 10 Normal 4.0-10.0 [...] 36.0-66.0 Lymph % 26.8 % Normal 24.0-44.0 Maury % 8.1 % High 2.0-8.0 Eos % 3.9 % High 0.0-3.0 Baso % 1.0 % Normal 0.0-1.0 Immature Granulocyte % 0.3 % Normal 0-3.0 Nucleated Red Blood Cell % 0.0 % Normal 0-0 Neutrophils # 3.5 10 Normal 1.5-8.5 Lymph # 1.6 10 Normal 1.5-5.0 Maury # 0.5 10 Normal 0.0-0.8 Eos # 0.2 10 Normal 0.0-0.5 Baso # 0.1 10 Normal 0.0-0.2 Laboratory test finding 07/30/2020 [facility] [address] [place] [address] [phone] Lipase 93 U/L Normal 73-393 H Pylori Qualitative Igg NEGATIVE Normal Negative 3 Complete Blood Count 07/30/2020 [facility] Paramedic Rn: [place] [address] [phone] WBC 4.9 x10*3/UL 4.1 - 10.9 RBC [...] 2.0 - 7.8 Comprehensive Chem Profile 07/30/2020 [facility] Paramedic Rn: [place] [address] [phone] Glucose 80 mg/dL 74 - 99 4 BUN 18 mg/dL 7 - 18 Creatinine [...] mL/min >60 GFR >= 60 mL/min >60 5 Ua Dipstick Only 07/30/2020 [facility] Paramedic Rn: [place] [address] [phone] Urine Color YELLOW Yellow Urine Appearance CLEAR Clear Urine PH 6.5 units 5.0 - 9.0 Urine Specific [place] 1.015 1.005 - 1.030 Urine Leukocytes NEGATIVE [...] LITTLE GFR LEFT ESRD GFR <15 ON LITHOGRAPHED PLATE INSPECTOR 3 SERUM SAMPLES OBTAINED TOO E JACQUELINE DURING INFECTION MAY NOT CONTAIN DETECTABLE ANTIBODIES. IF H. PYLORI INFECTION IS SUSPECTED WITH A "NEGATIVE" SERUM RESULT, A FOLLOW UP SPECIMEN IS RECOMMENDED IN 2-7 WEEKS. 4 100-125 mg/dL PRE-DIABET ES/FASTING >126 mg/dL DIABETES/FASTING 5 CHRONIC KIDNEY DISEASE STAGI NG PER NKF STAGE I & II GFR >= 60 NORMAL TO MILDLY DECREASED STAGE III GFR 30-59 MODERATELY DECREASED STAGE IV GFR 15-29 SEVERELY DECREASED STAGE V GFR <15 VERY LITTLE GFR LEFT ESRD GFR <15 ON LITHOGRAPHED PLATE INSPECTOR Procedures Date Code Description Status 09/11/2020 68679 Office/Outpatient Established Mo d MDM 30-39 Min Completed 07/30/2020 90442 Office/Outpatient Established Lo w MDM 20-29 Min Completed 07/30/2020 66815 EKG/Interpretation & Report Comp leted 08/20/2019 [id number] Diabetic Retinal Eye Exam Comple parris 08/19/2019 [id number] Diabetic Retinal Eye Exam Comple parris 08/18/2019 [id number] Diabetic Retinal Eye Exam Comple parris 08/16/2019 [id number] Diabetic Retinal Eye Exam Comple parris 02/09/2019 [id number] Mammogram Completed 03/26/2017 [id number] Colonoscopy Completed 12/18/2015 [id number] Mammogram Completed 12/18/2011 [id number] Colonoscopy Completed Medical Devices Description No Information Available Encounters Type Date Location Provider Dx Diagnosis Office Visit 09/11/2020 1:30p [facility] Morales M.D. 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 at [facility] 09/11/2020 - Hari Morales M.D.* E78.00 Pure [...]
[2021-03-21] MEDS ORDERED: LIDOCAINE 1% SDV 30ML VIAL As Ordered ONE (07:14)
[2021-03-21] MEDS ORDERED: propofoL 200 MG/20 ML VIAL As Ordered ONE (07:17)
[2021-03-21] MEDS ORDERED: LIDOCAINE 2% 100MG/5ML SDV (FOR ANES.) As Ordered ONE (07:17)
[2021-03-21] MEDS ORDERED: MIDAZOLAM INJ 2MG/2ML VIAL (J2250 PER 1MG) As Ordered ONE (07:18)
[2021-03-21] MEDS ORDERED: fentaNYL 100 MCG/2 ML INJECTION (J3010) As Ordered ONE (07:18)
[2021-03-21] MEDS ORDERED: VANCOMYCIN 1000MG/20ML VIAL As Ordered ONE (07:31)
[2021-03-21 09:45] VITALS: BP 183/80
--- NOTE | 2021-03-21 10:49 | RO ---
OPERATIVE NOTE DATE OF OPERATION: 03/21/2021 PREOPERATIVE DIAGNOSIS/INDICATION FOR SURGERY: Incontinence. POSTOPERATIVE DIAGNOSIS: Incontinence. PROCEDURE: Stage 1 InterStim. SURGEON: Carlota Perea MD TUMBLER DYEING MACHINE OPERATOR: ANESTHESIA: Sedation and local. BRIEF DESCRIPTION OF PROCEDURE AND FINDINGS: Jane was brought to the operating room where sufficient sedation was given. She was prepped and positioned in the usual fashion, prone as is typical for these cases. We then measured out the typical anatomy numbed with Lidocaine and then placed a left-sided needle. The patient has a very sharp curve to her sacrum and the first needle was into the second foramen that was left in place as a gypsy and we put one into the third. We had good response on the needle but then after dilating the channel and placing the lead, we had horrible response on the lead and decided to go ahead and test on the right side. We had tested on the right side already and decided that the left side had a better response but we went back over to the right side and we were able to place a lead there that had response at all force of the channels and thus, we used that right sided lead and then using x-rays, documented the appropriate placement and we then channeled the lead out to connector site where a small incision had been made to make a pocket in the right upper buttock/lower back and then channeled out to the flank, came back with the investment banker which was connected. The pocket was irrigated, confirmed to be having good hemostasis. The patient did bruise easily at the skin. She had small varicosities in the skin that bruised with the placements but with pressure, those stopped oozing and the two wounds over the sacrum were both closed with 3-0 Vicryl. The pocket was closed in a deep layer of 2-0 Vicryl, the skin was closed with 3-0 and then a 3-0 Vicryl was placed to secure the investment banker on the flank as well. Dry sterile dressings were applied and of course, the temporary generator placed and programming done today. The procedure was ended. ESTIMATED BLOOD LOSS: 8 mL. FLUID REPLACEMENT: Crystalloid. COMPLICATIONS: None. CONDITION AND DISPOSITION: Jane tolerated the procedure well despite having to test leads on both right and left side and she was recovering in the recovery room in good condition.
--- NOTE | 2021-03-21 14:07 | REP ---
INDICATION: NEUROSTIM STAGE 1. COMPARISON: None. TECHNIQUE: Two C-arm views pelvis. FINDINGS: Radiopaque lead is visualized with its tip in the posterior right pelvis. IMPRESSION: 49 seconds fluoroscopy time utilized. <Electronically signed by Ron West > 03/21/21 1070
== END 2021-03-21 10:23 | disposition home or self-care (01) ==
LOC: M SDC 06:12
PROVIDERS: ATTEND Obstetrics & Gynecology
DX: R32 Unspecified urinary incontinence (principal); E03.9 Hypothyroidism, unspecified; K21.9 Gastro-esophageal reflux disease without esophagitis; Z87.891 Personal history of nicotine dependence; F41.9 Anxiety disorder, unspecified; F32.9 Major depressive disorder, single episode, unspecified; Z86.73 Personal history of transient ischemic attack (TIA), and cerebral infarction without residual deficits; Z88.5 Allergy status to narcotic agent; Z88.1 Allergy status to other antibiotic agents; Z79.899 Other long term (current) drug therapy
CPT/HCPCS: 64561; 76000; C1883; C1897; J2250; J3010; J3370

== ENCOUNTER → 2021-03-23 | Outpatient (CLI) | payer MEDICARE, BC ==
[~2021-03-23] MED LIST changes: -LIDOCAINE 1% MDV 20ML VIAL SQ PRN; -LR 1,000 ML IV ONE; -VANCOMYCIN HCL 1,000 MG, VIAL MATE ADAPTER 1 EACH in NS 250 ML IV ONE
== END ==
LOC: M LABSMTC 08:54
PROVIDERS: ATTEND Anesthesiology
DX: Z01.818 Encounter for other preprocedural examination (principal); Z11.52 Encounter for screening for COVID-19

== ENCOUNTER 2021-03-28 06:03 | Day surgery (SDC) | payer MEDICARE, BC ==
[~2021-03-28] VITALS: Ht 160 cm; Wt 87.0 kg
[~2021-03-28 06:03] MED LIST changes: +LR 1,000 ML IV ONE; +VANCOMYCIN HCL 1,000 MG, VIAL MATE ADAPTER 1 EACH in NS 250 ML IV ONE
--- OUTSIDE RECORDS SUMMARY | 2021-03-28 06:13 | CCD | Continuity of Care Document ---
Author Author Jane LAY Organization Unknown Address [address] [place] [address] Phone [phone] Care Team Providers Care Meat Cutting Block Repairer Name Role Phone Mindy Tenorio NP AUTM [phone] Hari Morales M.D. AUTM [phone] Problems Active Problems Provider Date Hypertensive disorder Carlota Lay MD Onset: 08/31/2015 Social History Type Date Description Comments Sex Unknown Tobacco Use Start: Unknown End: Unknown Quit ETOH Use Non-smoker, Occasional Drinker, Non-drug User Tobacco Use Start: Unknown End: Unknown Patient is a former smoker Smoking Status Reviewed: 01/09/21 Patient is a former smoker Exercise Type/Frequency Exercises regularly Allergies and adverse reactions Active Allergies Criticality [...] 20mg Tablets Unknown Omeprazole 40mg Capsules DR Villa Alprazolam 0.25mg Tablets Dispers Unknown Multi-Vitamin Tablets [...] SPECIME N PART A. Vaginal, ThinPrep Pap (Building Admin) CYTOLOGY HX-------- Other Information: Hysterectomy Previous Normal Pap: 01/07/19 FINAL DIAGNOSIS---- INTERPRETATION: Negative for Intraepithelial Lesion or Malignancy. SPECIMEN ADEQUACY:Satisfactory for evaluation. ADDITIONAL FINDINGS:Atrophic pattern. Procedures Date Code Description Status 03/21/2021 17568 Neurostimulator Pulse Generator Brain/Spinal Cord First Hour Completed 03/21/2021 10218 Fluoroscopic guidanc e for needle placement (eg. Biopsy, aspiratio Completed 03/21/2021 42273 Insertion/Replacemen t Peripheral Neurostimulator Pulse Generator Completed 03/21/2021 02108 Implant Neuroelectrodes,Sacral N erve Completed 01/09/2021 81589 Office/Outpatient Established Mo d MDM 30-39 Min Completed 02/09/2019 [id number] Mammogram Completed 01/13/2018 [id number] Mammogram Completed 01/21/2017 769306531 Bone Mineral Density Test Comple [employer] Description No Information Available Encounters Type Date Location Provider Dx Diagnosis Office Visit 01/09/2021 12:15p [facility] side laster staple Carlota Lay MD N3 2.81 Overactive bladder N39.41 Urge incontinence Z12.4 Encounter for screening for malignant neoplasm of cervix Z12.39 Encounter for oth screening for malignant neoplasm of breast Assessments Date Code Description Provider 03/21/2021 N32.81 Overactive bladder Ivan Lay i, MD 03/21/2021 N39.41 Urge incontinence Carlota Lay MD 01/09/2021 N32.81 Overactive bladder Ivan Lay i, MD 01/09/2021 N39.41 Urge incontinence Carlota Lay MD 01/09/2021 Z12.4 Encounter for screening for jordi gnant neoplasm of cervix Carlota Lay MD 01/09/2021 Z12.39 Encounter for other screening for malignant neoplasm of breast Carlota Lay MD Plan of Treatment Future Appointment(s):* 04/09/2021 11:00 am - Carlota Lay MD at [facility] side laster staple * 03/26/2021 10:00 am - Carlota Lay MD at [facility] side laster staple * 03/28/2021 9:00 am - Carlota Lay MD at [facility] * 01/17/2022 2:00 pm - Carlota Lay MD at [facility] side laster staple 01/09/2021 - Carlota Lay MD* N32.81 Overactive bladder * N39.41 Urge incontinence * Z12.4 Encounter for screening for malignant neoplasm of cervix * Z12.39 Encounter for other screening for malignant neoplasm of breast Functional Status Description No Information Available Mental Status Description No Information Available Referrals Description No Information Available
--- OUTSIDE RECORDS SUMMARY | 2021-03-28 06:13 | CCD | Continuity of Care Document ---
Author Author Jane LAY Organization Unknown Address [address] [place] [address] Phone [phone] Care Team Providers Care Sales Route Driver Helper Name Role Phone Mindy Tenorio NP AUTM [phone] Hari Morales M.D. AUTM [phone] Problems Active Problems Provider Date Hypertensive disorder Carlota Lay MD Onset: 08/31/2015 Social History Type Date Description Comments Sex Unknown Tobacco Use Start: Unknown End: Unknown Quit ETOH Use Non-smoker, Occasional Drinker, Non-drug User Tobacco Use Start: Unknown End: Unknown Patient is a former smoker Smoking Status Reviewed: 03/26/21 Patient is a former smoker Exercise Type/Frequency [...] SPECIME N PART A. Vaginal, ThinPrep Pap (School Laboratory Technician) CYTOLOGY HX-------- Other Information: Hysterectomy Previous Normal Pap: 01/07/19 FINAL DIAGNOSIS---- INTERPRETATION: Negative for Intraepithelial Lesion or Malignancy. SPECIMEN ADEQUACY:Satisfactory for evaluation. ADDITIONAL FINDINGS:Atrophic pattern. Procedures Date Code Description Status 03/21/2021 59901 Neurostimulator Pulse Generator Brain/Spinal Cord First Hour Completed 03/21/2021 42223 Fluoroscopic guidanc e for needle placement (eg. Biopsy, aspiratio Completed 03/21/2021 79286 Insertion/Replacemen t Peripheral Neurostimulator Pulse Generator Completed 03/21/2021 04205 Implant Neuroelectrodes,Sacral N erve Completed 01/09/2021 82181 Office/Outpatient Established Mo d MDM 30-39 Min Completed 02/09/2019 [id number] Mammogram Completed 01/13/2018 [id number] Mammogram Completed 01/21/2017 [id number] Bone Mineral Density Test Comple Nolio Description No Information Available Encounters Type Date Location Provider Dx Diagnosis Office Visit 01/09/2021 12:15p [facility] chemical educator Carlota Lay MD N3 2.81 Overactive bladder [...] 11:00 am - Carlota Lay MD at [facility] chemical educator * 03/28/2021 9:00 am - Carlota Lay MD at [facility] * 01/17/2022 2:00 pm - Carlota Lay MD at [facility] chemical educator Functional Status Description No Information Available Mental Status Description No Information Available Referrals Description No Information Available
--- OUTSIDE RECORDS SUMMARY | 2021-03-28 06:14 | CCD ---
Author Author [facility] Organization [facility] Address Unknown Phone Unavailable Care Team Providers Care Foreign Diplomat Name Role Phone Carmela Morales MD Unavailable [...] White F Hari Unavailable Unavailable White F Harijaya MCINTOSH Unavailable Unavailable White F Hari Unavailable [...] is protected by Article 27-F of the [facility] Public Health law. If you continue you may have access to information: Regarding HIV / AIDS; Provided by facilities licensed or operated by the [facility] Office of Mental Health; or Provided by the [facility] Office for People With Developmental Disabilities. If such information is present, then the following [facility] mandated warning applies: This information has been [...] law may result in a fine or shelter sentence or both. A general authorization for the release of medical or other information is NOT sufficient authorization for further disc losure. 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 COVID-19 VACCINE Moderna 07/12/2020 12:00:00 AM EST [facility] Complete: NOThis Data was Submitted to [facility] [address]. Influenza, injectable, MDCK, preservative free, hanh valent 02/09/2020 11:39:00 AM EDT completed [facility] Medications Medication Brand Name Start Date Product Form Dose Route Admi nistrative Instructions Pharmacy Instructions Status Indications Reaction Description Data Source(s) 300 mg 03/15/2021 12:00:00 AM EDT capsule 120 TAKE ONE CAPSULE BY MOUTH FOUR TIMES A DAY TAKE ONE CAPSULE BY MOUTH FOUR TIMES A DAY SOLD: 03/18/2021 [facility] 0.05 % 03/03/2021 12:00:00 AM EDT ointment [...] 03/12/2020 12:00:00 AM EST ORAL active [facility] ([facility]) 300 mg 02/17/2020 12:00:00 AM EDT capsule 120 TAKE ONE CAPSULE BY MOUTH FOUR TIMES A DAY TAKE ONE CAPSULE BY MOUTH FOUR TIMES A DAY SOLD: 02/21/2020 [facility] Administration Of Flu Vaccine 02/09/2020 12:00:00 AM EDT completed [facility]) Medication administered onsite 20 mg 01/19/2020 12:00:00 [...] type / Coverage type Policy ID Covered republican ID Covered republican's relationship to husain Policy Husain Plan Information SONAL Man [facility] Part B [id number] Self Y [id number] EXCELLUS C [id number] Self [id number] EXCELLUS H [id number] Self [id number] BCBS EMPIRE [facility] [id number]/803 [id number] SP [id number] Medicare Natl Govt Servic Medicare Primary [id number] Self MEDICARE [id number] SP [id number] Medicare [place] Primary [id number] Self [id number] Medicare [place] Medicare Primary [id number] Self [id number] MEDICARE [id number] SP [id number] MEDICARE A [id number] Self [id number] U88 MEDICARE A [id number] Self [id number] A [facility] Jurisdiction A [facility] C [id number] SELF [id number] Medicare Natl Govt Servic Medicare Primary [id number] Self [id number] Medicare Natl Govt Servic Medicare Primary [id number] Self [id number] Medicare Natl Govt Servic Medicare Primary [id number] Self [id number] Medicare [place] Medicare Primary [id number] Self [id number] MEDICARE [id number] SP [id number] A Medicare C [id number] SELF [id number] U88 EXCELLUS H [id number] Self [id number] [place] 302/307 [id number] SP [id number] BLUE CARD C [id number] Self [id number] Blue Cross Blue Shield P [id number] SELF [id number] Blue Cross Blue Shield P [id number] SELF [id number] [place] 302/307 [id number] SP [id number] [place] MEDICARE DIVISION [id number] S [id number] BC/BS [place] Ppo Health Maintenance Organization (HMO) [id number] Self [id number] BCBS EXCELLUS [id number] S [id number] BS [place] Trad/[place] Medigap Part B [id number] Self [id number] MEDICARE C [id number] S [id number] A [place]BS [place] PPO 302/307 [id number] SP [id number] MEDICARE [id number] SP [id number] A BCBS EMPIRE [facility] 303/803 [id number] SP [id number] BS [place] Trad/MX Commercial [id number] Self [id number] BS [place] Trad/[place] Medigap Part B [id number] Self [id number] Medicare [place] Medicare Primary [id number] Self [id number] BS [place] Trad/MX Commercial [id number] Self [id number] MEDICARE - [place] [id number] S [id number] BLUE CROSS BLUE SHIELD -O/P [id number] 18 [id number] MEDICARE -O/P [id number] 18 [id number] EXCELLUS BCBS B [id number] S [id number] BC/BS Of [facility] Part B [id number] Self Medicare [place] Medicare Primary [id number] Self [place] MEDICARE DIVISION [id number] S [id number] BCBS EXCELLUS [id number] S [facility] [id number] EXCELLUS BCBS B [id number] S [facility] [id number] MEDICARE [id number] S [id number] BC/BS [place] Ppo Health Maintenance Organization (HMO) [id number] Self [id number] MEDICARE - [place] [id number] S [id number] Problems, Conditions, and Diagnoses No Information Surgeries/Procedures Procedure Description Date Indications Data Source(s) Implant Neuroelectrodes,Sacral Nerve 03/21/2021 12:00: 00 AM EST [facility] ([facility]) Insertion/Replacement Peripheral Neurostimulator Pulse Gener ator 03/21/2021 12:00:00 AM EST [facility] ([facility]) Fluoroscopic guidance for needle placement (eg. Biopsy, aspi ratio 03/21/2021 12:00:00 AM EST [facility] ([facility]) Neurostimulator Pulse Generator Brain/Spinal Cord First Hour 03/21/2021 12:00:00 AM EST [facility] ([facility]) OFFICE OUTPATIENT VISIT 25 MINUTES 01/09/2021 12:00:00 AM EDT [facility] ([facility]) OFFICE OUTPATIENT VISIT 25 MINUTES 09/11/2020 12:00:00 AM EDT [facility] ([facility]) ECG ROUTINE ECG W/LEAST 12 LDS W/I&R 07/30/2020 12:00: 00 AM EDT [facility] ([facility]) OFFICE OUTPATIENT VISIT 15 MINUTES 07/30/2020 12:00:00 AM EDT [facility] Results ID Date Data Source [id number] 03/16/2021 10:20:00 AM EDT [facility] Name Value Range Interpretation Code Description Data Gina rce(s) Supporting Document(s) SARS-CoV-2 (COVID-19) RNA [Presence] in Respiratory specimen by BENY with probe detection Not Detected [facility] This lab was ordered by [facility] and reported by [facility]. ID Date Data Source [id number] 03/08/2021 11:26:00 AM EDT [facility] ([facility]) Name Value Range Interpretation Code Description Data Gina rce(s) Supporting Document(s) Thyroxine (T4) free [Mass/volume] in Serum or Plasma 0.99 ng/dL 0.76- 1.46 [facility] ([facility]) ID Date Data Source [id number] 03/08/2021 11:26:00 AM EDT [facility] ([facility]) Name Value Range Interpretation Code Description Data Gina rce(s) Supporting Document(s) Thyrotropin [Units/volume] in Serum or Plasma by Detec tion limit <= 0.05 mIU/L 1.49 uIU/mL 0.36-3.74 [facility] ([facility] ) ID Date Data Source [id number] 03/08/2021 11:26:00 AM EDT [facility] ([facility]) Name Value Range Interpretation Code Description Data Gina rce(s) Supporting Document(s) Glucose [Mass/volume] in Serum or Plasma 88 mg/dL 74-99 [facility] ([facility]) 100-125 mg/dL PRE-DIABETES/FASTING >126 mg/dL DIABETES/FASTING Creatinine 0.6 mg/dL 0.6-1.3 [facility] Urea nitrogen [Mass/volume] in Serum or Plasma 19 mg/dL 7-18 [facility] ([facility]) Potassium [Moles/volume] in Serum or Plasma 5.1 meq/L 3.5-5.1 [facility] ([facility]) Sodium [Moles/volume] in Serum or Plasma 139 meq/L 136-145 [facility] ([facility]) Chloride [Moles/volume] in Serum or Plasma 103 meq/L 98-107 [facility] ([facility]) Glomerular filtration rate/1.73 sq M pre dicted among non-blacks [Volume Rate/Area] in Serum or Plasma by Creatinine-based formula (MDRD) Laboratory test result [facility] Carbon dioxide, total [Moles/volume] in Serum or Plasma 31 meq/L 21 -32 [facility] ([facility]) Calcium [Mass/volume] in Serum or Plasma 9.6 mg/dL 8.5-10.1 [facility] Glomerular filtration rate/1.73 sq M pre dicted among blacks [Volume Rate/Area] in Serum or Plasma by Creatinine-based formula (MDRD) Laboratory test result [facility] ([facility]) <content>CHRONIC KIDNEY DISEASE STAGING PER NKF</content>
<content></content>
<content>STAGE I & II GFR >= 60 NORMAL TO MILDLY DECREASED</content>
<content>STAGE III GFR 30-59 MODERATELY DECREASED</content>
<content>STAGE IV GFR 15-29 SEVERELY DECREASED</content>
<content>STAGE V GFR <15 VERY LITTLE GFR LEFT</content>
<content>ESRD GFR <15 ON WARRANT CLERK</content>
<content></content> ID Date Data Source [id number] 03/08/2021 11:26:00 AM EDT [facility] Name Value Range Interpretation Code Description Data Gina rce(s) Supporting Document(s) Leukocytes [#/volume] in Blood by Automated count 4.5 x10*3/UL 4.1-10 .9 [facility] ([facility]) Erythrocytes [#/volume] in Blood by Automated count 4.26 x10*6/UL 4.2 0-6.30 [facility]) MCV 92.0 fL 80.0-97.0 [facility]) Hemoglobin [Mass/volume] in Blood 13.3 g/dL 12.0-18.0 [facility] ([facility]) Hematocrit [Volume Fraction] of Blood by Automated count 39.2 % 3 7.0-51.0 [facility] ([facility]) MCH 31.1 pg 26.0-32.0 [facility] ([facility]) Erythrocyte distribution width [Ratio] by Automated count 13.2 % 11.6-13.7 [facility] ([facility]) MCHC 33.8 g/dL 31.0-38.0 [facility] ([facility]) MPV 7.0 FL 7.8-11.0 [facility] ([facility]) Platelets [#/volume] in Blood by Automated count 236 x10*3/UL 140-440 [facility] ([facility]) Lymph % 29.2 % 10.0-58.5 [facility] ([facility]) Mid % 6.1 % 1.7-9.3 [facility] ([facility]) Neut % 64.7 % 37.0-92.0 [facility] ([facility]) Lymph # 1.3 x10*3/UL 0.6-4.1 [facility] ([facility]) Neut # 2.9 x10*3/UL 2.0-7.8 [facility] ([facility]) Mid # 0.3 x10*3/UL 0.1-0.6 [facility] ([facility]) ID Date Data Source [id number] 01/25/2021 09:45:00 AM EDT [facility] ([facility]) Name Value Range Interpretation Code Description Data Gina rce(s) Supporting Document(s) Thyrotropin [Units/volume] in Serum or Plasma by Detec tion limit <= 0.05 mIU/L 4.31 uIU/mL 0.36-3.74 [facility] ([facility] ) ID Date Data Source [id number] 01/25/2021 09:45:00 AM EDT [facility] ([facility]) Name Value Range Interpretation Code Description Data Gina rce(s) Supporting Document(s) Cholesterol [Mass/volume] in Serum or Plasma 226 mg/dL 131-200 [facility] ([facility]) Cholesterol in HDL [Mass/volume] in Serum or Plasma 91 mg/dL 35-60 [facility] ([facility]) Triglyceride [Mass/volume] in Serum or Plasma 49 mg/dL 30-150 [facility] ([facility]) Cholesterol in LDL [Mass/volume] in Serum or Plasma by calcu lation 125 CALC 50-159 [facility] ([facility]) ID Date Data Source [id number] 01/25/2021 09:45:00 AM EDT [facility] ([facility]) Name Value Range Interpretation Code Description Data Gina rce(s) Supporting Document(s) Glucose [Mass/volume] in Serum or Plasma 92 mg/dL 74-99 [facility] ([facility]) 100-125 mg/dL PRE-DIABETES/FASTING >126 mg/dL DIABETES/FASTING Sodium [Moles/volume] in Serum or Plasma 141 meq/L 136-145 [facility] ([facility]) Creatinine 0.7 mg/dL 0.6-1.3 [facility] ([facility]) Urea nitrogen [Mass/volume] in Serum or Plasma 17 mg/dL 7-18 [facility] ([facility]) Potassium [Moles/volume] in Serum or Plasma 4.6 meq/L 3.5-5.1 [facility] ([facility]) Chloride [Moles/volume] in Serum or Plasma 104 meq/L 98-107 [facility] ([facility]) Calcium [Mass/volume] in Serum or Plasma 9.7 mg/dL 8.5-10.1 [facility] ([facility]) Carbon dioxide, total [Moles/volume] in Serum or Plasma 32 meq/L 21 -32 [facility] ([facility]) Aspartate aminotransferase [Enzymatic activity/volume] in Serum or Plasma 19 U/L 15-37 [facility] ([facility] ) Alkaline phosphatase isoenzyme [Units/volume] in Serum or Pl asma 67 mg/dL 46-116 [facility] ([facility]) Total Bilirubin 0.6 mg/dL 0.2-1.0 [facility] ([facility]) Albumin [Mass/volume] in Serum or Plasma 3.9 g/dL 3.4-5.0 [facility] ([facility]) Alanine aminotransferase [Enzymatic activity/volume] in Seru m or Plasma 29 U/L 12-78 [facility] ([facility]) A/G Ratio 1.26 CALC 1.00-1.90 [facility]) Proteinase 3 Ab [Units/volume] in Serum 7.0 g/dL 6.4-8.2 [facility] Glomerular filtration rate/1.73 sq M pre dicted among blacks [Volume Rate/Area] in Serum or Plasma by Creatinine-based formula (MDRD) Laboratory test result [facility] <content>CHRONIC KIDNEY DISEASE STAGING PER NKF</content>
<content></content>
<content>STAGE I & II GFR >= 60 NORMAL TO MILDLY DECREASED</content>
<content>STAGE III GFR 30-59 MODERATELY DECREASED</content>
<content>STAGE IV GFR 15-29 SEVERELY DECREASED</content>
<content>STAGE V GFR <15 VERY LITTLE GFR LEFT</content>
<content>ESRD GFR <15 ON WARRANT CLERK</content>
<content></content> Glomerular filtration rate/1.73 sq M pre dicted among non-blacks [Volume Rate/Area] in Serum or Plasma by Creatinine-based formula (MDRD) Laboratory test result [facility] ([facility] ) ID Date Data Source [id number] 01/25/2021 09:45:00 AM EDT [facility] ([facility]) Name Value Range Interpretation Code Description Data Gina rce(s) Supporting Document(s) Leukocytes [#/volume] in Blood by Automated count 4.0 x10*3/UL 4.1-10 .9 [facility] ([facility]) Erythrocytes [#/volume] in Blood by Automated count 4.33 x10*6/UL 4.2 0-6.30 [facility] ([facility]) Hemoglobin [Mass/volume] in Blood 13.5 g/dL 12.0-18.0 [facility] ([facility]) Hematocrit [Volume Fraction] of Blood by Automated count 40.5 % 3 7.0-51.0 [facility] ([facility]) MCV 93.7 fL 80.0-97.0 [facility] ([facility]) MCH 31.3 pg 26.0-32.0 [facility] ([facility]) MCHC 33.4 g/dL 31.0-38.0 [facility] ([facility]) Platelets [#/volume] in Blood by Automated count 225 x10*3/UL 140-440 [facility] Erythrocyte distribution width [Ratio] by Automated count 13.8 % 11.6-13.7 [facility] ([facility]) Lymph % 29.7 % 10.0-58.5 [facility] ([facility]) Mid % 7.0 % 1.7-9.3 [facility] ([facility]) MPV 7.3 FL 7.8-11.0 [facility] ([facility]) Lymph # 1.2 x10*3/UL 0.6-4.1 [facility] ([facility]) Neut % 63.3 % 37.0-92.0 [facility]) Mid # 0.3 x10*3/UL 0.1-0.6 [facility] ([facility]) Neut # 2.5 x10*3/UL 2.0-7.8 [facility] ([facility]) ID Date Data Source [id number] 01/09/2021 12:00:00 PM EDT [facility] ([facility]) Name Value Range Interpretation Code Description Data Gina rce(s) Supporting Document(s) TP Reflex HPV ASCUS Laboratory test result [facility] ([facility]) SPECIMEN PART------ A. 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 SPECIMEN ADEQUACY:Satisfactory for evaluation. ADDITIONAL FINDINGS:Atrophic pattern. TP Reflex HPV ASCUS Laboratory test result [facility] ([facility]) ID Date Data Source [id number] 09/10/2020 09:46:00 AM EDT [facility] ([facility]) Name Value Range Interpretation Code Description Data Gina rce(s) Supporting Document(s) Thyroxine (T4) free [Mass/volume] in Serum or Plasma 0.76 ng/dL 0.76- 1.46 [facility] ([facility]) ID Date Data Source [id number] 09/10/2020 09:46:00 AM EDT [facility] ([facility]) Name Value Range Interpretation Code Description Data Gina rce(s) Supporting Document(s) Thyrotropin [Units/volume] in Serum or Plasma by Detec tion limit <= 0.05 mIU/L 3.10 uIU/mL 0.36-3.74 [facility] ([facility] ) ID Date Data Source [id number] 09/10/2020 09:46:00 AM EDT [facility] Name Value Range Interpretation Code Description Data Gina rce(s) Supporting Document(s) Cholesterol [Mass/volume] in Serum or Plasma 201 mg/dL 131-200 [facility] ([facility]) Triglyceride [Mass/volume] in Serum or Plasma 46 mg/dL 30-150 [facility] ([facility]) Cholesterol in HDL [Mass/volume] in Serum or Plasma 95 mg/dL 35-60 [facility] ([facility]) Cholesterol in LDL [Mass/volume] in Serum or Plasma by calcu lation 97 CALC 50-159 [facility] ID Date Data Source [id number] 09/10/2020 09:46:00 AM EDT [facility] ([facility]) Name Value Range Interpretation Code Description Data Gina rce(s) Supporting Document(s) Glucose [Mass/volume] in Serum or Plasma 83 mg/dL 74-99 [facility] ([facility]) 100-125 mg/dL PRE-DIABETES/FASTING >126 mg/dL DIABETES/FASTING Urea nitrogen [Mass/volume] in Serum or Plasma 23 mg/dL 7-18 [facility] ([facility]) Creatinine 0.7 mg/dL 0.6-1.3 [facility] Chloride [Moles/volume] in Serum or Plasma 103 meq/L 98-107 [facility] ([facility]) Sodium [Moles/volume] in Serum or Plasma 143 meq/L 136-145 [facility] ([facility]) Potassium [Moles/volume] in Serum or Plasma 4.6 meq/L 3.5-5.1 [facility] ([facility]) Calcium [Mass/volume] in Serum or Plasma 8.8 mg/dL 8.5-10.1 [facility] ([facility]) Carbon dioxide, total [Moles/volume] in Serum or Plasma 32 meq/L 21 -32 [facility] ([facility]) Aspartate aminotransferase [Enzymatic activity/volume] in Serum or Plasma 23 U/L 15-37 [facility] ([facility] ) Alkaline phosphatase isoenzyme [Units/volume] in Serum or Pl asma 76 mg/dL 46-116 [facility] ([facility]) Total Bilirubin 0.6 mg/dL 0.2-1.0 [facility] ([facility]) Albumin [Mass/volume] in Serum or Plasma 4.0 g/dL 3.4-5.0 [facility] ([facility]) Alanine aminotransferase [Enzymatic activity/volume] in Seru m or Plasma 30 U/L 12-78 [facility] ([facility]) A/G Ratio 1.25 CALC 1.00-1.90 [facility]) Proteinase 3 Ab [Units/volume] in Serum 7.2 g/dL 6.4-8.2 [facility] ([facility]) Glomerular filtration rate/1.73 sq M pre dicted among non-blacks [Volume Rate/Area] in Serum or Plasma by Creatinine-based formula (MDRD) Laboratory test result [facility] Glomerular filtration rate/1.73 sq M pre dicted among blacks [Volume Rate/Area] in Serum or Plasma by Creatinine-based formula (MDRD) Laboratory test result [facility] <content>CHRONIC KIDNEY DISEASE STAGING PER NKF</content>
<content></content>
<content>STAGE I & II GFR >= 60 NORMAL TO MILDLY DECREASED</content>
<content>STAGE III GFR 30-59 MODERATELY DECREASED</content>
<content>STAGE IV GFR 15-29 SEVERELY DECREASED</content>
<content>STAGE V GFR <15 VERY LITTLE GFR LEFT</content>
<content>ESRD GFR <15 ON WARRANT CLERK</content>
<content></content> ID Date Data Source [id number] 09/10/2020 09:46:00 AM EDT [facility] Name Value Range Interpretation Code Description Data Gina rce(s) Supporting Document(s) Leukocytes [#/volume] in Blood by Automated count 3.9 x10*3/UL 4.1-10 .9 [facility] Erythrocytes [#/volume] in Blood by Automated count 4.26 x10*6/UL 4.2 0-6.30 [facility] MCV 93.3 fL 80.0-97.0 [facility] ([facility]) Hemoglobin [Mass/volume] in Blood 13.3 g/dL 12.0-18.0 [facility] Hematocrit [Volume Fraction] of Blood by Automated count 39.7 % 3 7.0-51.0 [facility] ([facility]) MCHC 33.5 g/dL 31.0-38.0 [facility] ([facility]) MCH 31.3 pg 26.0-32.0 [facility] ([facility]) Platelets [#/volume] in Blood by Automated count 219 x10*3/UL 140-440 [facility] Erythrocyte distribution width [Ratio] by Automated count 14.2 % 11.6-13.7 [facility] ([facility]) Lymph % 33.2 % 10.0-58.5 [facility] ([facility]) MPV 7.1 FL 7.8-11.0 [facility] ([facility]) Mid % 6.6 % 1.7-9.3 [facility] ([facility]) Lymph # 1.3 x10*3/UL 0.6-4.1 [facility] ([facility]) Neut % 60.2 % 37.0-92.0 [facility] ([facility]) Mid # 0.3 x10*3/UL 0.1-0.6 [facility] ([facility]) Neut # 2.3 x10*3/UL 2.0-7.8 [facility] ([facility]) ID Date Data Source [id number] 07/30/2020 04:43:00 PM EDT [facility] Name Value Range Interpretation Code Description Data Gina rce(s) Supporting Document(s) Laboratory test finding (navigational concept) 41.0 % 38.0-51.0 [facility] ([facility]) Laboratory test finding (navigational concept) 69 mg/dL 70-105 [facility] ([facility]) Laboratory test finding (navigational concept) 139 meq/L 136-145 [facility] ([facility]) Laboratory test finding (navigational concept) 101 meq/L 98-109 [facility] ([facility]) Laboratory test finding (navigational concept) 4.1 meq/L 3.5-5.1 [facility] ([facility]) Laboratory test finding (navigational concept) 5.4 mg/dL 4.5-5.3 [facility] ([facility]) Laboratory test finding (navigational concept) 31.0 MM/L 23.0-27.0 [facility] ([facility]) Laboratory test finding (navigational concept) 0.7 mg/dL 0.6-1.3 [facility] ([facility]) Laboratory test finding (navigational concept) 17 mg/dL 8-26 [facility] ([facility]) ID Date Data Source [id number] 07/30/2020 04:40:00 PM EDT [facility] ([facility]) Name Value Range Interpretation Code Description Data Gina rce(s) Supporting Document(s) Laboratory test finding (navigational concept) 0.49 0.4-2.0 [facility] ([facility]) ID Date Data Source [id number] 07/30/2020 04:38:00 PM EDT [facility] ([facility]) Name Value Range Interpretation Code Description Data Gina rce(s) Supporting Document(s) White Blood Count 5.8 10 4.0-10.0 [facility] ([facility]) Hemoglobin 13.6 g/dL 12.0-15.5 [facility] ([facility]) Red Blood Count 4.26 10 4.00-5.40 [facility] ([facility]) Hematocrit 41.5 % 36.0-47.0 [facility] ([facility]) Mean Corpuscular Volume 97.4 fl 80.0-96.0 [facility] ([facility]) Mean Corpuscular Hemoglobin 31.9 pg 27.0-33.0 [place] [facility] ([facility]) Mean Corpuscular HGB Conc 32.8 g/dL 32.0-36.5 MEDE NT ([facility]) Red Cell Distribution Width 13.2 % 11.5-14.5 [place] [facility] ([facility]) Neutrophils % 59.9 % 36.0-66.0 [facility] ([facility]) Platelet Count, Automated 253 10 150-450 MED[facility] NT ([facility]) Lymph % 26.8 % 24.0-44.0 [facility]) Atlantic % 8.1 % 2.0-8.0 [facility]) Eos % 3.9 % 0.0-3.0 [facility]) Baso % 1.0 % 0.0-1.0 [facility]) Nucleated Red Blood Cell % 0.0 % 0-0 MED [facility] ([facility]) Immature Granulocyte % 0.3 % 0-3.0 [facility] ([facility]) Neutrophils # 3.5 10 1.5-8.5 [facility] ([facility]) Lymph # 1.6 10 1.5-5.0 [facility] Atlantic # 0.5 10 0.0-0.8 [facility] ([facility]) Eos # 0.2 10 0.0-0.5 [facility] ([facility]) Baso # 0.1 10 0.0-0.2 [facility] ([facility]) ID Date Data Source [id number] 07/30/2020 12:07:00 PM EDT [facility] Name Value Range Interpretation Code Description Data Gina rce(s) Supporting Document(s) Lipoprotein lipase [Enzymatic activity/volume] in Serum or Plasm a 93 U/L 73-393 [facility] Helicobacter pylori IgG Ab [Presence] in Serum or Plas ma by Immunoassay Laboratory test result [facility] ([facility]) SERUM SAMPLES OBTAINED TOO EARLY DURING INFECTION MAY NOT CONTAIN DETECTABLE ANTIBODIES. IF H. PYLORI INFECTION IS SUSPECTED WITH A "NEGATIVE" SERUM RESULT, A FOLLOW UP SPECIMEN IS RECOMMENDED IN 2-7 WEEKS. ID Date Data Source [id number] 07/30/2020 12:06:00 PM EDT [facility] Name Value Range Interpretation Code Description Data Gina rce(s) Supporting Document(s) Urine Color Laboratory test result [facility] T ([facility]) Urine PH 6.5 units 5.0-9.0 [facility] ([facility]) Urine Appearance [facility] Urine Leukocytes Laboratory test result [facility] ([facility]) Specific gravity of Urine 1.015 1.005-1.030 [place] [facility] ([facility] Urine Blood Laboratory test result [facility] Urine Protein Laboratory test result 0-0 [facility] ([facility]) Urine Ketone Laboratory test result [facility] NT ([facility]) Urine Nitrite Laboratory test result [facility] ([facility]) Glucose [Presence] in Urine Laboratory [facility]) Urine Urobilinogen 0.2 mg/dL 0.2-1.0 [facility] ([facility]) Bilirubin.total [Mass/volume] in Serum or Plasma Laboratory test resu lt [facility] ([facility]) ID Date Data Source [id number] 07/30/2020 12:06:00 PM EDT [facility] ([facility]) Name Value Range Interpretation Code Description Data Gina rce(s) Supporting Document(s) Glucose [Mass/volume] in Serum or Plasma 80 mg/dL 74-99 [facility] ([facility]) 100-125 mg/dL PRE-DIABETES/FASTING >126 mg/dL DIABETES/FASTING Sodium [Moles/volume] in Serum or Plasma 141 meq/L 136-145 [facility] ([facility]) Urea nitrogen [Mass/volume] in Serum or Plasma 18 mg/dL 7-18 [facility] ([facility]) Creatinine 0.8 mg/dL 0.6-1.3 [facility] ([facility]) Potassium [Moles/volume] in Serum or Plasma 4.6 meq/L 3.5-5.1 [facility] ([facility]) Chloride [Moles/volume] in Serum or Plasma 103 meq/L 98-107 [facility] ([facility]) Carbon dioxide, total [Moles/volume] in Serum or Plasma 30 meq/L 21 -32 [facility] ([facility]) Calcium [Mass/volume] in Serum or Plasma 9.7 mg/dL 8.5-10.1 [facility] ([facility]) Aspartate aminotransferase [Enzymatic activity/volume] in Serum or Plasma 18 U/L 15-37 [facility] ([facility] ) Total Bilirubin 0.5 mg/dL 0.2-1.0 [facility] ([facility]) Alkaline phosphatase isoenzyme [Units/volume] in Serum or Pl asma 65 mg/dL 46-116 [facility] ([facility]) Albumin [Mass/volume] in Serum or Plasma 3.8 g/dL 3.4-5.0 [facility] ([facility]) Proteinase 3 Ab [Units/volume] in Serum 7.0 g/dL 6.4-8.2 [facility] Alanine aminotransferase [Enzymatic activity/volume] in Seru m or Plasma 24 U/L 12-78 [facility] A/G Ratio 1.19 CALC 1.00-1.90 [facility] Glomerular filtration rate/1.73 sq M pre dicted among non-blacks [Volume Rate/Area] in Serum or Plasma by Creatinine-based formula (MDRD) Laboratory test result [facility] Glomerular filtration rate/1.73 sq M pre dicted among blacks [Volume Rate/Area] in Serum or Plasma by Creatinine-based formula (MDRD) Laboratory test result [facility] <content>CHRONIC KIDNEY DISEASE STAGING PER NKF</content>
<content></content>
<content>STAGE I & II GFR >= 60 NORMAL TO MILDLY DECREASED</content>
<content>STAGE III GFR 30-59 MODERATELY DECREASED</content>
<content>STAGE IV GFR 15-29 SEVERELY DECREASED</content>
<content>STAGE V GFR <15 VERY LITTLE GFR LEFT</content>
<content>ESRD GFR <15 ON WARRANT CLERK</content>
<content></content> ID Date Data Source [id number] 07/30/2020 12:06:00 PM EDT [facility] ([facility] Name Value Range Interpretation Code Description Data Gina rce(s) Supporting Document(s) Leukocytes [#/volume] in Blood by Automated count 4.9 x10*3/UL 4.1-10 .9 [facility] ([facility]) Erythrocytes [#/volume] in Blood by Automated count 4.04 x10*6/UL 4.2 0-6.30 [facility] Hematocrit [Volume Fraction] of Blood by Automated count 37.1 % 3 7.0-51.0 [facility] Hemoglobin [Mass/volume] in Blood 12.9 g/dL 12.0-18.0 [facility] ([facility]) MCV 91.8 fL 80.0-97.0 [facility]) MCH 32.0 pg 26.0-32.0 [facility] ([facility]) Erythrocyte distribution width [Ratio] by Automated count 13.6 % 11.6-13.7 [facility] ([facility]) MCHC 34.8 g/dL 31.0-38.0 [facility] ([facility]) Platelets [#/volume] in Blood by Automated count 277 x10*3/UL 140-440 [facility] ([facility]) MPV 7.2 FL 7.8-11.0 [facility] ([facility]) Lymph % 26.4 % 10.0-58.5 [facility] ([facility]) Mid % 5.9 % 1.7-9.3 [facility] ([facility]) Neut % 67.7 % 37.0-92.0 [facility] ([facility]) Lymph # 1.3 x10*3/UL 0.6-4.1 [facility] ([facility]) Mid # 0.3 x10*3/UL 0.1-0.6 [facility] ([facility]) Neut # 3.3 x10*3/UL 2.0-7.8 [facility] ([facility]) Procedure Social History Code Duration Value Status Description Data Source(s ) Smoking 03/26/2021 12:00:00 AM EST Patient is a former smoker completed Patient is a former smoker [facility] ([facility]) Vital Signs ID Date Data Source UNK Name Value Range Interpretation Code Description Data Source(s) Systolic blood pressure 138 mm[Hg] 138 mm[Hg] M EDENT ([facility]) Diastolic blood pressure 78 mm[Hg] 78 mm[Hg] [facility] ([facility]) Heart rate 66 /min 66 /min [facility] ([facility]) Body height 64 [in_i] 64 [in_i] [facility] ([facility]) 5'4" Body weight 189.00 [lb_av] 189.00 [lb_av] [facility] T ([facility]) Body mass index (BMI) [Ratio] 32.4 kg/m2 32.4 k g/m2 [facility] ([facility]) Systolic blood pressure 140 mm[Hg] 140 mm[Hg] M EDENT ([facility]) Diastolic blood pressure 76 mm[Hg] 76 mm[Hg] [facility] ([facility]) Systolic blood pressure 125 mm[Hg] 125 mm[Hg] M [facility]ENT ([facility]) Diastolic blood pressure 70 mm[Hg] 70 mm[Hg] [facility] ([facility]) Heart rate 70 /min 70 /min [facility] ([facility]) Body height 64 [in_i] 64 [in_i] [facility] ([facility]) 5'4" Body weight 188.00 [lb_av] 188.00 [lb_av] [facility] T ([facility]) Body mass index (BMI) [Ratio] 32.3 kg/m2 32.3 k g/m2 [facility] ([facility]) Body height 62.75 [in_i] 62.75 [in_i] [facility] ([facility] 5'2.75" Body weight 191.00 [lb_av] 191.00 [lb_av] [facility] T ([facility]) Diastolic blood pressure 76 mm[Hg] 76 mm[Hg] [facility] ([facility]) Body mass index (BMI) [Ratio] 34.1 kg/m2 34.1 k g/m2 [facility] ([facility]) Body surface area Derived from formula 1.89 m2 1.89 m2 [facility] ([facility]) Systolic blood pressure 136 mm[Hg] 136 mm[Hg] M EDENT ([facility]) Systolic blood pressure 140 mm[Hg] 140 mm[Hg] M EDENT ([facility]) Diastolic blood pressure 76 mm[Hg] 76 mm[Hg] [facility] ([facility]) Heart rate 68 /min 68 /min [facility] ([facility]) Body height 64 [in_i] 64 [in_i] [facility] ([facility]) 5'4" Body weight 191.00 [lb_av] 191.00 [lb_av] [facility] T ([facility]) Body mass index (BMI) [Ratio] 32.8 kg/m2 32.8 k g/m2 [facility] ([facility]) Systolic blood pressure 136 mm[Hg] 136 mm[Hg] M EDENT ([facility]) Diastolic blood pressure 74 mm[Hg] 74 mm[Hg] [facility] ([facility]) Heart rate 80 /min 80 /min [facility] ([facility]) Body height 64 [in_i] 64 [in_i] [facility] ([facility]) 5'4" Body weight 180.00 [lb_av] 180.00 [lb_av] [facility] T ([facility]) Oxygen saturation in Arterial blood by Pulse oximetry 97 % 97 % [facility] ([facility]) Body mass index (BMI) [Ratio] 30.9 kg/m2 30.9 k g/m2 [facility] ([facility]) Diastolic blood pressure 72 mm[Hg] 72 mm[Hg] [facility] Heart rate 73 /min 73 /min [facility] ([facility]) Systolic blood pressure 140 mm[Hg] 140 mm[Hg] M [facility] ([facility]) Diastolic blood pressure 80 mm[Hg] 80 mm[Hg] [facility] ([facility]) Systolic blood pressure 138 mm[Hg] 138 mm[Hg] [facility] Respiratory rate 16 /min 16 /min [facility] ( [facility]) Body height 64 [in_i] 64 [in_i] [facility] ([facility]) 5'4" Body weight 179.50 [lb_av] 179.50 [lb_av] [facility] T ([facility]) Oxygen saturation in Arterial blood by Pulse oximetry 96 % 96 % [facility] ([facility]) Air Body mass index (BMI) [Ratio] 30.8 kg/m2 30.8 k g/m2 [facility] ([facility])
[2021-03-28] MEDS ORDERED: LIDOCAINE 1% SDV 30ML VIAL As Ordered ONE (07:15)
[2021-03-28] MEDS ORDERED: LIDOCAINE 2% 100MG/5ML SDV (FOR ANES.) As Ordered ONE (07:19)
[2021-03-28] MEDS ORDERED: propofoL 200 MG/20 ML VIAL As Ordered ONE (07:19)
[2021-03-28] MEDS ORDERED: MIDAZOLAM INJ 2MG/2ML VIAL (J2250 PER 1MG) As Ordered ONE (07:19)
[2021-03-28] MEDS ORDERED: fentaNYL 100 MCG/2 ML INJECTION (J3010) As Ordered ONE (07:19)
[2021-03-28] MEDS ORDERED: VANCOMYCIN 1000MG/20ML VIAL As Ordered ONE (07:35)
--- NOTE | 2021-03-28 08:47 | RO ---
OPERATIVE NOTE DATE OF OPERATION: 03/28/2021 PREOPERATIVE DIAGNOSIS/INDICATIONS FOR SURGERY: Incontinence with previous successful InterStim stage I. POSTOPERATIVE DIAGNOSIS: Incontinence with previous successful InterStim stage I. PROCEDURE: InterStim stage II with programming and removal of temporary leads, kellie palmer. SURGEON: Carlota Perea MD DISPATCH MANAGER: None. ANESTHESIA: Sedation and local. BRIEF DESCRIPTION OF PROCEDURE AND FINDINGS: Jane was brought to the operating room where she was placed prone and sedated in the usual fashion. She was prepped and positioned, and then numbed with lidocaine over the line of the extension connection. And then after waiting for the lidocaine to set up, an incision was made over the area of the future pocket and the extension elevated out. The leads from the temporary extension, which was removed, and then the pocket created sufficient to allow introduction of the InterStim device. This was cauterized in order to maintain good hemostasis and then irrigated with antibiotic irrigation. The water and vancomycin was used because the patient is cephalosporin allergic. Then connected the InterStim and placed it in the pocket. The first layer of the closure, tested impedance which showed that it was a good pocket, good response, and then the skin was closed with 3-0 Vicryl with good approximation and hemostasis achieved at both layers, and dry, sterile dressings then applied and, of course, programming will be done. ESTIMATED BLOOD LOSS: For the procedure was about 3 mL. FLUID REPLACEMENT: Crystalloids. COMPLICATIONS: None. CONDITION AND DISPOSITION: Jane tolerated the procedure well and was recovering in the recovery room in good condition.
[2021-03-28 09:00] VITALS: BP 150/70
== END 2021-03-28 09:10 | disposition home or self-care (01) ==
LOC: M SDC 06:03
PROVIDERS: ATTEND Obstetrics & Gynecology
DX: R32 Unspecified urinary incontinence (principal); K21.9 Gastro-esophageal reflux disease without esophagitis; E03.9 Hypothyroidism, unspecified; Z86.73 Personal history of transient ischemic attack (TIA), and cerebral infarction without residual deficits; Z86.718 Personal history of other venous thrombosis and embolism; F41.9 Anxiety disorder, unspecified; F32.9 Major depressive disorder, single episode, unspecified; Z87.891 Personal history of nicotine dependence; Z79.899 Other long term (current) drug therapy; Z88.1 Allergy status to other antibiotic agents; Z88.5 Allergy status to narcotic agent
CPT/HCPCS: 64590; C1787; J2250; J3010; J3370

== ENCOUNTER → 2021-09-27 | Outpatient (CLI) | payer MEDICARE, BC ==
[~2021-09-27] MED LIST changes: -LR 1,000 ML IV ONE; +NIZA150C10 PO; -NIZA150C4 PO; -VANCOMYCIN HCL 1,000 MG, VIAL MATE ADAPTER 1 EACH in NS 250 ML IV ONE
== END ==
LOC: M WHC 08:48
PROVIDERS: ATTEND Obstetrics & Gynecology
DX: Z12.31 Encounter for screening mammogram for malignant neoplasm of breast (principal); Z80.3 Family history of malignant neoplasm of breast; Z80.41 Family history of malignant neoplasm of ovary; Z80.0 Family history of malignant neoplasm of digestive organs

== ENCOUNTER → 2021-10-28 | Outpatient (CLI) | payer MEDICARE, BC | LOC: M WUC 14:48 | PROVIDERS: ATTEND Nurse Practitioner Adult Health | DX: R91.8 Other nonspecific abnormal finding of lung field (principal); R05.9 Cough, unspecified; R32 Unspecified urinary incontinence ==

== ENCOUNTER → 2021-10-28 | Outpatient (REF) | payer MEDICARE, BC | LOC: M LAB REF 16:02 | PROVIDERS: ATTEND Nurse Practitioner Adult Health | DX: R05.9 Cough, unspecified (principal); R91.8 Other nonspecific abnormal finding of lung field; R32 Unspecified urinary incontinence ==

== ENCOUNTER → 2022-02-25 | Outpatient (CLI) | payer MEDICARE, BC | LOC: M RAD 12:24 | PROVIDERS: ATTEND Physician Assistant Medical | DX: R22.32 Localized swelling, mass and lump, left upper limb (principal) ==

== ENCOUNTER → 2022-04-10 | Outpatient (CLI) | payer MEDICARE, BC ==
[2022-04-10 14:12] LABS: BLOOD UREA NITROGEN 21 MG/DL (9-23); CREATININE FOR GFR 0.67 MG/DL (0.55-1.30); GLOMERULAR FILTRATION RATE > 60.0 (>39)
== END ==
LOC: M LAB 12:46
PROVIDERS: ATTEND Surgery
DX: D48.9 Neoplasm of uncertain behavior, unspecified (principal)

== ENCOUNTER → 2022-04-16 | Outpatient (CLI) | payer MEDICARE, BC ==
[~2022-04-16] MED LIST changes: +PROHANCE 279.3MG/ML 15ML VIAL As Ordered ONE; +PROHANCE 279.3MG/ML 5ML VIAL As Ordered ONE
== END ==
LOC: M RAD 15:10
PROVIDERS: ATTEND Surgery
DX: D23.62 Other benign neoplasm of skin of left upper limb, including shoulder (principal)
CPT/HCPCS: 73223; A9576

== ENCOUNTER → 2022-10-22 | Outpatient (CLI) | payer MEDICARE, BC ==
[~2022-10-22] MED LIST changes: -PROHANCE 279.3MG/ML 15ML VIAL As Ordered ONE; -PROHANCE 279.3MG/ML 5ML VIAL As Ordered ONE
== END ==
LOC: M WUC 11:56
PROVIDERS: ATTEND Family Medicine
DX: R05.9 Cough, unspecified (principal)

== ENCOUNTER → 2023-02-10 | Outpatient (CLI) | payer MEDICARE, BC ==
[~2023-02-10] MED LIST changes: +TREL1AER
== END ==
LOC: M WHC 11:12
PROVIDERS: ATTEND Family Medicine
DX: Z12.31 Encounter for screening mammogram for malignant neoplasm of breast (principal)

== ENCOUNTER 2023-02-19 08:42 | Day surgery (SDC) | payer MEDICARE, BC ==
[~2023-02-19] VITALS: Ht 160 cm; Wt 86.2 kg
[~2023-02-19 08:42] MED LIST changes: +NS 1,000 ML IV ONE
[2023-02-19] MEDS ORDERED: LIDOCAINE 2% 100MG/5ML SDV (FOR ANES.) As Ordered ONE (09:53)
[2023-02-19] MEDS ORDERED: propofoL 500 MG/50 ML VIAL As Ordered ONE (09:53)
[2023-02-19 10:24] VITALS: TEMP 97.2
[2023-02-19] MEDS ORDERED: ESMOLOL INJ 100MG/10ML VIAL As Ordered ONE (10:30)
[2023-02-19 10:48] VITALS: BP 112/58; O2SAT 98
== END 2023-02-19 10:52 | disposition home or self-care (01) ==
LOC: M OPP 08:42
PROVIDERS: ATTEND Surgery
DX: Z12.11 Encounter for screening for malignant neoplasm of colon (principal); Z86.010 Personal history of colon polyps; K64.2 Third degree hemorrhoids; K57.30 Diverticulosis of large intestine without perforation or abscess without bleeding; Z87.891 Personal history of nicotine dependence; Z86.73 Personal history of transient ischemic attack (TIA), and cerebral infarction without residual deficits; Z79.02 Long term (current) use of antithrombotics/antiplatelets; Z79.51 Long term (current) use of inhaled steroids; Z79.890 Hormone replacement therapy; Z79.891 Long term (current) use of opiate analgesic; Z79.899 Other long term (current) drug therapy
CPT/HCPCS: G0105; J1805

== ENCOUNTER → 2023-04-15 | Outpatient (CLI) | payer MEDICARE, BC ==
[~2023-04-15] MED LIST changes: -NS 1,000 ML IV ONE
[2023-04-15 14:21] LABS: BASO # 0.1 10^3/uL (0.0-0.2); BASO % 1.1 % (0.0-1.0); EOS # 0.3 10^3/uL (0.0-0.5); EOS % 6.3 % (0.0-3.0); HEMATOCRIT 40.1 % (36.0-47.0); LYMPH # 1.3 10^3/uL (1.5-5.0); LYMPH % 27.2 % (24.0-44.0); MEAN CORPUSCULAR HEMOGLOBIN 31.6 pg (27.0-33.0); MEAN CORPUSCULAR HGB CONC 32.4 g/dl (32.0-36.5); MEAN CORPUSCULAR VOLUME 97.6 fl (80.0-96.0); MONO # 0.7 10^3/uL (0.0-0.8); MONO % 15.4 % (2.0-8.0); NEUTROPHILS # 2.3 10^3/uL (1.5-8.5); NEUTROPHILS % 49.4 % (36.0-66.0); PLATELET COUNT, AUTOMATED 240 10^3/uL (150-450); RED BLOOD COUNT 4.11 10^6/uL (4.00-5.40); WHITE BLOOD COUNT 4.7 10^3/uL (4.0-10.0)
[2023-04-15 14:53] LABS: ALBUMIN 3.7 G/DL (3.2-5.2); ALKALINE PHOSPHATASE 78 U/L (46-116); ALT/SGPT 20 U/L (7.0-40); AST/SGOT 22 U/L (<34); BILIRUBIN,TOTAL 0.4 MG/DL (0.3-1.2); BLOOD UREA NITROGEN 24 MG/DL (9-23); CALCIUM LEVEL 10.2 MG/DL (8.3-10.6); CARBON DIOXIDE LEVEL 29 MMOL/L (20-31); CHLORIDE LEVEL 104 MMOL/L (98-107); CREATININE FOR GFR 0.68 MG/DL (0.55-1.30); GLOMERULAR FILTRATION RATE > 60.0 (>39); GLUCOSE, FASTING 88 MG/DL (74-106); POTASSIUM SERUM 4.4 MMOL/L (3.5-5.1); SODIUM LEVEL 141 MMOL/L (136-145); TOTAL PROTEIN 6.8 G/DL (5.7-8.2)
== END ==
LOC: M LAB 13:26
PROVIDERS: ATTEND Podiatrist
DX: M20.21 Hallux rigidus, right foot (principal); M79.671 Pain in right foot

== ENCOUNTER 2023-05-01 07:53 | Day surgery (SDC) | payer MEDICARE, BC ==
[~2023-05-01] VITALS: Ht 160 cm; Wt 89.4 kg
[~2023-05-01 07:53] MED LIST changes: -ALBU8.5H; +ALBU8.5H INH; +BIOT5TAB3 PO; +D3 H10002 PO; +GENTAMICIN SULF 80MG/2ML VIAL As Ordered ONE; +LIDOCAINE 2% MDV 20ML VIAL As Ordered ONE; +PEPC1TAB5 PO; -SYNT175T2; +SYNT175T2 PO; -TREL1AER; +TREL1AER INH; -TROS20TA3; +TROS20TA3 PO; +VANCOMYCIN HCL 1,000 MG, VIAL MATE ADAPTER 1 EACH in D5W 250 ML IV ONE
[2023-05-01] MEDS ORDERED: LR 1,000 ML IV SCH (09:45)
[2023-05-01] MEDS ORDERED: ONDANSETRON 4MG 2ML VIAL As Ordered ONE (10:36)
[2023-05-01] MEDS ORDERED: propofoL 200 MG/20 ML VIAL As Ordered ONE (10:36)
[2023-05-01] MEDS ORDERED: fentaNYL 100 MCG/2 ML INJECTION As Ordered ONE (10:36)
[2023-05-01] MEDS ORDERED: ACETAMINOPHEN 1000MG 100ML IV BAG As Ordered ONE (10:36)
[2023-05-01] MEDS ORDERED: dexmedeTOMIDine (4MCG/ML)200MCG/50ML BTL (PRECEDEX) As Ordered ONE (10:36)
[2023-05-01] MEDS ORDERED: MIDAZOLAM INJ 2MG/2ML VIAL As Ordered ONE (12:00)
[2023-05-01 12:40] VITALS: BP 155/80; TEMP 97.9; O2SAT 98
== END 2023-05-01 12:56 | disposition home or self-care (01) ==
LOC: M SDC 07:53
PROVIDERS: ATTEND Podiatrist
DX: M20.5X1 Other deformities of toe(s) (acquired), right foot (principal); M20.31 Hallux varus (acquired), right foot; E03.9 Hypothyroidism, unspecified; Z79.899 Other long term (current) drug therapy; Z79.890 Hormone replacement therapy; Z90.710 Acquired absence of both cervix and uterus; E78.00 Pure hypercholesterolemia, unspecified; Z88.0 Allergy status to penicillin; Z88.1 Allergy status to other antibiotic agents; Z88.5 Allergy status to narcotic agent; Z87.891 Personal history of nicotine dependence; J44.9 Chronic obstructive pulmonary disease, unspecified; Z86.718 Personal history of other venous thrombosis and embolism; Z86.73 Personal history of transient ischemic attack (TIA), and cerebral infarction without residual deficits
CPT/HCPCS: 28750; 76000; C1713; C1769; J0131; J0665; J1580; J2250; J2405; J3010; J3370

== ENCOUNTER → 2024-03-01 | Outpatient (CLI) | payer MEDICARE, BC ==
[~2024-03-01] MED LIST changes: +GABA-1172 PO; -GABA-282 PO; -GENTAMICIN SULF 80MG/2ML VIAL As Ordered ONE; -LIDOCAINE 2% MDV 20ML VIAL As Ordered ONE; -VANCOMYCIN HCL 1,000 MG, VIAL MATE ADAPTER 1 EACH in D5W 250 ML IV ONE
== END ==
LOC: M WHC 09:22
PROVIDERS: ATTEND Family Medicine
DX: Z12.31 Encounter for screening mammogram for malignant neoplasm of breast (principal); R92.323 Mammographic fibroglandular density, bilateral breasts

== ENCOUNTER → 2024-07-29 | Outpatient (CLI) | payer MEDICARE, BC | LOC: M RAD 11:40 | PROVIDERS: ATTEND Family Medicine | DX: R10.9 Unspecified abdominal pain (principal); K59.00 Constipation, unspecified ==

== ENCOUNTER → 2024-07-29 | Outpatient (CLI) | payer MEDICARE, BC | LOC: M WUC 11:10 | PROVIDERS: ATTEND Family Medicine | DX: Z53.9 Procedure and treatment not carried out, unspecified reason (principal) ==

== ENCOUNTER → 2024-07-29 | Outpatient (REF) | payer MEDICARE, BC ==
[2024-07-29 16:04] LABS: BACTERIA, URINE AUTO NEGATIVE (NEGATIVE); RBC, URINE AUTO 0 /HPF (0-3); SQUAMOUS EPITHELIAL CELL UR AU 1 /HPF (0-6); WBC, URINE AUTO 0 /HPF (0-3)
[2024-07-29 16:20] LABS: APPEARANCE, URINE HAZY (CLEAR); COLOR, URINE AMBER (YELLOW)
[2024-07-29 16:21] LABS: BILIRUBIN, URINE AUTO NEGATIVE (NEGATIVE); BLOOD, URINE BLOOD NEGATIVE (NEGATIVE); GLUCOSE, URINE (UA) AUTO NEGATIVE (NEGATIVE); KETONE, URINE AUTO NEGATIVE (NEGATIVE); LEUKOCYTE ESTERASE, URINE AUTO NEGATIVE (NEGATIVE); NITRITE, URINE AUTO NEGATIVE (NEGATIVE); PROTEIN, URINE AUTO NEGATIVE (NEGATIVE); SPECIFIC GRAVITY URINE AUTO 1.012 (1.002-1.035); UROBILINOGEN, URINE AUTO 0.2 mg/dL (0.0-2.0)
== END ==
LOC: M LAB REF 14:52
PROVIDERS: ATTEND Family Medicine
DX: E03.9 Hypothyroidism, unspecified (principal); R30.0 Dysuria

== ENCOUNTER → 2024-09-15 | Outpatient (CLI) | payer MEDICARE, BC ==
[2024-09-15 14:33] LABS: BASO # 0.1 10^3/uL (0.0-0.2); BASO % 1.3 % (0.0-1.0); EOS # 0.4 10^3/uL (0.0-0.5); EOS % 6.2 % (0.0-3.0); HEMATOCRIT 38.7 % (36.0-47.0); HEMOGLOBIN 12.5 g/dl (12.0-15.5); LYMPH # 1.6 10^3/uL (1.5-5.0); LYMPH % 25.4 % (24.0-44.0); MEAN CORPUSCULAR HEMOGLOBIN 31.3 pg (27.0-33.0); MEAN CORPUSCULAR HGB CONC 32.3 g/dl (32.0-36.5); MONO # 0.8 10^3/uL (0.0-0.8); MONO % 12.3 % (2.0-8.0); NEUTROPHILS # 3.5 10^3/uL (1.5-8.5); NEUTROPHILS % 54.3 % (36.0-66.0); PLATELET COUNT, AUTOMATED 250 10^3/uL (150-450); RED BLOOD COUNT 3.99 10^6/uL (4.00-5.40); WHITE BLOOD COUNT 6.3 10^3/uL (4.0-10.0)
[2024-09-15 15:02] LABS: ALBUMIN 3.7 G/DL (3.2-5.2)
[2024-09-15 15:09] LABS: PERCENT SATURATION 31.5 % (13.2-45.0)
[2024-09-15 15:12] LABS: FERRITIN 50.4 NG/ML (7.3-270.7)
== END ==
LOC: M LAB 13:32
PROVIDERS: ATTEND Orthopaedic Surgery
DX: Z01.818 Encounter for other preprocedural examination (principal); M17.11 Unilateral primary osteoarthritis, right knee; M25.561 Pain in right knee

== ENCOUNTER → 2025-03-07 | Outpatient (CLI) | payer MEDICARE, BC | LOC: M WHC 09:45 | PROVIDERS: ATTEND Family Medicine | DX: Z12.31 Encounter for screening mammogram for malignant neoplasm of breast (principal); R92.323 Mammographic fibroglandular density, bilateral breasts ==

== ENCOUNTER → 2025-03-07 | Outpatient (CLI) | payer MEDICARE, BC | LOC: M WUC 11:48 | DX: M25.512 Pain in left shoulder (principal) ==